=== PATIENT | female | born 1950 | race Caucasian/White ===

== ENCOUNTER → 2018-04-04 15:34 | Outpatient (CLI) | payer MEDICARE, SELFPAY ==
[2018-04-04 16:44] LABS: Add Manual Diff / Slide Review NO; Basophils Percent Auto 1.7 % (0-2); Eosinophils Percent Auto 5.8 % (2-4); Hematocrit 44.3 % (36-46); Hemoglobin 14.4 g/dL (12.0-16.0); Lymphocytes Percent Auto 26.3 % (25-40); Mean Corpuscular HGB Conc 32.5 % (30-36); Mean Corpuscular Hemoglobin 29.2 PG (26-34); Mean Corpuscular Volume 89.8 fL (80-100); Monocytes Percent Auto 8.1 % (3-14); Neutrophils Absolute Auto 3000 /uL (3000-5900); Neutrophils Percent Auto 58.1 % (50-75); Platelet Count 259 X10^3/uL (150-400); Red Blood Cell Count 4.93 X10^6/uL (4.0-5.2); Red Cell Distribution Width 14.3 % (11.6-14.8); White Blood Cell Count 5.2 X10^3/uL (4.5-11.0)
[2018-04-04 17:41] LABS: BUN Creatinine Ratio 13.8 (6-22); Blood Urea Nitrogen 11 mg/dL (7-17); Calcium 9.2 mg/dL (8.4-10.2); Carbon Dioxide 28 mmol/L (22-32); Chloride 102 mmol/L (98-107); Estimated Glomerular Filt Rate > 60.0 mL/min (>60); Glucose 88 mg/dL (80-110); HEMOLYSIS < 15 (0-50); Sodium 140 mmol/L (137-145)
== END ==
PROVIDERS: Family Provider Internal Medicine; PCP Internal Medicine; Visit Provider Orthopaedic Surgery Orthopaedic Surgery of the Spine
DX: Z01.818 Encounter for other preprocedural examination (principal)
CPT/HCPCS: 36415; 80048; 85025; 93005

== ENCOUNTER 2018-04-20 06:08 | Day surgery (SDC) | payer MEDICARE, SELFPAY ==
[2018-04-13 08:21] VITALS: BMI 32.2
[2018-04-20] VITALS (20 sets, daily range): BP systolic 97–142; BP diastolic 58–86; PULSE 71–100; RESP 8–20; TEMP 36.2–36.9; O2SAT 92–99; BMI 32.1
--- NOTE | 2018-04-20 | DI.RAD.S_ITS ---
PROCEDURE: XR CERVICAL SPINE 2V OR 3V INDICATIONS: C4-5, C5-6 ACDF TECHNIQUE: 2 view(s) of the cervical spine were acquired. COMPARISON: [facility], , MR CERVICAL SPINE WITHOUT CONTRAST, 02/08/2018, 17:55. [facility], CR, XR CERVICAL SPINE 2 OR 3 VIEWS, 02/03/2018, 10:54. FINDINGS: Limited intraoperative images demonstrating anterior fusion at C4-5, C5-6. There is good anatomic alignment. IMPRESSION: Anterior fusion as above. Dictated by: Lynn David M.D. on 04/20/2018 at 10:21 Approved by: Lynn David M.D. on 04/20/2018 at 10:34
[2018-04-20] MEDS: LACTATED RINGERS 1,000 ML 42 ML IV ×2 (07:00→09:46)
[2018-04-20] MEDS: CEFAZOLIN 2 GM/100 ML FROZ.PIGGY IV ×2 (08:10→16:55)
--- NOTE | 2018-04-20 08:26 | PM.PREOP ---
Pre-operative Note Interval Note Pre-op Check: Yes History & Physical Reviewed by Physician, Yes Exam Performed and Yes History & Physical exam performed today by Physician Changes: No
--- NOTE | 2018-04-20 08:46 | SUR.OPER ---
Supine, head on gel donut. Arms padded with gel pads, tucked at sides, towel roll under shoulders. Safety belt at thigh. Legs uncrossed.
--- NOTE | 2018-04-20 10:10 | PM.OP.1 ---
Operative Date/Time/Diagnoses Date of procedure: 04/20/18 Time of procedure: 08:14 Pre-op diagnosis: 1. C4-5, C5-6 spinal stenosis. 2. C4-5, C5-6 spondylosis with radiculopathy Post-op diagnosis: same Procedure & Clinicians Procedure: 1. C4-5, C5-6 anterior cervical diskectomy and fusion 2. C4-5, C5-6 anterior interbody cage placement 3. C4-5, C5-6 anterior instrumentation with plate and screw placement in C4-5 and C5-6 vertebrae 4. Utilization of microsurgical technique and operating microscope Same procedure as scheduled: No Indications: Patient has been having chronic neck pain and worsening cervical radiculopathy. Patient failed multiple conservative management with worsening pain weakness and numbness in her upper extremity. Patient has been having difficulty performing activity of daily living. After discussing risks benefits of treatment options, patient elected proceed with surgery. Surgeon: Charles Tapia Benefits Sales Consultant: Juhi Grande Click Yes if Unassisted: No Anesthesia Type: General Operative Notes Closure Type: primary Specimen(s): none sent Estimated Blood Loss (mL): 50 Blood products transfused: none Procedure in detail: Patient was seen in the preoperative area. Risks and benefits of the surgery was discussed with the patient. Operative consent was obtained and placed in the chart. Patient was then taken to the operative room. Prophylactic antibiotic was given less than 0.5 hr prior to skin incision. General anesthesia was administered. Patient was placed into a supine position on her radiolucent table. Bilateral shoulders were taped down to allow proper C-arm imaging. Anterior cervical area was prepped and draped in a sterile fashion. Time-out was performed at this time. Using lateral C-arm imaging, the level between C4 and C6 was identified and marked on patient's neck. A oblique incision from midline towards medial border of sternocleidomastoid muscle was made. The platysma muscle was incised in line with skin incision. Metzenbaum scissor was used to develop the plane between the medial border of sternocleidomastoid d and the strap muscles medially. The carotid sheath and its contents were identified and protected behind the hand-held retractor during the entire case. The plane between the carotid sheath and strap muscles was developed with Metzenbaum scissors. Dissection was made down to the level of the anterior cervical fascia. Longus colli muscle was incised on the anterior aspect of vertebral bodies bilaterally from C4-5, C5-6. Spinal needle was placed into the C5-6 disc space and confirmed with lateral C-arm imaging. Using microsurgical technique and operative microscope, anterior cervical diskectomy was performed at C4-5, C5-6 level. This was done by removing the disc material, removing the anterior and posterior osteophytes posterior longitudinal ligaments along with performing bilateral foraminotomies at both levels. Patient was found to have severe central and foraminal stenosis at both levels. Patient's stenosis was fully decompressed after decompression was completed. After the diskectomy was completed, 2 anterior interbody cages were obtained. The cages were packed with globus Kinects bone grafting material along with epidural blood. One cage each along with the bone grafting material was then packed into the interbody spaces from C4-5, C5-6 with one cage into each interbody level. After the cages were placed, the anterior cervical plate was stabilized to the C4-5, C5-6 vertebrae using 2 screws at each each level. Total 6 screws were placed. After confirming placement of the hardware with AP and lateral C-arm imaging, the screws were locked into the plate using the locking mechanism and torque limiting screwdriver. After the hardware was placed and confirmed with AP and lateral C-arm imaging, the wound was irrigated with sterile normal saline. The platysma muscle and the subcutaneous tissue was closed with 2-0 Vicryl. The skin was closed with 4-0Monocryl and Steri-Strips. Patient tolerated the procedure well. Patient was transferred recovery room in stable condition. There were no complications. Complications: none Condition: stable Disposition: Acute Care Plan for aftercare: Admit to inpatient hospital
[2018-04-20] MEDS: fentaNYL 100 MCG/2 ML INJ 50 MCG IV ×4 (10:24→10:50)
[2018-04-20] MEDS: HYDROMORPHONE 2 MG INJ 0.5 MG IV ×4 (10:27→10:47)
[2018-04-20] MEDS: hydrOXYzine pamoate 25 MG CAPSULE PO (10:38)
--- NOTE | 2018-04-20 10:56 | SUR.PHASEI ---
report given to Richie Hanson. Transferred care of pt to Richie Hanson at this time.
--- NOTE | 2018-04-20 10:59 | SUR.PHASEI ---
assumed care of pt, report taken from Kirstin Guillen RN.
[2018-04-20] MEDS: LORazepam 2 MG/ML SYRINGE 0.5 MG IV (11:02)
[2018-04-20] MEDS: SODIUM CHLORIDE 0.9% 1,000 ML 100 ML IV ×2 (11:48→22:26)
[2018-04-20] MEDS: OXYCODONE IR 5 MG TABLET 10 MG PO ×2 (12:33→18:02)
--- NOTE | 2018-04-20 14:12 | PC.NURSE ---
Pt returned from surgery at 1130 hours. Drowsy but oriented. Given percolone for pain control PO which seems to be effective. Plan to continue q4H. O2 sats = 96% on 2L. Dressing to ant neck CDI. Reports she has problems with stress and urgency incontinence. Offered bedpan at 1400 but declined at this time .
--- NOTE | 2018-04-20 15:04 | PT.IIE ---
Current Diagnoses Spondylolisthesis, cervical region (04/20/18) Other spondylosis with radiculopathy, cervical region (04/20/18) Spinal stenosis, cervical region (04/20/18) Surgery Performed Operation Date: 04/20/18 07:45 Actual Procedures p C4-5, C5-6 ACDF w/Anterior Instru. - Charles Tapia MD Surgical History (Last Updated 04/13/18 @ 09:25 by Mare Dietz, RN) Hx of sinus surgery (Acute) Status post trigger finger release (Acute) Status post colonoscopy Status post colonoscopy Status post hysterectomy Medical History (Last Updated 04/13/18 @ 09:25 by Mare Dietz RN) Chronic constipation (Acute) Chronic cough (Acute) Chronic low back pain (Acute) History of rectocele (Acute 03/01/16) Recurrent sinusitis (Acute) DENNIS (stress urinary incontinence, female) (Acute) Physical Therapy Inpatient Evaluation/Re-Eval M1 PT/OT-IP Prior Functional Status Start: 04/20/18 16:57 Freq: NEEDED Status: Active Protocol: Document 04/20/18 15:04 (Rec: 04/20/18 17:18 [email or web address]) Medical Review Prior Functional Status Communication No deficits noted. Mobility and Gait Pt states previous ambulation tolerance is ~20ft with quad cane. She can do the 10 stairs to her basement using the rails and going very slow then taking a break at the bottom. Prior Functional Level (Other details) Pt states no falls, but several close calls losing her balance, including 2 close calls in the last month. Social History Household Members spouse Living Arrangements House Number of Floors (Floors) Two Floors Number of Stairs To Enter/Railing? 2 steps to enter, posts on B sides. 10 steps R rail to her daylight basement. Rarely used. Pt set up to live on main floor. Home Environment Standard Height Toilet Walk in Shower Home Equipment Four Wheel Walker Quad Cane Shower Seat with Backrest Hand Held Shower Grab Bars In Shower Employment Status Retired Additional Social History Comment Pt has Tempurpedic bed with mechanical HOB/feet that go up /down M1 PT/OT-IP Prior Functional Status Start: 04/21/18 08:52 Freq: NEEDED Status: Active Protocol: Document 04/21/18 08:52 CCC (Rec: 04/21/18 09:05 [id number]) Medical Review Prior Functional Status Medical History Reviewed Yes Communication No deficits noted. Mobility and Gait Pt states previous ambulation tolerance is ~20ft with quad cane. She can do the 10 stairs to her basement using the rails and going very slow then taking a break at the bottom. Activities of Daily Living and IADL's Pt states able to to all ADl's and IADl's. Prior Functional Level (Other details) Pt states no falls, but several close calls losing her balance, including 2 close calls in the last month. Social History Household Members spouse Living Arrangements House Number of Floors (Floors) Two Floors Number of Stairs To Enter/Railing? 2 steps to enter, posts on B sides. 10 steps R rail to her daylight basement. Rarely used. Pt set up to live on main floor. Home Environment Standard Height Toilet Walk in Shower Home Equipment Four Wheel Walker Quad Cane Shower Seat with Backrest Hand Held Shower Grab Bars In Shower Employment Status Retired Additional Social History Comment Pt has Tempurpedic bed with mechanical HOB/feet that go up /down M2 PT-IP Current Condition Start: 04/20/18 16:57 Freq: NEEDED Status: Active Protocol: Document 04/20/18 15:04 (Rec: 04/20/18 17:18 [email or web address]) Physical Therapy Current Condition Current Condition Evaluation Date 04/20/18 Treatment Diagnosis C-spine discectomy/fusion; difficulty walking Onset Date 04/20/18 Precautions Cervical Spine Precautions Soft Collar for Comfort No Heavy Lifting Log Roll Brace soft collar M3 PT-IP Subjective Start: 04/20/18 16:57 Freq: NEEDED Status: Active Protocol: Document 04/20/18 15:04 (Rec: 04/20/18 17:18 [email or web address]) Subjective Physical Therapy Visit Type Type Initial Evaluation Visit Start Time 15:04 Visit Stop Time 15:31 Total Visit Minutes 27 Number of CHEMICAL PLANT TECHNICAL DIRECTOR Visits 0 Physical Therapy Visit Comments Patient Comments Pt hesitant to work with PT, but agrees to try. Patient Goals Pt plans to d/c home with who is avaliable for 24/ assist. Therapy Pain Assessment Pain When Pain Assessed During Mobility Pain Present Pain Present Pain Reported Location neck Intensity 7 Scale Used Numeric (1 - 10) Pain Behaviors Guarding Pain Management Techniques Modification of Treatment Re-positioning Timing of Activity with Medications M4 PT-IP Mobility and Gait Start: 04/20/18 16:57 Freq: NEEDED Status: Active Protocol: Document 04/20/18 15:04 (Rec: 04/20/18 17:18 [email or web address]) PT-Bed Mobility Assessment Rolling Type of Rolling Log Rolling Bilateral Level of Assist Standby Assistance Supine to Sit Supine to Sit Minimal Assistance 1 Person Assistance Sit to Supine Sit to Supine Minimal Assistance 1 Person Assistance Scooting Scooting to Edge of Bed Standby Assistance PT-Transfer Assessment Sit to and From Stand Sit to and from Stand Contact Guard Assistance Equipment Transfer Assistive Device Gait Belt Front Wheeled Walker Orthotic/Prosthetic Devices or Brace: Yes Transfers Transfer Destination Bed Transfer Technique Ambulates to/from bed Comments Mobility Comments Supine BP 111/82 HR 101. Pt performs log roll with [place] to lift legs getting to supine and to assist upper body to sitting and mod cues. Seated BP 120/67 HR 91. Sit <> stand is CGA with min cues. Pt c/o slight dizziness/nausea with standing. Instructed in deep breathing. BP 115/67. Pt reports symptoms of dizziness decrease and agrees to attempt some steps in room. Gait Assessment Gait Gait Assistance Required: Contact Guard Assist Distance (Feet) 10 Able to Maintain Weight Bearing Status Yes During Gait Assistive Devices Assistive Device Gait Belt Front Wheeled Walker Orthotic/Prosthetic Devices or Brace: Yes Gait Deviations General Gait Pattern Decreased Stride Length Decreased Feet Clearance Factors Limiting Gait Function Factors Limiting Gait Function Decreased Activity Tolerance Decreased Strength Limited Range of Motion Pain Poor Balance Poor Safety Awareness Comments Gait Comments Pt ambulates 10 ft in room with fww CGA. She is slow and guarded with ambulation, demonstrating small, low clearance steps. No LOB noted . BP post ambulation 109/75 HR 101. PT-Balance Assessment Sitting Balance and Reactions Static Sitting Balance Ability Good Dynamic Sitting Balance Ability Good Standing Balance and Reactions Static Standing Balance Ability Fair Dynamic Standing Balance Ability Fair Device Used fww M5 PT-IP Objective Assessments Start: 04/20/18 16:57 Freq: NEEDED Status: Active Protocol: Document 04/20/18 15:04 (Rec: 04/20/18 17:18 [email or web address]) Orientation Orientation/Cognition Level of Alertness Alert Orientation Name Birthday Place Situation Language Function Ability No Deficits Noted Safety Awareness Decreased Safety Awareness Comments Pt drowsy and responds appropriately but slowly. Gross Range of Motion Lower Extremity ROM Assessment Within Functional Limits Strength Comments Strength Comments BLE 4/5 Sensation Assessment Comments Sensation Comments Denies numbness and tingling. M6 PT-IP Treatment Start: 04/20/18 16:57 Freq: NEEDED Status: Active Protocol: Document 04/20/18 15:04 (Rec: 04/20/18 17:18 [email or web address]) Physical Therapy Treatment Education Education Provided Precautions Post-Op Packet Safety M7 PT-IP Assessment and Plan Start: 04/20/18 16:57 Freq: NEEDED Status: Active Protocol: Document 04/20/18 15:04 (Rec: 04/20/18 17:18 [email or web address]) PT Summary Assessment and Plan Potential Rehabilitation Potential Good Status of Condition at Evaluation Stable Summary Impairments Pain ROM Strength Balance Bed Mobility Transfers Gait Activity Tolerance Progress Towards Goals Slow Progress due to Pain Slow Progress due to Activity Tolerance Assessment Summary Pt s/p cervical discectomy and fusion with difficulty walking. She ambulated 10 ft CGA with fww and is [place] with bed mobility. Pt needs to complete stair climbing and progress ambulation prior to d /c. Pt is also a fall risk requiring balance assessment. When pt is medically stable, recommend d/c to home with 24/ 7 assist. Goals Bed Mobility Goal Standby Assistance Transfer Goal Standby Assistance Cane Front Wheeled Walker Four Wheeled Walker Gait Goal Standby Assistance Cane Front Wheel Walker Four Wheel Walker Gait Distance 20 Other Goals Pt will ambulate 20 ft withi least restrictive device (PLOF with quad cane). Days to Meet Goals 3 Frequency of Treatment Frequency Of Treatment Twice a Day Treatment Plan Physical Therapy Treatment Plan Bed Mobility Training Transfer Training Gait Training Therapeutic Exercise Balance Retraining Post Op Education Discharge Planning Hot or Cold Pack Neuromuscular Re-ed Coordination Retraining Manual Therapy Other Recommendations and Next Treatment Progress ambulation with least Focus restrictive device. Pt usually uses quad cane and owns a 4ww. She so far has only ambulated with fww. Up/down 2 steps with B rail ( she has B posts on her steps at home) Balance/fall risk assessment Recommendations To Nursing Amount of Assist Needed 1 Person Assist Discharge Recommendations PT Discharge Recommendations Home with 24/7 Assist Equipment Needed for Home Before fww pending pt functional Discharge status at d/c
[2018-04-20] MEDS: DOCUSATE 100 MG CAPSULE PO (20:47)
[2018-04-20] MEDS: SENNOSIDES 8.6 MG TABLET 17.2 MG PO (20:47)
[2018-04-20] MEDS: ALPRAZolam 0.25 MG TABLET 0.5 MG PO (20:53)
[2018-04-21] MEDS: BENZOCAINE/MENTHOL 1 LOZ PKT 1 EACH PO (00:02)
[2018-04-21] MEDS: CEFAZOLIN 2 GM/100 ML FROZ.PIGGY IV (00:03)
[2018-04-21] MEDS: OXYCODONE IR 5 MG TABLET 10 MG PO ×4 (00:05→11:06)
[2018-04-21 04:00] VITALS: BP 129/70; PULSE 78; RESP 16; TEMP 36.8; O2SAT 97
[2018-04-21] MEDS: LEVOTHYROXINE 50 MCG TABLET PO (06:42)
[2018-04-21] MEDS: DOCUSATE 100 MG CAPSULE PO (07:52)
[2018-04-21] MEDS: DULOXETINE 30 MG CAPSULE 60 MG PO (07:52)
[2018-04-21] MEDS: ALPRAZolam 0.25 MG TABLET 0.5 MG PO (07:58)
[2018-04-21 08:00] VITALS: BP 113/67; PULSE 88; RESP 16; TEMP 36.9; O2SAT 94
--- NOTE | 2018-04-21 09:00 | PT.IPTN ---
Current Diagnoses Spondylolisthesis, cervical region (04/20/18) Other spondylosis with radiculopathy, cervical region (04/20/18) Spinal stenosis, cervical region (04/20/18) Surgery Performed Operation Date: 04/20/18 07:45 Actual Procedures p C4-5, C5-6 ACDF w/Anterior Instru. - Charles Tapia MD Physical Therapy Treatment Note M2 PT-IP Current Condition Start: 04/20/18 16:57 Freq: NEEDED Status: Active Protocol: Document 04/20/18 15:04 (Rec: 04/20/18 17:18 [email or web address]) Physical Therapy Current Condition Current Condition Evaluation Date 04/20/18 Treatment Diagnosis C-spine discectomy/fusion; difficulty walking Onset Date 04/20/18 Precautions Cervical Spine Precautions Soft Collar for Comfort No Heavy Lifting Log Roll Brace soft collar M3 PT-IP Subjective Start: 04/20/18 16:57 Freq: NEEDED Status: Active Protocol: Document 04/21/18 09:00 GGD (Rec: 04/21/18 11:49 GGD [id number]) Subjective Physical Therapy Visit Type Type Treatment Note Visit Start Time 08:35 Visit Stop Time 09:00 Total Visit Minutes 25 Number of ROTARY RIG ENGINE OPERATOR Visits 1 Physical Therapy Visit Comments Patient Comments Pt states she hopes to go home today. Therapy Pain Assessment Pain When Pain Assessed During Mobility Pain Present Pain Present Pain Reported M4 PT-IP Mobility and Gait Start: 04/20/18 16:57 Freq: NEEDED Status: Active Protocol: Document 04/21/18 09:00 GGD (Rec: 04/21/18 11:49 GGD [id number]) PT-Transfer Assessment Sit to and From Stand Sit to and from Stand Contact Guard Assistance Equipment Transfer Assistive Device Gait Belt Front Wheeled Walker Orthotic/Prosthetic Devices or Brace: Yes Transfers Transfer Destination Bed Gait Assessment Gait Gait Assistance Required: Standby Assistance Distance (Feet) 25 Able to Maintain Weight Bearing Status Yes During Gait Assistive Devices Assistive Device Gait Belt Front Wheeled Walker Orthotic/Prosthetic Devices or Brace: Yes Gait Deviations General Gait Pattern Decreased Stride Length Decreased Feet Clearance Factors Limiting Gait Function Factors Limiting Gait Function Decreased Activity Tolerance Decreased Strength Limited Range of Motion Pain Poor Balance Poor Safety Awareness Comments Gait Comments trial of gait x 5 feet with quad cane. Then gait with FWW. M5 PT-IP Objective Assessments Start: 04/20/18 16:57 Freq: NEEDED Status: Active Protocol: Document 04/20/18 15:04 (Rec: 04/20/18 17:18 [email or web address]) Orientation Orientation/Cognition Level of Alertness Alert Orientation Name Birthday Place Situation Language Function Ability No Deficits Noted Safety Awareness Decreased Safety Awareness Comments Pt drowsy and responds appropriately but slowly. Gross Range of Motion Lower Extremity ROM Assessment Within Functional Limits Strength Comments Strength Comments BLE 4/5 Sensation Assessment Comments Sensation Comments Denies numbness and tingling. M6 PT-IP Treatment Start: 04/20/18 16:57 Freq: NEEDED Status: Active Protocol: Document 04/21/18 09:00 GGD (Rec: 04/21/18 11:49 GGD [id number]) Physical Therapy Treatment Education Education Provided Precautions Safety M7 PT-IP Assessment and Plan Start: 04/20/18 16:57 Freq: NEEDED Status: Active Protocol: Document 04/21/18 09:00 GGD (Rec: 04/21/18 11:49 GGD [id number]) PT Summary Assessment and Plan Summary Assessment Summary Pt had mild unsteadiness with gait with quad cane. She improved stability with FWW and had no LOB. She plans on using walker at home. She was safe and stable with transfers . Frequency of Treatment Frequency Of Treatment Twice a Day Treatment Plan Physical Therapy Treatment Plan Bed Mobility Training Transfer Training Gait Training Therapeutic Exercise Balance Retraining Post Op Education Discharge Planning Hot or Cold Pack Neuromuscular Re-ed Coordination Retraining Manual Therapy Recommendations To Nursing Amount of Assist Needed 1 Person Assist Discharge Recommendations PT Discharge Recommendations Home with 27/12 Assist
--- NOTE | 2018-04-21 09:05 | OT.IP.EVAL ---
Current Diagnoses Spondylolisthesis, cervical region (04/20/18) Other spondylosis with radiculopathy, cervical region (04/20/18) Spinal stenosis, cervical region (04/20/18) Surgery Performed Operation Date: 04/20/18 07:45 Actual Procedures p C4-5, C5-6 ACDF w/Anterior Instru. - Charles Tapia MD Past Medical History (Last Updated 04/13/18 @ 09:25 by Mare Dietz, RN) Chronic constipation (Acute) Chronic cough (Acute) Chronic low back pain (Acute) History of rectocele (Acute 03/01/16) Recurrent sinusitis (Acute) DENNIS (stress urinary incontinence, female) (Acute) Surgical History (Last Updated 04/13/18 @ 09:25 by Mare Dietz RN) Hx of sinus surgery (Acute) Status post trigger finger release (Acute) Status post colonoscopy Status post colonoscopy Status post hysterectomy Occupational Therapy Inpatient Evaluation/Re-Eval M1 PT/OT-IP Prior Functional Status Start: 04/20/18 16:57 Freq: NEEDED Status: Active Protocol: Document 04/20/18 15:04 (Rec: 04/20/18 17:18 [id number]) Medical Review Prior Functional Status Communication No deficits noted. Mobility and Gait Pt states previous ambulation tolerance is ~20ft with quad cane. She can do the 10 stairs to her basement using the rails and going very slow then taking a break at the bottom. Prior Functional Level (Other details) Pt states no falls, but several close calls losing her balance, including 2 close calls in the last month. Social History Household Members spouse Living Arrangements House Number of Floors (Floors) Two Floors Number of Stairs To Enter/Railing? 2 steps to enter, posts on B sides. 10 steps R rail to her daylight basement. Rarely used. Pt set up to live on main floor. Home Environment Standard Height Toilet Walk in Shower Home Equipment Four Wheel Walker Quad Cane Shower Seat with Backrest Hand Held Shower Grab Bars In Shower Employment Status Retired Additional Social History Comment Pt has Tempurpedic bed with mechanical HOB/feet that go up /down M1 PT/OT-IP Prior Functional Status Start: 04/21/18 08:52 Freq: NEEDED Status: Active Protocol: Document 04/21/18 08:52 [facility] (Rec: 04/21/18 09:05 [facility] [id number]) Medical Review Prior Functional Status Medical History Reviewed Yes Communication No deficits noted. Mobility and Gait Pt states previous ambulation tolerance is ~20ft with quad cane. She can do the 10 stairs to her basement using the rails and going very slow then taking a break at the bottom. Activities of Daily Living and IADL's Pt states able to to all ADl's and IADl's. Prior Functional Level (Other details) Pt states no falls, but several close calls losing her balance, including 2 close calls in the last month. Social History Household Members spouse Living Arrangements House Number of Floors (Floors) Two Floors Number of Stairs To Enter/Railing? 2 steps to enter, posts on B sides. 10 steps R rail to her daylight basement. Rarely used. Pt set up to live on main floor. Home Environment Standard Height Toilet Walk in Shower Home Equipment Four Wheel Walker Quad Cane Shower Seat with Backrest Hand Held Shower Grab Bars In Shower Employment Status Retired Additional Social History Comment Pt has Tempurpedic bed with mechanical HOB/feet that go up /down M2 OT-IP Current Condition Start: 04/21/18 08:52 Freq: Status: Active Protocol: Document 04/21/18 08:52 [facility] (Rec: 04/21/18 09:05 [facility] [id number]) Occupational Therapy Current Condition Current Condition Evaluation Date 04/21/18 Treatment Diagnosis C-spine discectomy/fusion Diagnosis Onset Date 04/21/18 Post Operative Precautions Cervical Spine Precautions Soft Collar for Comfort No Heavy Lifting Log Roll M3 OT- IP Subjective and Pain Start: 04/21/18 08:52 Freq: Status: Active Protocol: Document 04/21/18 08:52 [facility] (Rec: 04/21/18 09:05 [facility] [id number]) OT- Subjective Occupational Therapy Visit Type Type Initial Evaluation Visit Start Time 08:15 Visit Stop Time 08:40 Total Visit Minutes 25 Occupational Therapy Visit Comments Patient Comments Pt agreeable to get up. Patient/Caregiver Goals Pt wanting to go home when stable. OT Pain Assessment Pain When Pain Assessed At Rest Pain Present Pain Present Denied Pain M4 OT- IP ADL's Start: 04/21/18 08:52 Freq: Status: Active Protocol: Document 04/21/18 08:52 [facility] (Rec: 04/21/18 09:05 [facility] [id number]) OT MNA-Hhmi-Divtaow Comments OT Self-Feeding Comments Educated pt to alternate between solid and liquids, chew food longer and softer food will make it easier to chew. OT ADL-Grooming General Evaluation Grooming Ability Standby Assistance Areas Needing Assistance Retrieving/Set-up of Grooming Items Comments OT Grooming Comments Pt vc for soft collar rommel tighter to support her neck better and then able to do all on her own. Pt tends to want to where the collar loose as feel a little claustrophobic. OT ADL-Oral Care Devices Oral Care Devices Electric Toothbrush M5 OT- IP IADL's Start: 04/21/18 08:52 Freq: Status: Active Protocol: Document 04/21/18 08:52 [facility] (Rec: 04/21/18 09:05 [facility] [id number]) OT-Instrumental Activities of Daily Living Medication Management Medication Management Comments states can provide assist as pt a bit groggy from pain medications. Meal Preparation Meal Preparation Comments to assist. Resolute Professional Resolute Professional Comments to assist. M6 OT- IP Functional Cognition Start: 04/21/18 08:52 Freq: Status: Active Protocol: Document 04/21/18 08:52 [facility] (Rec: 04/21/18 09:05 [facility] [id number]) Cognitive Factors Limiting Selfcare Function Cognitive Ability Level of Alertness Alert Patient Orientation Name Situation Attention Span Ability Capable of Focused Attention Capable of Sustained Attention Ability to Follow Commands Able to Follow One Step Commands Memory Description No Deficits Noted Safety Awareness Underestimates Need for Assistance Cognitive Comments Cognitive Assessment Comments Pt a bit groggy from medications. Pt needing vc to push up from the surface on the bed versus just grab the walker to stand. M7 OT- IP Mobility and Balance Start: 04/21/18 08:52 Freq: Status: Active Protocol: Document 04/21/18 08:52 [facility] (Rec: 04/21/18 09:05 [facility] [id number]) OT- Bed Mobility Assessment Rolling Type of Rolling Roll to Left Level of Assistance Standby Assistance Head of Bed Elevated Supine to Sit Supine to Sit Assist Standby Assistance OT-Transfer Assessment Sit to and From Stand Sit to and from Stand Standby Assistance Transfers Transfer Ability Standby Assistance Technique Transfer Destination Chair Transfer Technique Stand Step Pivot Devices Transfer Assistive Devices Gait Belt Front Wheeled Walker Comments Mobility Comments Pt's able to assist pt and needing SBA, pt will need CGA to YANIV for uneven surfaces. Pt O2 on 2L at 99- 100% and trial on RA after getting up dropped from 97% to 93% and then back up to 98% after educated to take a few deep breaths. Nurse notified and okayed to keep O2 off. OT- Balance Assessment Sitting Balance and Reactions Static Sitting Balance Ability Normal Dynamic Sitting Balance Ability Normal Standing Balance and Reactions Static Standing Balance Ability Normal Dynamic Standing Balance Ability Good M8 OT- IP Objective Assessments Start: 04/21/18 08:52 Freq: Status: Active Protocol: Document 04/21/18 08:52 [facility] (Rec: 04/21/18 09:05 [facility] [id number]) OT Gross Range of Motion Upper Extremity Range of Motion Assessment Within Functional Limits OT-Muscle Tone Assessment Muscle Tone WNL Yes M9 OT- IP Assessment and Plan Start: 04/21/18 08:52 Freq: Status: Active Protocol: Document 04/21/18 08:52 [facility] (Rec: 04/21/18 09:05 [facility] [id number]) OT Summary Assessment and Plan Potential Rehabilitation Potential Excellent Analytic Complexity at Evaluation Low Summary OT Impairments Functional Cognition Functional Mobility Dressing Bathing Progress Towards Goals Progressing Toward Goals Assessment Summary Pt low complexity and doing well, to be there to provide assist especially for ADL and IADl needs. Pt needing to use FWW at this time for functional mobility. Pt to go home with when medically stable. Goals Dressing Goal Independent Toileting Goal Independent Bathing Goal Standby Assistance Toilet Transfer Goal Independent Shower Transfer Goal Standby Assistance Patient/Caregiver Education Goal Demonstrate Post-Op Precautions Caregiver Independent Assisting Patient Days to Meet Goals 1 Frequency of Treatment Frequency Of Treatment Once a Day Treatment Plan OT Treatment Plan ADL Training Functional Cognition Training Functional Mobility Patient/Family Education Discharge Planning Other Treatment Recommendations and Next Shower Treatment Focus Discharge Recommendations OT Discharge Recommendations Home with 27/12 Assist
--- NOTE | 2018-04-21 10:33 | PM.DS.1 ---
History of Present Illness Date Patient Seen: 04/21/18 Time Patient Seen: 10:33 Chief complaint: [id number] Narrative: Hospital day 2, postop day 1 following C5-6, C6-7 ACDF with cage and anterior plate and screws by Dr. Tapia. Pain controlled with oxycodone 10 mg. she is able to swallow with slight difficulty. States that her preoperative arm symptoms have resolved. She does feel that she is ready to be discharged home today. Discharge Providers Date of admission: 04/20/18 06:08 Primary care physician: EDMUND King Consults: 04/20/18 11:34 Consult to Occupational Therapy Evaluate & Treat Comment: Physician Instructions: Evaluate and treat Consult to Physical Therapy Evaluate & Treat Comment: Physician Instructions: Evaluate and Treat Discharge provider: Ru Diaz PA-C Discharge Date: 04/21/18 Summary Discharge Diagnosis: Status post C5-6, C6-7 ACDF, cage, anterior plate. Hospital Course: Patient brought to hospital on 04/20/2018 for above-noted surgery. She remained stable postoperatively. Ambulating with physical therapy. She felt that she was able to be discharged home on postop day 1. Status at Discharge Cognitive/behavioral status at discharge: alert, oriented in no acute distress sitting in chair. Overall status at discharge: patient is progressing back to baseline Time Spent with Patient Less than 30 minutes Exam Vital Signs (past 8 hours): - 04/21/18 04:00 Temperature 98.3 F Pulse Rate 78 Respiratory Rate 16 Blood Pressure 129/70 Pulse Oximetry 97 Oxygen Delivery Method Room Air Oxygen Flow Rate 2 Discharge Plan Discharge Plan Patient Disposition: Home Discharge comment: Discharged home after clearance by PT. Continue with soft cervical collar for the next week. Discharge Med Rec/Prescriptions Prescriptions: New acetaminophen 325 mg Tablet 650 mg PO Q6HR PRN (Reason: Pain, Mild (1-3)) Qty: 30 RF: 0 oxycodone 5 mg Tablet 10 mg PO Q3HR PRN (Reason: Pain, Severe (7-10)) Qty: 30 RF: 0 benzocaine-menthol [Cepacol Sore Throat (shaji-men)] 15-3.6 mg Lozenge 1 ea PO Q1HR PRN (Reason: Sore Throat) Qty: 30 RF: 0 Continue loratadine [Claritin] 10 MG tablet 10 mg PO DAILY PRN (Reason: bronchial allergy) Qty: 0 RF: 0 estradiol [Climara] 0.1 MG/24 HR patch weekly 0.1 mg Topical Q7D@0900 Qty: 12 RF: 3 alprazolam [Xanax] 0.5 mg tablet See Label Instructions PO TIDP PRN (Reason: anxiety) Qty: 30 RF: 0 levothyroxine 50 mcg tablet 50 mcg PO QAM RF: 0 duloxetine 60 mg capsule,delayed release(DR/EC) 60 mg PO DAILY Qty: 90 RF: 3 acetaminophen [Tylenol Extra Strength] 500 mg Tablet 1,000 mg PO BID PRN (Reason: pain) RF: 0 gemrip-obo-T-Mn-herb#21 [Glucosamine-MSM Complex] Tablet 1 tab PO BID RF: 0 Follow up/Referrals: Emperatriz Peters ARNP [Primary Care Provider] - As previously scheduled Discharge Orders: Discharge (Order); Ordered 04/21/18 Ordered By: Ru Diaz Provider Discharge Instructions Diet: Diet as Tolerated Diet comment: use liquid and soft diet for the next 1-2 weeks as needed. Activity: Avoid excessive bending or twisting of head and neck. He has soft collar as needed. No lifting or carrying more than 5-10 lb. Skin/Wound/Dressing Care Dressing: Keep dressing to left neck dry and clean. Visit Report/Discharge Packet Instructions: DI for Anterior Cervical Discectomy and Fusion, Oxycodone Visit Report Forms: Stroke Signs & Symptoms Discharge Data Primary Care Provider: Emperatriz Peters Attending Provider: Charles Tapia Discharges patient from system. Discharge Date/Time: 04/21/18 12:07 Quality VTE Deep Vein Thrombosis/Pulmonary Embolism Present on Admission: No
--- NOTE | 2018-04-21 10:36 | PM.DS.1 ---
History of Present Illness Chief complaint: [id number] Narrative: Hospital day 2, postop day 1 following C5-6, C6-7 ACDF with cage and anterior plate and screws by Dr. Tapia. Pain controlled with oxycodone 10 mg. she is able to swallow with slight difficulty. States that her preoperative arm symptoms have resolved. She does feel that she is ready to be discharged home today. Discharge Providers Date of admission: 04/20/18 06:08 Primary care physician: EDMUND King Consults: 04/20/18 11:34 Consult to Occupational Therapy Evaluate & Treat Comment: Physician Instructions: Evaluate and treat Consult to Physical Therapy Evaluate & Treat Comment: Physician Instructions: Evaluate and Treat Discharge provider: Ru Diaz PA-C Discharge Date: 04/21/18 Summary Discharge Diagnosis: Status post C5-6, C6-7 ACDF with cage and anterior plate. Hospital Course: Patient brought to hospital on 04/20/2018 for above noted surgery. She remained stable overnight. Pain was controlled with oxycodone. Her preoperative arm symptoms had resolved. Patient felt she was ready to be discharged home on postop day 1. Status at Discharge Cognitive/behavioral status at discharge: alert, oriented no acute distress sitting in chair. Overall status at discharge: patient is progressing back to baseline Time Spent with Patient Less than 30 minutes Exam Vital Signs (past 8 hours): - 04/21/18 04:00 Temperature 98.3 F Pulse Rate 78 Respiratory Rate 16 Blood Pressure 129/70 Pulse Oximetry 97 Oxygen Delivery Method Room Air Oxygen Flow Rate 2 Narrative Exam Narrative: Neck. Dressing to left anterior neck is dry without drainage or inflammation. Soft cervical collar in place. Arms. 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 Pulses and sensation and symmetrical. Good strength on elbow flexion and extension and shoulder AB duction against resistance is symmetrical. Discharge Plan Discharge Plan Patient Disposition: Home Discharge comment: Discharged home after clearance by PT. Continue with soft cervical collar for the next week. Discharge Med Rec/Prescriptions Prescriptions: New acetaminophen 325 mg Tablet 650 mg PO Q6HR PRN (Reason: Pain, Mild (1-3)) Qty: 30 RF: 0 oxycodone 5 mg Tablet 10 mg PO Q3HR PRN (Reason: Pain, Severe (7-10)) Qty: 30 RF: 0 benzocaine-menthol [Cepacol Sore Throat (shaji-men)] 15-3.6 mg Lozenge 1 ea PO Q1HR PRN (Reason: Sore Throat) Qty: 30 RF: 0 Continue loratadine [Claritin] 10 MG tablet 10 mg PO DAILY PRN (Reason: bronchial allergy) Qty: 0 RF: 0 estradiol [Climara] 0.1 MG/24 HR patch weekly 0.1 mg Topical Q7D@0900 Qty: 12 RF: 3 alprazolam [Xanax] 0.5 mg tablet See Label Instructions PO TIDP PRN (Reason: anxiety) Qty: 30 RF: 0 levothyroxine 50 mcg tablet 50 mcg PO QAM RF: 0 duloxetine 60 mg capsule,delayed release(DR/EC) 60 mg PO DAILY Qty: 90 RF: 3 acetaminophen [Tylenol Extra Strength] 500 mg Tablet 1,000 mg PO BID PRN (Reason: pain) RF: 0 [id number]-aow-Q-Mn-herb#21 [Glucosamine-MSM Complex] Tablet 1 tab PO BID RF: 0 Follow up/Referrals: Emperatriz Peters ARNP [Primary Care Provider] - As previously scheduled Provider Discharge Instructions Diet: Diet as Tolerated Diet comment: use liquid and soft diet for the next 1-2 weeks as needed. Activity: Avoid excessive bending or twisting of head and neck. He has soft collar as needed. No lifting or carrying more than 5-10 lb. Skin/Wound/Dressing Care Report to your healthcare provider any signs of infection, such as:: chills, fever, night sweats, increased pain and unusual drainage Dressing: Keep dressing to left neck dry and clean. Discharge Data Primary Care Provider: Emperatriz Peters Attending Provider: Charles Tapia Admit Date/Time: 04/20/18 06:08 Quality VTE Deep Vein Thrombosis/Pulmonary Embolism Present on Admission: No
--- NOTE | 2018-04-21 10:57 | CM.DANOTE ---
Patient is a 68 year old female who was admitted on 04/20/18 for C4-C6 surgery. Pt has [facility] and [employer] for insurance and her PCP is Dr. Emperatriz Peters. EMR was reviewed. Per Ortho PA, pt medically stable to d/c home with spouse today after PT. Per PT, completed CG training with pt and spouse and recommending safe d/c home with 24/7 assist. SW met bedside with pt and spouse and explained role and they confirmed that they live at home in [place] and are able to keep the pt on the main floor at d/c without the need for doing stairs at home. Pt and spouse do not have concerns about d/c home today and are hopeful to leave around 1100 after pain medication and meds get faxed into [facility] to be filled and RN aware. Pt's DPOA is her spouse and she denies any hx of HH or SNF and they do not anticipate any SW needs Plan: Patient to d/c home via spouse POV today after medication and no SW needs at this time. MARY KAY Wallace Discharge Planning/Care Management CM Discharge Assessment Start: 04/21/18 10:54 Freq: Status: Active Protocol: Document 04/21/18 10:55 BF (Rec: 04/21/18 10:56 [id number]) Discharge Planning Assessment Assigned Train Gateman MARY KAY Warren DPLORENA/Assigned Designee Name spouse Sammy Carrillo Contact Information [phone] Advance Directives? Yes Advance Directives on File No History Provided By Patient Significant Other Medical Record Has Patient been admitted in last 30 No days? Prior Living Arrangements House Household Members spouse Type of transporation used prior to Drives own vehicle admit Independent with ADL's Yes Is patient alert and oriented? Yes Caregiver for Another No Comment Home with spouse to provide 24 /7 assist Barriers to Discharge No Discharge Plan Home Transportation Arrangement Spouse bedside and can provide transport today Referrals Initiated None needed Whiteboard Updated in Patient Room with Yes name and ext. # of Train Gateman Review Status In Process Please Provide Date Initial DC 04/21/18 Assessment Was Performed Next Review Type Continued Stay Review Pre-Anesthesia Assessment Start: 04/13/18 08:21 Freq: Status: Complete Protocol: Document 04/13/18 08:21 CAB (Rec: 04/13/18 09:23 CAB [id number]) Pre-Anesthesia Assessment Patient Also Known As Rashid (AKA) Patient Information Reviewed Via Phone Assessment Assessment Completed With Patient Lab Results BMP/CMP CBC EKG Primary Care Provider Emperatriz Peters Seen Specialist in Last 12 Months Yes Specialist Seen Orthopedist Primary Language [place] Prop Cutter Required No Height 160.02 cm Weight 82.554 kg Body Mass Index (BMI) 32.2 Hearing Ability Normal Visual Assist Glasses Dentition Type Teeth, Natural Present Barriers to Learning None Other Aids No Hx Anesthesia Reactions No Hx Family Anesthesia Reaction No Hx Malignant Hyperthermia No Hx Blood Transfusions No Anesthesia Review Requested No Jacquard Loom Card Changer No alcohol intake current alcohol intake frequency holidays/special occasions only Alcohol Intake Frequency Other: Very rare Smoking Status Current every day smoker Tobacco type cigarettes Smoking packs per day 0.5 Substance Use Type does not use Pain Present Pain Reported Musculoskeletal Symptoms Abnormal Gait Back Pain Difficulty Walking Joint Pain Limited Range of Motion Neck Pain Radiating Pain into Limb Tingling History of Falling (Recent or History of No ) Patient is completely paralyzed or No completely immobile Prosthesis or Orthotic Device Cane Front Wheel Walker Mental Status Oriented to own ability Comment My balance is really off Is patient on oxygen? No Does patient have MONTEZ/SOB No Currently Taking a Beta Mikayla No Can You Climb a Flight of Stairs Without Yes SOB Hx Chest Pain No Hx SOB No Hx Syncope or Dizziness No Anti-Coagulant Therapy No Has a Clearing Tub Worker No Cardiac Testing No Hx Pacemaker/ICD No Pacemaker Rep Required? No Cardiac Clearance Received Not Applicable Diet Type At Home Regular dysphagia Yes: Recent r/t solids pressure on my esophagus Bladder Pattern Incontinent, Stress Urinary Catheter Present No Hx Urinary Self Catheterization No Diabetes No Patient No Lactating No Hx Drug Resistant Organism No Presence of External or Internal Medical No Devices Have you traveled outside the [facility] in the last 30 days? Marital Status Lives With spouse Prior Living Arrangements House Number of Floors (Floors) Two Floors Number of Stairs To Enter/Railing? 2 steps, no railing Support System Child/Children Spouse Does the Patient Have Assistance After Yes Surgery Patient Discharge Plan Description Return Home Comment Pt advised 1 night length of stay per surgeon's office Feels Safe in Current Environment Yes Been Physically Hurt or Threatened By a No Person in Current Environment Do you have thoughts of harming yourself None or others? Are you currently considering suicide? No Do you have a plan to hurt yourself or No Plan others? Comment Hx of Agoraphobia w/panic disorder Do You Have Any Spiritual Beliefs That No May Affect Your HC Choices? Do You Have Any Cultural Practices That No May Affect Your HC Choices? Spiritual Referral None Who Can We Speak to About Patient's Care Family, friends Identifying Code for Release of Patient Declines to issue Information Health Care Proxy/Next of Kin Sammy Nguyen () Health Care Proxy Emergency Contact Name Sammy Nguyen () Emergency Contact Advance Directives? Yes Advance Directives on File No Requested Patient Bring Advanced Yes Directives DOS Power of Returns Processor Yes Power of Returns Processor Name Sammy Nguyen () Power of Returns Processor PAC Instructions Durable medical equipment Medications to take/avoid Nasal antibiotic No ETOH/petroleum product on skin DOS NPO Post-op transportation Pre-surgical wash Sturdy shoes/comfortable clothes Do not bring valuables and remove jewelry
--- NOTE | 2018-04-21 11:00 | ST.IPSCREEN ---
[employer] present for screen after ACDF surgery. Patient stated that she was able to swallow without difficulty, but did not feel ready for dry, crunchy food like toast. She verbalized no pain. [employer] provided education regarding swallowing and voice rehabilitation following ACDF surgery. Recommended that if dysphagia/dysphonia symptoms arise in the upcoming days, follow up with PCP for potential speech therapy evaluation. Patient verbalized understanding and agreed. No eval.
--- NOTE | 2018-04-21 12:07 | PC.NURSE ---
@ 1150 d/c instructions, including f/u appointment, rx medications, s/sx infection given to patient and patient's spouse. Gauze drsg secured with tegaderm to anterior neck, c-collar in place; patient also instructed regarding s/sx pneumonia, and importance of using IS
== END 2018-04-21 12:07 | disposition home or self-care (01) ==
LOC: AC 04-21 10:39 → OR 04-21 13:36
PROVIDERS: Family Provider Internal Medicine; PCP Internal Medicine; Visit Provider Orthopaedic Surgery Orthopaedic Surgery of the Spine
PROC: (CPT 22551; principal; 2018-04-20 07:45)
DX: M48.02 Spinal stenosis, cervical region (principal); M47.22 Other spondylosis with radiculopathy, cervical region; M43.12 Spondylolisthesis, cervical region
CPT/HCPCS: 22551; 22552; 22853; 72040; 76001; 97116; 97162; 97165; 97530; 99406; C1776; J0330; J0690; J1100; J1170; J2060; J2250; J2405; J2704; J3010

== ENCOUNTER 2018-05-28 08:29 | Emergency (ER) | payer MEDICARE, SELFPAY ==
[2018-04-20 12:00] VITALS: BMI 32.1
[2018-05-28 08:48] VITALS: BP 155/76; PULSE 83; RESP 20; TEMP 36.7; O2SAT 96
[2018-05-28] MEDS: ONDANSETRON 4 MG ODT PO (09:23)
[2018-05-28] MEDS: LORazepam 0.5 MG TABLET PO (09:23)
--- NOTE | 2018-05-28 09:49 | PC.NURSE ---
To have MRI of LB. Asked pt to remove metal from herself. She is and giving jewelery and such to
--- NOTE | 2018-05-28 10:07 | PC.NURSE ---
Pt returns from MRI. Tech states pt could not tolerate the procedure due to an anxiety response. MD mercedes
--- NOTE | 2018-05-28 10:28 | ED_ITS ---
HPI - Anxiety General Chief Complaint: Anxiety Stated Complaint: PANIC ATTACK Time Seen by Provider: 05/28/18 08:42 Related Data Home Medications Medication Instructions Recorded Confirmed loratadine [Claritin] 10 mg PO DAILY PRN #0 04/25/12 04/20/18 acetaminophen [Tylenol Extra 1,000 mg PO BID PRN 04/13/18 04/20/18 Strength] [id number]#21 1 tab PO BID 04/20/18 04/20/18 [Glucosamine-MSM Complex] Previous Rx's Medication Instructions Recorded estradiol [Climara] 0.1 mg TOPICAL Q7D@0900 #12 patch 05/03/17 duloxetine 60 mg capsule,delayed 60 mg PO DAILY #90 cap 10/24/17 release acetaminophen 650 mg PO Q6HR PRN #30 tab 04/21/18 benzocaine-menthol [Cepacol Sore 1 ea PO Q1HR PRN #30 ea 04/21/18 Throat (shaji-men)] oxycodone 10 mg PO Q3HR PRN #30 tab 04/21/18 levothyroxine 50 mcg tablet 50 mcg PO QAM #90 tab 05/11/18 alprazolam 0.5 mg tablet See Label Instructions PO TIDP PRN 05/24/18 #30 tab Allergies Allergy/AdvReac Type Severity Reaction Status Date / Time No Known Drug Allergies Allergy Verified 04/20/18 06:42 PFSH Medical History Chronic constipation (Acute) Chronic cough (Acute) Chronic low back pain (Acute) History of rectocele (Acute 03/01/16) Recurrent sinusitis (Acute) DENNIS (stress urinary incontinence, female) (Acute) Surgical History Hx of sinus surgery (Acute) Status post trigger finger release (Acute) Status post colonoscopy Status post colonoscopy Status post hysterectomy Family History Brother Age: 70 Diabetes mellitus Father Diabetes mellitus Mother Mental health problem Grandfather Cancer Social History household members: spouse Smoking Status: Current every day smoker alcohol intake: current Exam Initial Vital Signs Initial Vital Signs: Vital Signs Temperature 98.0 F 05/28/18 08:48 Pulse Rate 83 05/28/18 08:48 Respiratory Rate 20 05/28/18 08:48 Blood Pressure 155/76 H 05/28/18 08:48 Pulse Oximetry 96 05/28/18 08:48 Course Orders Ordered: ED Orders 05/28/18 09:40 MR lumbar spine wo con Stat Discontinued Medications Lorazepam (Ativan) 0.5 mg PO NOW ONE Stop: 05/28/18 09:11 Last Admin: 05/28/18 09:23 Dose: 0.5 mg Ondansetron HCl (Zofran Odt) 4 mg PO NOW ONE Stop: 05/28/18 09:11 Last Admin: 05/28/18 09:23 Dose: 4 mg Vital Signs - 8 hr 05/28/18 08:48 Temperature 98.0 F Pulse Rate 83 Respiratory Rate 20 Blood Pressure 155/76 H Pulse Oximetry 96 Discharge Plan Departure Patient Disposition: Home Clinical Impression: Back pain, Anxiety Instructions: DI for Anxiety -- Adult Activity Restrictions/Additional Instructions: *You have been diagnosed with [ acute on chronic low back pain, anxiety reaction ] *What to do: *continue to take medications as directed *Follow up with your primary care provider in 2-3 days, call for an appointment. Let them know you were seen in the Emergency Department and that we ask that you be seen in follow up *Return to ER if you should have any new, worsening or concerning symptoms , such as [worsening pain, numbness in her leg, loss of control of bowel or bladder, or other bothersome symptoms ] Prescriptions: No Action loratadine [Claritin] 10 MG tablet 10 mg PO DAILY PRN (Reason: bronchial allergy) Qty: 0 RF: 0 estradiol [Climara] 0.1 MG/24 HR patch weekly 0.1 mg Topical Q7D@0900 Qty: 12 RF: 3 levothyroxine 50 mcg tablet 50 mcg PO QAM Qty: 90 RF: 0 alprazolam [Xanax] 0.5 mg tablet See Label Instructions PO TIDP PRN (Reason: anxiety) Qty: 30 RF: 0 duloxetine 60 mg capsule,delayed release(DR/EC) 60 mg PO DAILY Qty: 90 RF: 3 acetaminophen [Tylenol Extra Strength] 500 mg Tablet 1,000 mg PO BID PRN (Reason: pain) RF: 0 [id number]-Mn-herb#21 [Glucosamine-MSM Complex] Tablet 1 tab PO BID RF: 0 acetaminophen 325 mg Tablet 650 mg PO Q6HR PRN (Reason: Pain, Mild (1-3)) Qty: 30 RF: 0 oxycodone 5 mg Tablet 10 mg PO Q3HR PRN (Reason: Pain, Severe (7-10)) Qty: 30 RF: 0 benzocaine-menthol [Cepacol Sore Throat (shaji-men)] 15-3.6 mg Lozenge 1 ea PO Q1HR PRN (Reason: Sore Throat) Qty: 30 RF: 0 Referrals: Emperatriz Peters ARNP [Primary Care Provider] -
[2018-05-28 10:44] VITALS: BP 135/74; PULSE 82; RESP 15; O2SAT 96
== END 2018-05-28 10:45 | disposition home or self-care (01) ==
PROVIDERS: Emergency Provider Emergency Medicine; Family Provider Internal Medicine; PCP Internal Medicine
DX: M54.9 Dorsalgia, unspecified (principal); F41.9 Anxiety disorder, unspecified
CPT/HCPCS: 99283

== ENCOUNTER → 2018-06-02 12:40 | Outpatient (CLI) | payer MEDICARE, SELFPAY ==
[2018-04-20 12:00] VITALS: BMI 32.1
--- NOTE | 2018-06-02 | DI.MRI.S_ITS ---
PROCEDURE: MR LUMBAR SPINE WO CON INDICATIONS: LUMBAR SPINE RADICULOPATHY TECHNIQUE: Noncontrast sagittal T1 spin echo and T2 fast echo, sagittal STIR, axial T1 and T2 fast spin echo through the lumbar spine. In cases with scoliosis, additional coronal T2 fast spin echo may be performed. COMPARISON: [facility], L-SPINE 2-3 VIEWS, 05/03/2017, 11:17. FINDINGS: Image quality: Excellent. Alignment and Curvature: 5 lumbar type vertebral bodies are present by plain film. Mild focal kyphosis at L1-L2. Mild grade 1 retrolisthesis of L2 on L3, L3 on L4, and L4 on L5. Mild grade 1 anterolisthesis of L5 on S1. Moderate reactive signal within the endplates adjacent to the L2-L3 intervertebral disc. Mild reactive signal within the endplates adjacent to the L3-L4, L4-L5, and L5-S1 intervertebral discs. Bone Marrow: Marrow is of normal overall signal. No acute vertebral body compression fractures. Spinal Cord: Conus medullaris terminates at the mid L1 level. Visualized cord demonstrates normal signal and size. Paraspinous Soft Tissues: No paravertebral masses. L1-L2: Severe disc height loss and desiccation. Mild diffuse disc bulge. Mild bilateral facet and ligamentum flavum hypertrophy. Mild epidural lipomatosis. Mild canal stenosis. Mild bilateral foraminal stenosis. L2-L3: Moderate disc height loss and desiccation. Mild diffuse disc bulge with superimposed left paracentral disc extrusion, which extends inferiorly within the lateral recess. Mild bilateral facet and ligament flavum hypertrophy. Mild epidural lipomatosis. Moderate canal stenosis. Mild foraminal stenosis bilaterally. Left L3 nerve root impingement. L3-L4: Moderate disc height loss and desiccation. Mild diffuse disc bulge with superimposed right posterolateral protrusion. Mild bilateral facet and ligament flavum hypertrophy. Mild epidural lipomatosis. Mild canal stenosis. Mild right greater than left foraminal stenosis. Mild posterior deviation of the right L4 nerve root within the lateral recess. L4-L5: Severe disc height loss and desiccation. Mild diffuse disc bulge/osteophyte. Mild bilateral facet and ligamentum flavum hypertrophy. Mild canal stenosis. Moderate subarticular foraminal stenosis bilaterally. L5-S1: Moderate disc height loss and desiccation. Mild diffuse disc bulge. Mild bilateral facet and ligamentum flavum hypertrophy. Mild canal stenosis. Severe subarticular foraminal stenosis bilaterally with bilateral intraforaminal L5 nerve root flattening. IMPRESSION: 1.Multilevel degenerative disc and facet disease, as well as ligamentum flavum hypertrophy and epidural lipomatosis. 2. Mild multilevel canal stenoses. 3. Left L3 nerve root impingement at the L2-L3 level. 4. Right L4 nerve root impingement at the L3-L4 level. 5. Bilateral L5 nerve root flattening at the L5-S1 level. 6. Recommend correlation with clinical symptoms to ascertain relevance of these findings. Dictated by: Wesley Roberts M.D. on 06/02/2018 at 14:25 Approved by: Wesley Roberts M.D. on 06/02/2018 at 14:44
== END ==
PROVIDERS: Family Provider Internal Medicine; PCP Internal Medicine; Visit Provider Orthopaedic Surgery Orthopaedic Surgery of the Spine
DX: M51.16 Intervertebral disc disorders with radiculopathy, lumbar region (principal); M51.17 Intervertebral disc disorders with radiculopathy, lumbosacral region; M48.061 Spinal stenosis, lumbar region without neurogenic claudication; M48.07 Spinal stenosis, lumbosacral region; E88.2 Lipomatosis, not elsewhere classified
CPT/HCPCS: 72148

== ENCOUNTER → 2018-07-28 11:30 | Outpatient (CLI) | payer MEDICARE, SELFPAY ==
[2018-04-20 12:00] VITALS: BMI 32.1
[2018-07-28 11:48] LABS: Bacteria Urine None Seen; RBC Urine None Seen (0-5/HPF); WBC Urine None Seen (0-5/HPF)
[2018-07-28 12:24] LABS: Hematocrit 45.9 % (36-46); Hemoglobin 14.9 g/dL (12.0-16.0); Mean Corpuscular HGB Conc 32.4 % (30-36); Mean Corpuscular Hemoglobin 29.2 PG (26-34); Mean Corpuscular Volume 90.2 fL (80-100); Platelet Count 264 X10^3/uL (150-400); Red Blood Cell Count 5.09 X10^6/uL (4.0-5.2); Red Cell Distribution Width 13.9 % (11.6-14.8); White Blood Cell Count 5.8 X10^3/uL (4.5-11.0)
[2018-07-28 12:56] LABS: BUN Creatinine Ratio 16.3 (6-22); Blood Urea Nitrogen 13 mg/dL (7-17); Calcium 9.5 mg/dL (8.4-10.2); Carbon Dioxide 27 mmol/L (22-32); Chloride 101 mmol/L (98-107); Estimated Glomerular Filt Rate > 60.0 mL/min (>60); Glucose 100 mg/dL (80-110); HEMOLYSIS < 15 (0-50); Potassium 4.6 mmol/L (3.4-5.1); Sodium 136 mmol/L (137-145)
[2018-07-29 09:28] LABS: Appearance Urine UA CLEAR; Bilirubin Urine UA NEGATIVE (NEGATIVE); Color Urine UA YELLOW; Glucose Urine UA NEGATIVE (Negative); Ketones Urine UA NEGATIVE (NEGATIVE); Leukocyte Esterase Urine UA NEGATIVE (NEGATIVE); Nitrite Urine UA NEGATIVE (Negative); Occult Blood Urine UA NEGATIVE (Negative); Protein Urine UA NEGATIVE (Negative); Urobilinogen Urine UA 0.2 E.U./dL (0.2)
[2018-07-29 10:15] LABS: Culture Indicated Urine Cult Not Indicated; Urine Comments Microscopic Normal
== END ==
PROVIDERS: Family Provider Internal Medicine; PCP Internal Medicine; Visit Provider Orthopaedic Surgery Orthopaedic Surgery of the Spine
DX: N39.0 Urinary tract infection, site not specified (principal); Z01.818 Encounter for other preprocedural examination
CPT/HCPCS: 36415; 80048; 81001; 85027

== ENCOUNTER → 2018-07-29 | Outpatient (CLI) | payer MEDICARE, SELFPAY ==
[2018-04-20 12:00] VITALS: BMI 32.1
== END ==
PROVIDERS: PCP Internal Medicine; Visit Provider Orthopaedic Surgery Orthopaedic Surgery of the Spine
DX: N39.0 Urinary tract infection, site not specified (principal); Z01.818 Encounter for other preprocedural examination

== ENCOUNTER 2018-08-25 06:13 | Inpatient (IN) | payer MEDICARE, SELFPAY ==
[2018-04-20 12:00] VITALS: BMI 32.1
[2018-08-14 08:48] VITALS: BMI 31.5
[2018-08-25] VITALS (19 sets, daily range): BP systolic 82–123; BP diastolic 48–78; PULSE 80–108; RESP 8–20; TEMP 36.2–36.8; O2SAT 92–98; BMI 32.2
[2018-08-25] MEDS: LACTATED RINGERS 1,000 ML 42 ML IV ×3 (06:53→10:10)
[2018-08-25] MEDS: ALBUTEROL 2.5 MG/3 ML NEB (ADULT) INH (07:44)
--- NOTE | 2018-08-25 07:47 | PM.PREOP ---
Pre-operative Note Interval Note History & Physical reviewed/Exam performed by Physician: Yes Changes to H&P: No
[2018-08-25] MEDS: CEFAZOLIN 2 GM/100 ML FROZ.PIGGY IV ×2 (07:50→15:56)
--- NOTE | 2018-08-25 08:39 | SUR.OPER ---
Prone on spine table, head in foam head support, padded chest and pelvic supports, gel pad at knees, lower legs supported by pillows; nipples, genitalia and toes free of pressure, arms secured on foam padded arm boards at <90 degrees abduction. Tape over blanket at thigh secured to table.
[2018-08-25] MEDS: BUPIVACAINE LIPOSOME 266 MG/20 ML VIAL INJ (08:45)
[2018-08-25] MEDS: BUPIVACAINE 0.25% W/ EPI 50 ML VIAL 30 ML INJ (08:46)
[2018-08-25] MEDS: ACETAMINOPHEN IV 1,000 MG/100 ML VIAL 400 MG IV (09:03)
--- NOTE | 2018-08-25 11:15 | P.OP_ITS ---
Operative Date/Time/Diagnoses Date of procedure: 08/25/18 Time of procedure: 08:11 Pre-op diagnosis: 1. L4-5, L5-S1 spinal stenosis 2. L4-5, L5-S1 spondylosis with radiculopathy Post-op diagnosis: same Procedure & Clinicians Procedure: 1. L4-5, L5-S1 Postero-lateral and posterior interbody fusion 2. L4-5, L5-S1 interbody cage placement. 3. L4-5, L5-S1 decompressive laminectomy with bilateral facetecomies 4. L4-5, L5-S1 Posterior segmental instrumentation 5. Crozier of bone marrow from iliac crest 6. Utilization of microsurgical technique and operating microscope Same procedure as scheduled: Yes Indications: Patient has been having chronic back pain and worsening lumbar radiculopathy. Patient failed multiple conservative management with worsening pain weakness and numbness in her lower extremity. Patient has been having difficulty performing activity of daily living. After discussing risks benefits of treatment options, patient elected proceed with surgery. Surgeon: Charles Tapia Services Advisor: Juhi Grande Click Yes if Unassisted: No Anesthesia Type: General Operative Notes Closure Type: primary Specimen(s): none sent Prosthetic devices, grafts, tissues, transplants, or devices: Globus revolve screws, Rise cages Applied: catheter Estimated Blood Loss (mL): 100 Blood products transfused: none Procedure in detail: Patient was seen in the preoperative area. Risks and benefits of the surgery was discussed with the patient. Informed consent was obtained from the patient and placed in the chart. Surgical site was marked. Patient was taken to the operative room. General anesthesia was administered. Prophylactic antibiotic was given to the patient less than 30 min before the incision was made. Patient was placed into a prone position on the Timothy table. Patient's back was then prepped and draped in the sterile fashion. Time- out was performed at this time. Using AP and lateral C-arm imaging the interval between L4-S1 was identified and marked on patient's back. A 2 inch incision 2 in from midline was made on the left side first. The fascia was incised in line with skin incision. Globus MARS retractors was placed inside the incision and docked onto the L4 and L5 lamina. Using microsurgical technique and operating microscope, a L4 and L5 laminectomy and L4-5 L5-S1 facetectomy was performed using a Kerrison rongeur. During the process of decompression more than 75% of bilateral L4-5 L5-S1 facets were removed in order to decompress the spinal canal and the lateral recess. The L4- 5 L5-S1 level was grossly unstable after the decompression was completed and requiring the fusion procedure. The disc space at L4-5, L5-S1 was identified. And a total diskectomy was performed at L4-5, L5-S1 level. The endplates were decorticated using a rasp and shaver. The total diskectomy and decortication was performed at L4-5, L5-S1 level in order to to accomplish a L4-5, L5-S1 fusion. The local bone from the laminectomy and facetectomy was saved for local bone grafting. After the total diskectomy and decortication was completed, Globus viacell bone graft material was combined with local bone that was harvested earlier. At this time, a separate skin is incision was made over the iliac crest. A Jamshidi needle was inserted into the iliac crest through a separate skin incision. 5 cc of bone marrow aspiration was obtained through the separate skin incision using a Jamshidi needle from the iliac crest. The bone marrow aspiration was combined with local bone and the via cell bone grafting material. The bone grafting material was placed into the L4-5, L5-S1 interbody space along with two cages, one expandable cage at each level. The cages were expanded to their maximum height using the torque limiting screwdriver. At this time a mirror image incision was made on the right side. The fascia was incised in line with the skin incision. Globus MARS retractor was inserted and docked onto the L4-5, L5-S1 posterolateral gutter. Using the power drill, posterior-lateral decortication was performed at L4-5, L5-S1 level until bleeding cortical bone was identified. The remaining bone grafting material was placed into the L4-5 L5-S1 posterior lateral gutter he order to accomplish posterolateral fusion at the L4-5 L5-S1 levels. Using the double C-arm technique, pedicle screws were placed into the L4, L5, S1 pedicles bilaterally. This was done by placing the Jamshidi needle into the pedicles, then placing the guidewires over the Jamshidi needle, and finally placing the cannulated screws over the guidewires bilaterally. After the pedicle screws were placed, 2 titanium rods was locked into the heads of the pedicle screws using locking caps and torque limiting screwdriver. Total 6 pedicles screws were placed. After all the hardware was placed, and confirmed with AP and lateral C-arm imaging, the wound was then irrigated with sterile normal saline and packed with Ray-Tavia gauze for 3 min to accomplish hemostasis. After the gauze was removed the deep fascia was closed with #1 Vicryl suture. The subcutaneous layer was closed with 2-0 Vicryl. The skin was closed with skin terese. Patient tolerated the procedure well. There were no complications. Complications: none Condition: stable Disposition: PACU Plan for aftercare: Admit to inpatient hospital
--- NOTE | 2018-08-25 11:40 | DI.RAD.S_ITS ---
PROCEDURE: XR LUMBAR SPINE 2-3V INDICATIONS: L4-5, L5-S1 TLIF TECHNIQUE: 2 immediate postoperative views of the lumbar spine were acquired. COMPARISON: [facility], , L-SPINE 2-3 VIEWS, 05/03/2017, 11:17. FINDINGS: Bones: 5 [id number] vertebrae are present. There is normal bony alignment established by transverse pedicle screws and vertical fixation rods bilaterally spanning from L4-S1 with interbody disc prosthesis& at the 2 intervening disc levels. No vertebral body compression fractures. No suspicious bony lesions. Soft tissues: Overlying bowel gas pattern is normal. No suspicious soft tissue calcifications. IMPRESSION: Normal postoperative alignment. L4-S1 posterior fusion procedure. Gauge disc prosthesis positioning appears normal at L4-5 and L5-S1. Dictated by: Kory Juarez M.D. on 08/25/2018 at 10:56 Approved by: Kory Juarez M.D. on 08/25/2018 at 10:58
[2018-08-25] MEDS: HYDROMORPHONE 2 MG INJ 1 MG IV (12:07)
[2018-08-25] MEDS: HYDROMORPHONE 2 MG INJ 0.5 MG IV (12:17)
[2018-08-25] MEDS: LORazepam 2 MG/ML SYRINGE 0.25 MG IV (12:22)
--- NOTE | 2018-08-25 12:54 | CM.DANOTE ---
Discharge Planning/Care Management DCP: assessment: case received, EMR reviewed. Went to room to meet with pt for introduction of self. Pt has not yet arrived from PACU to floor but is expected sometime this afternoon. Pt is a 68 year old female who admitted early this morning for a planned spinal surgery: Dr Tapia. Payer: Brett and [employer]. PCP: Emperatriz Peters. Anticipate PT and OT will be seeing pt. P: will meet with pt likely tomorrow after Team Rounds as she will have done some initial work with therapy and will look into her d/c issues and options. It is noted that pt is a daily smoker. Per her pre-op assessment she states a history of agoraphobia and panic disorder. Will factor these issues into her d/c plan options. CM Discharge Assessment Start: 08/25/18 12:53 Freq: Status: Active Protocol: Document 08/25/18 12:53 ITV (Rec: 08/25/18 12:54 ITV [id number]) Discharge Planning Assessment Advance Directives? Yes Advance Directives on File Yes History Provided By Medical Record Prior Living Arrangements House Household Members spouse Review Status In Process Next Review Type Continued Stay Review Pre-Anesthesia Assessment Start: 08/14/18 08:48 Freq: Status: Active Protocol: Document 08/14/18 08:48 CAB (Rec: 08/14/18 09:12 CAB [id number]) Pre-Anesthesia Assessment Patient Also Known As (EM Rashid Patient Information Reviewed Via Phone Assessment Assessment Completed With Patient Diagnostic Results BMP/CMP CBC Primary Care Provider Emperatriz Peters Seen Specialist in Last 12 Months Yes Specialist Seen Orthopedist Primary Language Mongolian Cut Off Saw Set Up Operator Required No Height 160.02 cm Weight 80.739 kg Body Mass Index (BMI) 31.5 Hearing Ability Normal Visual Assist Glasses Dentition Type Teeth, Natural Present Barriers to Learning None Other Aids No Hx Anesthesia Reactions No Hx Family Anesthesia Reaction No Hx Malignant Hyperthermia No Hx Blood Transfusions No Anesthesia Review Requested No Stave Bolt Equalizer No alcohol intake current alcohol intake frequency holidays/special occasions only Smoking Status Current every day smoker Tobacco type cigarettes Smoking packs per day 0.5 Substance Use Type does not use Pain Present Pain Reported Musculoskeletal Symptoms Back Pain Difficulty Walking Joint Pain Limited Range of Motion History of Falling (Recent or History of No ) Patient is completely paralyzed or No completely immobile Prosthesis or Orthotic Device Cane Front Wheel Walker Mental Status Oriented to own ability Comment Balance issues Is patient on oxygen? No Does patient have MONTEZ/SOB No Hx Sleep Apnea No CPAP/BIPAP use not prescribed Currently Taking a Beta Mikayla No Can You Climb a Flight of Stairs Without Yes SOB Hx Chest Pain No Hx SOB No Hx Syncope or Dizziness No Anti-Coagulant Therapy No Has a In Flight Crew Member No Cardiac Testing No Hx Pacemaker/ICD No Pacemaker Rep Required? No Cardiac Clearance Received Not Applicable Diet Type At Home Regular dysphagia Yes Comment Recent r/t solids pressure on my esophagus, improving after neck surgery Bladder Pattern Incontinent, Stress Urinary Catheter Present No Hx Urinary Self Catheterization No Diabetes No Patient No Lactating No Hx Drug Resistant Organism No Presence of External or Internal Medical No Devices Have you traveled outside the [facility] in the last 30 days? Marital Status Lives With spouse Prior Living Arrangements House Number of Floors (Floors) Two Floors Number of Stairs To Enter/Railing? 2 stairs, no railing Support System Child/Children Spouse Does the Patient Have Assistance After Yes Surgery Patient Discharge Plan Description Return Home Comment Pt advised 2 night length of stay per surgeon's office Feels Safe in Current Environment Yes Been Physically Hurt or Threatened By a No Person in Current Environment Do you have thoughts of harming yourself None or others? Are you currently considering suicide? No Do you have a plan to hurt yourself or No Plan others? Comment Hx of Agoraphobia w/panic disorder Do You Have Any Spiritual Beliefs That No May Affect Your HC Choices? Do You Have Any Cultural Practices That No May Affect Your HC Choices? Spiritual Referral None Who Can We Speak to About Patient's Care Family, friends Identifying Code for Release of Patient Declines to issue Information Health Care Proxy/Next of Kin Sammy Nguyen () Health Care Proxy Emergency Contact Name Sammy Nguyen () Emergency Contact Advance Directives? Yes Advance Directives on File Yes Power of Terrazzo Worker Apprentice Yes Power of Terrazzo Worker Apprentice Name Sammy Nguyen () Power of Terrazzo Worker Apprentice PAC Instructions Durable medical equipment Medications to take/avoid Nasal antibiotic No ETOH/petroleum product on skin DOS NPO Pre-surgical wash Sturdy shoes/comfortable clothes Do not bring valuables and remove jewelry
--- NOTE | 2018-08-25 12:54 | SUR.PHASEI ---
1245 arouses intermittantly,, preparing to transfer. VSS.
--- NOTE | 2018-08-25 13:17 | SUR.PHASEI ---
1255 to room 221, bed down and locked, call light within reach, SCDs on, O2 at 2LNP; Spouse in room. Drowsy, oriented, facial grimace with pain, moaned when went over bumps in and out of elevator. Back dressing remains CDI, Tolerated PO well, patient taught about log rolling in the PACU. Resp unlabored, skin warm and dry.
[2018-08-25] MEDS: SODIUM CHLORIDE 0.9% 1,000 ML 100 ML IV (14:23)
--- NOTE | 2018-08-25 15:09 | PT.IPTN ---
Current Diagnoses Spondylolisthesis, lumbosacral region (08/25/18) Other spondylosis with radiculopathy, lumbar region (08/25/18) Spinal stenosis, lumbar region without neurogenic claudication (08/25/18) Surgery Performed Operation Date: 08/25/18 07:45 Actual Procedures p L4-5,L5-S1 TLIF w/Posterior Instrumentation - Charles Tapia MD PHYSICAL THERAPY: Spoke with her nurse who reports pt is still very drowsy this afternoon. She is not ready to participate in physical therapy. Will plan to see her for evaluation tomorrow.
[2018-08-25] MEDS: OXYCODONE IR 10 MG TABLET PO ×2 (15:56→21:09)
[2018-08-25] MEDS: ACETAMINOPHEN 325 MG TABLET 650 MG PO (16:45)
[2018-08-25] MEDS: hydrOXYzine pamoate 25 MG CAPSULE PO (16:46)
[2018-08-25] MEDS: SENNOSIDES 8.6 MG TABLET 17.2 MG PO (21:09)
[2018-08-25] MEDS: DOCUSATE 100 MG CAPSULE PO (21:09)
[2018-08-26] VITALS (9 sets, daily range): BP systolic 111–138; BP diastolic 54–74; PULSE 82–98; RESP 16–18; TEMP 36.8–37.6; O2SAT 92–97
[2018-08-26] MEDS: CEFAZOLIN 2 GM/100 ML FROZ.PIGGY IV (00:22)
[2018-08-26] MEDS: OXYCODONE IR 10 MG TABLET PO ×6 (00:29→22:42)
[2018-08-26] MEDS: SODIUM CHLORIDE 0.9% 1,000 ML 100 ML IV (00:31)
[2018-08-26 05:47] LABS: Hematocrit 37.5 % (36-46); Hemoglobin 11.9 g/dL (12.0-16.0)
[2018-08-26] MEDS: LEVOTHYROXINE 50 MCG TABLET PO (06:26)
[2018-08-26] MEDS: DULOXETINE 30 MG CAPSULE 60 MG PO (07:52)
[2018-08-26] MEDS: ACETAMINOPHEN 325 MG TABLET 650 MG PO ×2 (07:53→23:40)
[2018-08-26] MEDS: DOCUSATE 100 MG CAPSULE PO ×2 (07:53→19:48)
--- NOTE | 2018-08-26 08:03 | P.PN_ITS ---
Subjective Date Patient Seen: 08/26/18 Interval history: Patient is seen bedside status post L4-5,L5-S1 TLIF postop day 1. Patient is doing well, she does have some pain along her low back but denies any numbness tingling into the lower extremities. Denies any chest pain shortness of breath. Has not been up with therapy. Exam Vital Signs (past 8 hours): - 08/26/18 06:00 Temperature 98.6 F Pulse Rate 83 Respiratory Rate 16 Blood Pressure 117/67 Pulse Oximetry 94 Oxygen Delivery Method Room Air Oxygen Flow Rate 1 Narrative Exam Narrative: Well-developed, well-nourished, no acute distress. Alert and oriented to person, place, and time. Dressing on lumbar spine is clean, dry, and intact with no signs of drainage. Minimal erythema and generalized swelling around the surgical site. Neurovascularly intact in bilateral lower extremities with soft and compressible calves. Range of motion intact bilateral lower extr emities. Objective Labs Result Diagrams: 08/26/18 05:18 Labs: Laboratory Results - last 24 hr 08/26/18 05:18 Hgb 11.9 L Hct 37.5 Assessment & Plan Post-op Postoperative Procedures Operation Date: 08/25/18 07:45 Actual Procedures Side Surgeon p L4-5,L5-S1 TLIF w/Posterior Instrumentation Charles Tapia MD 1. POD #1 s/p above procedure-physical therapy, pain control. Dispo-possibly tomorrow depending on pain control and how well patient moves with PT. Quality VTE Deep Vein Thrombosis/Pulmonary Embolism Present on Admission: No
--- NOTE | 2018-08-26 08:09 | PC.NURSE ---
Am shift Pt is A/o x4, reports pain is subsiding after dosing of Oxycodone from offgoing RN. 11/13. RA mid 's dim to bases, Pt education for I.S. and reducing post op complications with activity as tolerated. No nausea, APAP added to AM meds. Thien patent Updated POC for mobilizing today and pain control.
--- NOTE | 2018-08-26 10:36 | PT.IIE ---
Current Diagnoses Spondylolisthesis, lumbosacral region (08/25/18) Other spondylosis with radiculopathy, lumbar region (08/25/18) Spinal stenosis, lumbar region without neurogenic claudication (08/25/18) Surgery Performed Operation Date: 08/25/18 07:45 Actual Procedures p L4-5,L5-S1 TLIF w/Posterior Instrumentation - Charles Tapia MD Surgical History (Last Updated 08/14/18 @ 08:48 by Mare Dietz RN) Hx of sinus surgery (Acute) S/P cervical spinal fusion (Acute 04/20/18) Status post trigger finger release (Acute) Status post colonoscopy Status post colonoscopy Status post hysterectomy Medical History (Last Updated 08/14/18 @ 08:58 by Mare Dietz RN) Osteoarthritis (Acute) Chronic constipation (Acute) Chronic cough (Acute) Chronic low back pain (Acute) History of rectocele (Acute 03/01/16) Recurrent sinusitis (Acute) DENNIS (stress urinary incontinence, female) (Acute) Physical Therapy Inpatient Evaluation/Re-Eval M1 PT/OT-IP Prior Functional Status Start: 08/25/18 15:09 Freq: NEEDED Status: Active Protocol: Document 08/26/18 11:32 PJM (Rec: 08/26/18 16:48 PJM [id number]) Medical Review Prior Functional Status Medical History Reviewed Yes Communication WNL Mobility and Gait pt using cane for mobility in house Activities of Daily Living and IADL's pt independent with all self care; they normally share porcelain technician and cooking; does all shopping and driving Social History Household Members spouse Living Arrangements House Number of Floors (Floors) Two Floors Number of Stairs To Enter/Railing? 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 d/ c M2 PT-IP Current Condition Start: 08/25/18 15:09 Freq: NEEDED Status: Active Protocol: Document 08/26/18 10:36 DLM (Rec: 08/26/18 17:45 DLM [email or web address]) Physical Therapy Current Condition Current Condition Evaluation Date 08/26/18 Treatment Diagnosis L4-S1 TLIF, impaired gait and mobility Onset Date 08/25/18 Precautions Lumbar Precautions Log Roll No Twisting Limit Bending Lifting Restriction of 10 lbs Gait Belt above Incisional Area Weight Bearing Status Weight Bearing Status Weight Bear as Tolerated M3 PT-IP Subjective Start: 08/25/18 15:09 Freq: NEEDED Status: Active Protocol: Document 08/26/18 10:36 DLM (Rec: 08/26/18 17:45 DLM [email or web address]) Subjective Physical Therapy Visit Type Type Initial Evaluation Visit Start Time 09:55 Visit Stop Time 10:36 Total Visit Minutes 41 Number of COMPLIANCE ENGINEER PRODUCTS Visits 0 Physical Therapy Visit Comments Patient Comments gets sharp pain in left buttock area with some movements, new since surgery Patient Goals to go home Therapy Pain Assessment Pain When Pain Assessed After Treatment Pain Present Pain Present Pain Reported Location Lower Back Intensity 5 Scale Used Numeric (1 - 10) Description Aching Sharp Pain Behaviors Wincing Pain Management Techniques Re-positioning M4 PT-IP Mobility and Gait Start: 08/25/18 15:09 Freq: NEEDED Status: Active Protocol: Document 08/26/18 10:36 DLM (Rec: 08/26/18 17:45 DLM [email or web address]) PT-Bed Mobility Assessment Rolling Type of Rolling Log Rolling Roll to Left Level of Assist Standby Assistance Supine to Sit Supine to Sit Minimal Assistance Sit to Supine Sit to Supine Minimal Assistance Scooting Scooting to Edge of Bed Standby Assistance PT-Transfer Assessment Sit to and From Stand Sit to and from Stand Contact Guard Assistance Use of Upper Extremities Equipment Transfer Assistive Device Gait Belt Front Wheeled Walker Transfers Transfer Destination Chair Transfer Technique Stand Step Pivot Transfer Ability Level of Assist Contact Guard Assistance Use of Upper Extremities Comments Mobility Comments up to recliner with Spouse visiting Gait Assessment Gait Gait Assistance Required: Contact Guard Assist Distance (Feet) 10 Assistive Devices Assistive Device Gait Belt Front Wheeled Walker Gait Deviations General Gait Pattern Decreased Stride Length Factors Limiting Gait Function Factors Limiting Gait Function Decreased Activity Tolerance Pain Comments Gait Comments she reports feeling better as she ambulated PT-Balance Assessment Sitting Balance and Reactions Static Sitting Balance Ability Good Dynamic Sitting Balance Ability Good Standing Balance and Reactions Static Standing Balance Ability Good Dynamic Standing Balance Ability Fair Device Used FWW M5 PT-IP Objective Assessments Start: 08/25/18 15:09 Freq: NEEDED Status: Active Protocol: Document 08/26/18 10:36 DLM (Rec: 08/26/18 17:45 DLM [email or web address]) Orientation Orientation/Cognition Level of Alertness Alert Orientation Name Age Birthday Month Date Year Day of Week Place Situation Language Function Ability No Deficits Noted Safety Awareness Understands Safety Issues Memory Description No Deficits Noted Gross Range of Motion Upper Extremity ROM Assessment Within Functional Limits Lower Extremity ROM Assessment Within Functional Limits Strength Upper Extremity Strength Assessment Within Functional Limits Lower Extremity Strength Assessment Within Functional Limits Comments Strength Comments LE functional strength limited by back pain Coordination Assessment Gross Coordination Gross Coordination WNL Sensation Assessment Sensation Gross Sensation WNL Muscle Tone Muscle Tone WNL Yes M6 PT-IP Treatment Start: 08/25/18 15:09 Freq: NEEDED Status: Active Protocol: Document 08/26/18 10:36 DLM (Rec: 08/26/18 17:45 DLM [email or web address]) Physical Therapy Treatment Exercises Exercises Ankle Pumps Education Education Provided Precautions Safety M7 PT-IP Assessment and Plan Start: 08/25/18 15:09 Freq: NEEDED Status: Active Protocol: Document 08/26/18 10:36 DLM (Rec: 08/26/18 17:45 DLM [email or web address]) PT Summary Assessment and Plan Potential Rehabilitation Potential Excellent Status of Condition at Evaluation Evolving Summary Impairments Pain ROM Strength Balance Bed Mobility Transfers Gait Activity Tolerance Assessment Summary Patient is alert and motivated to participate in physical therapy. She tolerated short distances of gait in her room with fWW and up to recliner. Her Spouse is present for treatment and participated in education. Will plan for discharge home with her Spouse to assist as she progresses. Goals Bed Mobility Goal Independent Transfer Goal Independent Front Wheeled Walker Gait Goal Independent Front Wheel Walker Gait Distance 150 feet Other Goals Up and down 2 steps with min assist Days to Meet Goals 3 Frequency of Treatment Frequency Of Treatment Twice a Day Treatment Plan Physical Therapy Treatment Plan Bed Mobility Training Transfer Training Gait Training Therapeutic Exercise Balance Retraining Post Op Education Discharge Planning Hot or Cold Pack Recommendations To Nursing Amount of Assist Needed 1 Person Assist Discharge Recommendations PT Discharge Recommendations Home with Assistance
--- NOTE | 2018-08-26 11:32 | OT.IP.EVAL ---
Current Diagnoses Spondylolisthesis, lumbosacral region (08/25/18) Other spondylosis with radiculopathy, lumbar region (08/25/18) Spinal stenosis, lumbar region without neurogenic claudication (08/25/18) Surgery Performed Operation Date: 08/25/18 07:45 Actual Procedures p L4-5,L5-S1 TLIF w/Posterior Instrumentation - Charles Tapia MD Past Medical History (Last Updated 08/14/18 @ 08:58 by Mare Dietz RN) Osteoarthritis (Acute) Chronic constipation (Acute) Chronic cough (Acute) Chronic low back pain (Acute) History of rectocele (Acute 03/01/16) Recurrent sinusitis (Acute) DENNIS (stress urinary incontinence, female) (Acute) Surgical History (Last Updated 08/14/18 @ 08:48 by Mare Dietz RN) Hx of sinus surgery (Acute) S/P cervical spinal fusion (Acute 04/20/18) Status post trigger finger release (Acute) Status post colonoscopy Status post colonoscopy Status post hysterectomy Occupational Therapy Inpatient Evaluation/Re-Eval M1 PT/OT-IP Prior Functional Status Start: 08/25/18 15:09 Freq: NEEDED Status: Active Protocol: Document 08/26/18 11:32 PJM (Rec: 08/26/18 16:48 PJM [email or web address]) Medical Review Prior Functional Status Medical History Reviewed Yes Communication WNL Mobility and Gait pt using cane for mobility in house Activities of Daily Living and IADL's pt independent with all self care; 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 pt stays on main level with 2 shallow steps and rail to enter Home Environment High Toilet Walk in Shower Home Equipment Four Wheel Walker Straight Cane Shower Seat with Backrest Hand Held Shower Long Handled Sponge Long Handled Shoe Horn Employment Status Retired Additional Social History Comment supportive, capable can provide 24 hr assist at d/ c M2 OT-IP Current Condition Start: 08/26/18 16:32 Freq: Status: Active Protocol: Document 08/26/18 11:32 PJM (Rec: 08/26/18 16:48 PJM [email or web address]) Occupational Therapy Current Condition Current Condition Evaluation Date 08/26/18 Treatment Diagnosis decreased self care, mobility s/p L4-S1 TLIF Diagnosis Onset Date 08/25/18 Post Operative Precautions Lumbar Precautions Log Roll No Twisting Limit Bending Lifting Restriction of 10 lbs Gait Belt above Incisional Area M3 OT- IP Subjective and Pain Start: 08/26/18 16:32 Freq: Status: Active Protocol: Document 08/26/18 11:32 PJM (Rec: 08/26/18 16:48 PJ [id number]) OT- Subjective Occupational Therapy Visit Type Type Initial Evaluation Visit Start Time 10:44 Visit Stop Time 11:32 Total Visit Minutes 48 Occupational Therapy Visit Comments Patient/Caregiver Goals to have less back pain, to go home OT Pain Assessment Pain When Pain Assessed After Treatment Pain Present Pain Present Pain Reported Location Lower Back Intensity 7 Scale Used Numeric (1 - 10) Description Aching Acute Pain Behaviors Facial Grimacing Guarding Management Techniques Distraction Timing of Activity with Medications M4 OT- IP ADL's Start: 08/26/18 16:32 Freq: Status: Active Protocol: Document 08/26/18 11:32 PJM (Rec: 08/26/18 16:48 PJ [id number]) OT LIL-Vnbl-Gxazifx General Evaluation Self-Feeding Ability Independent OT ADL-Grooming General Evaluation Grooming Ability Standby Assistance Areas Needing Assistance Combing/Brushing Hair Face Washing Comments OT Grooming Comments after set up seated in bed or chair OT ADL-Oral Care General Eval Oral Care Ability Standby Assistance Areas of Assistance Brushing Teeth Devices Oral Care Devices Toothbrush Comments Oral Care Comments after set up seated in bed or chair OT ADL-Dressing General Eval Upper Body Dressing Ability Standby Assistance Lower Body Dressing Ability Maximum Assistance Assistive Devices Dressing Assistive Devices Long Handled Shoe Horn Bottom Filler Sock Aid Comments OT Dressing Comments Began education re: lower body dressing with supervisor parachute manufacturing, sock aid, long shoe horn. Pt will order supervisor parachute manufacturing and sock aid on line. She has long shoe horn. can also assist PRN. OT ADL-Toileting Comments OT Toileting Comments pt declined this session; provided education re: toilet paper aids and resources OT ADL-Bathing Comments OT Bathing Comments to be assessed as activity level improves M5 OT- IP IADL's Start: 08/26/18 16:32 Freq: Status: Active Protocol: Document 08/26/18 11:32 PJM (Rec: 08/26/18 16:48 [facility] [email or web address]) OT-Instrumental Activities of Daily Living Deficits IADL Deficits Identified Deficits Home Safety Awareness Awareness of Need for Assistance at Home Good Awareness Ability to Problem Solve Emergency Able to Problem Solve Situations Medication Management Medication Management No Deficits Identified Money Management Money Management No Deficits Identified Meal Preparation Meal Preparation Caregiver Provides Assist Meal Preparation Comments to assist until pt able Tool Mechanic Tool Mechanic Caregiver Provides Assist Tool Mechanic Comments to assist until pt able Driving Driving Caregiver Provides Assist Driving Comments pt prefers not to drive M6 OT- IP Functional Cognition Start: 08/26/18 16:32 Freq: Status: Active Protocol: Document 08/26/18 11:32 PJM (Rec: 08/26/18 16:48 [facility] [email or web address]) Cognitive Factors Limiting Selfcare Function Cognitive Ability Level of Alertness Alert Patient Orientation Name Age Birthday Month Date Year Day of Week Place Situation Attention Span Ability Capable of Focused Attention Capable of Sustained Attention Ability to Follow Commands Able to Follow One Step Commands Memory Description No Deficits Noted Safety Awareness No Deficits Noted Problem Solving Ability No deficits Noted Cognitive Comments Cognitive Assessment Comments Pt asking appropriate questions about adapted ADL techniques and verbalizes 3/3 spine precautions. OT- Vision and Hearing OT- Hearing Assessment OT- Hearing Assessment WFL OT- Vision Assessment Visual Acuity WFL Glasses All The Time M7 OT- IP Mobility and Balance Start: 08/26/18 16:32 Freq: Status: Active Protocol: Document 08/26/18 11:32 PJM (Rec: 08/26/18 16:48 [facility] [email or web address]) OT-Transfer Assessment Comments Mobility Comments see P.T. notes, pt just back to bed and declines OOB this session OT- Gait Assessment Comments Gait Ability Comments see P.T. notes, pt just back to bed and declines OOB this session OT- Balance Assessment Comments Other Balance Tests/Deviations/Treatment see P.T. notes : M8 OT- IP Objective Assessments Start: 08/26/18 16:32 Freq: Status: Active Protocol: Document 08/26/18 11:32 PJM (Rec: 08/26/18 16:48 [facility] [email or web address]) OT Gross Range of Motion Upper Extremity Range of Motion Assessment Within Functional Limits OT Strength Upper Extremity Strength Assessment Within Functional Limits Hand Electric Engine Mechanic Strength Hand Dominance Right OT- Coordination Assessment Comments Coordination Comments BUE WFL OT-Muscle Tone Assessment Muscle Tone WNL Yes OT Sensation Assessment Comments Summary Comments Pt denies deficits Edema Edema Absent M9 OT- IP Assessment and Plan Start: 08/26/18 16:32 Freq: Status: Active Protocol: Document 08/26/18 11:32 PJM (Rec: 08/26/18 16:48 PJM [email or web address]) OT Summary Assessment and Plan Potential Rehabilitation Potential Good Analytic Complexity at Evaluation Low Summary OT Impairments Pain Functional Mobility Grooming Dressing Toileting Bathing Toilet Transfers Shower Transfers Assessment Summary Low complexity OT assessment completed with emphasis on self care skills within lumbar spine precautions after recent L4-S1 fusion. Pt currently has performance deficits in all functional mobility/transfers, standing grooming, lower body dressing, bathing and toileting due to pain level. Began education with pt/ re: adapted self care techniques, equipt options for lower body dressing, toilet paper aids, bathroom safety equipt options and car transfers. They verbalize understanding of all education, Anticipate pt will continue to progress and be able to d/c home with 24 hour assist from . Goals Grooming Goal Independent Dressing Goal Standby Assistance Long Handled Shoe Horn Bottom Filler Sock Aid Toileting Goal Standby Assistance Toilet Paper Aid Bathing Goal Standby Assistance Toilet Transfer Goal Standby Assistance Shower Transfer Goal Standby Assistance Patient/Caregiver Education Goal Demonstrate Post-Op Precautions Demonstrate Energy Conservation and Pacing Caregiver Independent Assisting Patient OT-Other Goals Grooming to be done standing at sink with good body mechanics and safety awareness . Days to Meet Goals 2 Frequency of Treatment Frequency Of Treatment Once a Day Treatment Plan OT Treatment Plan ADL Training Functional Mobility Patient/Family Education Discharge Planning Discharge Recommendations OT Discharge Recommendations Home with 27/12 Assist Home Equipment Needs pt to order supervisor parachute manufacturing, sock aid, toilet paper aid
[2018-08-26] MEDS: ESTRADIOL 0.1 MG TOP (11:50)
--- NOTE | 2018-08-26 16:13 | PT.IPTN ---
Current Diagnoses Spondylolisthesis, lumbosacral region (08/25/18) Other spondylosis with radiculopathy, lumbar region (08/25/18) Spinal stenosis, lumbar region without neurogenic claudication (08/25/18) Surgery Performed Operation Date: 08/25/18 07:45 Actual Procedures p L4-5,L5-S1 TLIF w/Posterior Instrumentation - Charles Tapia MD Physical Therapy Treatment Note M2 PT-IP Current Condition Start: 08/25/18 15:09 Freq: NEEDED Status: Active Protocol: Document 08/26/18 10:36 DLM (Rec: 08/26/18 17:45 DLM [email or web address]) Physical Therapy Current Condition Current Condition Evaluation Date 08/26/18 Treatment Diagnosis L4-S1 TLIF, impaired gait and mobility Onset Date 08/25/18 Precautions Lumbar Precautions Log Roll No Twisting Limit Bending Lifting Restriction of 10 lbs Gait Belt above Incisional Area Weight Bearing Status Weight Bearing Status Weight Bear as Tolerated M3 PT-IP Subjective Start: 08/25/18 15:09 Freq: NEEDED Status: Active Protocol: Document 08/26/18 16:13 DLM (Rec: 08/26/18 17:52 DLM [email or web address]) Subjective Physical Therapy Visit Type Type Treatment Note Visit Start Time 15:45 Visit Stop Time 16:13 Total Visit Minutes 28 Number of LONGITUDINAL FLOAT OPERATOR Visits 0 Physical Therapy Visit Comments Patient Comments still getting some sharp pain in left buttock area when up moving Patient Goals to go home Therapy Pain Assessment Pain When Pain Assessed After Treatment Pain Present Pain Present Pain Reported Location Lower Back Intensity 5 Scale Used Numeric (1 - 10) Description Aching Sharp Pain Behaviors Wincing Pain Management Techniques Re-positioning M4 PT-IP Mobility and Gait Start: 08/25/18 15:09 Freq: NEEDED Status: Active Protocol: Document 08/26/18 16:13 DLM (Rec: 08/26/18 17:52 DLM [email or web address]) PT-Bed Mobility Assessment Rolling Type of Rolling Log Rolling Roll to Left Level of Assist Standby Assistance Supine to Sit Supine to Sit Standby Assistance Sit to Supine Sit to Supine Standby Assistance Scooting Scooting to Edge of Bed Standby Assistance PT-Transfer Assessment Sit to and From Stand Sit to and from Stand Contact Guard Assistance Use of Upper Extremities Equipment Transfer Assistive Device Gait Belt Front Wheeled Walker Transfers Transfer Destination Bed Transfer Technique Stand Step Pivot Transfer Ability Level of Assist Contact Guard Assistance Use of Upper Extremities Gait Assessment Gait Gait Assistance Required: Contact Guard Assist Distance (Feet) 60 Assistive Devices Assistive Device Gait Belt Front Wheeled Walker Gait Deviations General Gait Pattern Decreased Stride Length Factors Limiting Gait Function Factors Limiting Gait Function Decreased Activity Tolerance Pain Comments Gait Comments she reports feeling better as she ambulated PT-Balance Assessment Sitting Balance and Reactions Static Sitting Balance Ability Good Dynamic Sitting Balance Ability Good Standing Balance and Reactions Static Standing Balance Ability Good Dynamic Standing Balance Ability Fair Device Used FWW M5 PT-IP Objective Assessments Start: 08/25/18 15:09 Freq: NEEDED Status: Active Protocol: Document 08/26/18 10:36 DLM (Rec: 08/26/18 17:45 DLM [email or web address]) Orientation Orientation/Cognition Level of Alertness Alert Orientation Name Age Birthday Month Date Year Day of Week Place Situation Language Function Ability No Deficits Noted Safety Awareness Understands Safety Issues Memory Description No Deficits Noted Gross Range of Motion Upper Extremity ROM Assessment Within Functional Limits Lower Extremity ROM Assessment Within Functional Limits Strength Upper Extremity Strength Assessment Within Functional Limits Lower Extremity Strength Assessment Within Functional Limits Comments Strength Comments LE functional strength limited by back pain Coordination Assessment Gross Coordination Gross Coordination WNL Sensation Assessment Sensation Gross Sensation WNL Muscle Tone Muscle Tone WNL Yes M6 PT-IP Treatment Start: 08/25/18 15:09 Freq: NEEDED Status: Active Protocol: Document 08/26/18 16:13 DLM (Rec: 08/26/18 17:52 DLM [email or web address]) Physical Therapy Treatment Exercises Exercises Ankle Pumps Education Education Provided Precautions Safety Other Treatments Other Treatment Performed Spouse not present this visit M7 PT-IP Assessment and Plan Start: 08/25/18 15:09 Freq: NEEDED Status: Active Protocol: Document 08/26/18 16:13 DLM (Rec: 08/26/18 17:52 DLM [email or web address]) PT Summary Assessment and Plan Summary Impairments Pain ROM Strength Balance Bed Mobility Transfers Gait Activity Tolerance Progress Towards Goals Progressing Toward Goals Assessment Summary Rosi tolerated increased distance of gait well this afternoon with FWW and CG assist. She was able to use the toilet to urinate afte ambulating in the [place]. She was fatigued after activity and returned to bed to rest. Continue to plan for discharge home with her Spouse to assist her. Goals Bed Mobility Goal Independent Transfer Goal Independent Front Wheeled Walker Gait Goal Independent Front Wheel Walker Gait Distance 150 feet Other Goals Up and down 2 steps with min assist Days to Meet Goals 3 Frequency of Treatment Frequency Of Treatment Twice a Day Treatment Plan Physical Therapy Treatment Plan Bed Mobility Training Transfer Training Gait Training Therapeutic Exercise Balance Retraining Post Op Education Discharge Planning Hot or Cold Pack Recommendations To Nursing Amount of Assist Needed 1 Person Assist Discharge Recommendations PT Discharge Recommendations Home with Assistance
[2018-08-26] MEDS: SENNOSIDES 8.6 MG TABLET 17.2 MG PO (19:48)
[2018-08-27 01:06] VITALS: TEMP 37.7
[2018-08-27 05:46] VITALS: BP 136/70; PULSE 101; RESP 16; TEMP 37.2; O2SAT 95
[2018-08-27] MEDS: LEVOTHYROXINE 50 MCG TABLET PO (05:56)
[2018-08-27 07:40] VITALS: BP 161/78; PULSE 95; RESP 18; TEMP 36.9; O2SAT 94
[2018-08-27] MEDS: DULOXETINE 30 MG CAPSULE 60 MG PO (08:25)
[2018-08-27] MEDS: OXYCODONE IR 10 MG TABLET PO ×2 (08:25→12:06)
[2018-08-27] MEDS: DOCUSATE 100 MG CAPSULE PO (08:26)
--- NOTE | 2018-08-27 10:00 | PT.IPTN ---
Current Diagnoses Spondylolisthesis, lumbosacral region (08/25/18) Other spondylosis with radiculopathy, lumbar region (08/25/18) Spinal stenosis, lumbar region without neurogenic claudication (08/25/18) Surgery Performed Operation Date: 08/25/18 07:45 Actual Procedures p L4-5,L5-S1 TLIF w/Posterior Instrumentation - Charles Tapia MD Physical Therapy Treatment Note M2 PT-IP Current Condition Start: 08/25/18 15:09 Freq: NEEDED Status: Active Protocol: Document 08/26/18 10:36 DLM (Rec: 08/26/18 17:45 DLM [id number]) Physical Therapy Current Condition Current Condition Evaluation Date 08/26/18 Treatment Diagnosis L4-S1 TLIF, impaired gait and mobility Onset Date 08/25/18 Precautions Lumbar Precautions Log Roll No Twisting Limit Bending Lifting Restriction of 10 lbs Gait Belt above Incisional Area Weight Bearing Status Weight Bearing Status Weight Bear as Tolerated M3 PT-IP Subjective Start: 08/25/18 15:09 Freq: NEEDED Status: Active Protocol: Document 08/27/18 10:00 DLM (Rec: 08/27/18 10:31 DLM [id number]) Subjective Physical Therapy Visit Type Type Treatment Note Visit Start Time 09:36 Visit Stop Time 10:00 Total Visit Minutes 24 Number of BUSINESS BROKER Visits 0 Physical Therapy Visit Comments Patient Comments She feels ready to go home today, more aching in her legs today after walking, describes not having much energy in general today Therapy Pain Assessment Pain When Pain Assessed During Mobility Pain Present Pain Present Pain Reported Location Lower Back Intensity 5 Scale Used Numeric (1 - 10) Description Aching Pain Behaviors Guarding Pain Management Techniques Re-positioning M4 PT-IP Mobility and Gait Start: 08/25/18 15:09 Freq: NEEDED Status: Active Protocol: Document 08/27/18 10:00 DLM (Rec: 08/27/18 10:31 DL [id number]) PT-Bed Mobility Assessment Rolling Type of Rolling Log Rolling Roll to Left Level of Assist Independent Supine to Sit Supine to Sit Standby Assistance Sit to Supine Sit to Supine Standby Assistance Scooting Scooting to Edge of Bed Standby Assistance PT-Transfer Assessment Sit to and From Stand Sit to and from Stand Standby Assistance Use of Upper Extremities Equipment Transfer Assistive Device Gait Belt Front Wheeled Walker Transfers Transfer Destination Bed Transfer Technique Stand Step Pivot Transfer Ability Level of Assist Standby Assistance Gait Assessment Gait Gait Assistance Required: Standby Assistance Distance (Feet) 160 Assistive Devices Assistive Device Gait Belt Front Wheeled Walker Factors Limiting Gait Function Factors Limiting Gait Function Decreased Activity Tolerance Decreased Strength Pain PT-Balance Assessment Sitting Balance and Reactions Static Sitting Balance Ability Good Dynamic Sitting Balance Ability Good Standing Balance and Reactions Static Standing Balance Ability Good Dynamic Standing Balance Ability Good Device Used FWW M5 PT-IP Objective Assessments Start: 08/25/18 15:09 Freq: NEEDED Status: Active Protocol: Document 08/26/18 10:36 DLM (Rec: 08/26/18 17:45 DLM [id number]) Orientation Orientation/Cognition Level of Alertness Alert Orientation Name Age Birthday Month Date Year Day of Week Place Situation Language Function Ability No Deficits Noted Safety Awareness Understands Safety Issues Memory Description No Deficits Noted Gross Range of Motion Upper Extremity ROM Assessment Within Functional Limits Lower Extremity ROM Assessment Within Functional Limits Strength Upper Extremity Strength Assessment Within Functional Limits Lower Extremity Strength Assessment Within Functional Limits Comments Strength Comments LE functional strength limited by back pain Coordination Assessment Gross Coordination Gross Coordination WNL Sensation Assessment Sensation Gross Sensation WNL Muscle Tone Muscle Tone WNL Yes M6 PT-IP Treatment Start: 08/25/18 15:09 Freq: NEEDED Status: Active Protocol: Document 08/27/18 10:00 DLM (Rec: 08/27/18 10:31 DLM [id number]) Physical Therapy Treatment Exercises Exercises Ankle Pumps Education Education Provided Precautions Safety Other Treatments Other Treatment Performed her Spouse is present this visit M7 PT-IP Assessment and Plan Start: 08/25/18 15:09 Freq: NEEDED Status: Active Protocol: Document 08/27/18 10:00 DLM (Rec: 08/27/18 10:31 DL [id number]) PT Summary Assessment and Plan Summary Impairments Pain ROM Strength Balance Bed Mobility Transfers Gait Activity Tolerance Progress Towards Goals Progressing Toward Goals Safe For Discharge Assessment Summary She is progressing well this visit with increased distance of gait. She is better able to manage her pain during bed mobility when she goes slower and one step at a time. Her Spouse is present and supportive. Pt has mild tingling in left thigh area today when up moving. Pt appears to be safe to discharge home with her Spouse to assist her. Goals Bed Mobility Goal Independent Transfer Goal Independent Front Wheeled Walker Gait Goal Independent Front Wheel Walker Gait Distance 150 feet Other Goals Up and down 2 steps with min assist Days to Meet Goals 3 Frequency of Treatment Frequency Of Treatment Twice a Day Treatment Plan Physical Therapy Treatment Plan Bed Mobility Training Transfer Training Gait Training Therapeutic Exercise Discharge Planning Hot or Cold Pack Recommendations To Nursing Amount of Assist Needed 1 Person Assist Discharge Recommendations PT Discharge Recommendations Home with Assistance
--- NOTE | 2018-08-27 11:30 | PM.PNPO.1 ---
Subjective Date Patient Seen: 08/27/18 Time Patient Seen: 11:30 Interval history: patient is status post surgery to the lumbar spine. Patient is doing very well and is ready to go home. Exam Vital Signs (past 8 hours): - 08/27/18 05:46 08/27/18 07:40 Temperature 98.9 F 98.5 F Pulse Rate 101 H 95 H Respiratory Rate 16 18 Blood Pressure 136/70 161/78 H Pulse Oximetry 95 94 Fraction of Inspired Oxygen 21 Oxygen Delivery Method Room Air Oxygen Flow Rate 0 Narrative Exam Narrative: On physical exam, patient is alert and ordered x3. No apparent distress. Positive dorsiflexion and plantar flexion of the toes and ankle. 5/5 strength in dorsiflexion and plantar flexion. Palpable pedal pulses. Brisk cap refill. Nontender to palpation over the posterior calves bilaterally. Dressings intact, clean and dry. Objective Labs Result Diagrams: 08/26/18 05:18 Assessment & Plan Post-op Postoperative Procedures Operation Date: 08/25/18 07:45 Actual Procedures Side Surgeon p L4-5,L5-S1 TLIF w/Posterior Instrumentation Charles Tapia MD Postoperative day: 2 Postoperative status: doing well Postoperative plan: see orders and discharge Postoperative plan narrative: patient doing well status post lumbar surgery. Patient is cleared by Physical therapy and will be discharged home today. Time Spent With Patient less than 15 minutes Quality VTE Deep Vein Thrombosis/Pulmonary Embolism Present on Admission: No
--- NOTE | 2018-08-27 12:14 | CM.DPC ---
DCP: Dr. Anaya was here and has ok'd pt for d/c today. EMR reviewed including today's PT notes and then checked in with pt and her . Pt is up in room, preparing to go home. Admits to some pain but says she feels comfortable with the d/c today. GOKUL#2 presented and re-signed by pt. Home today: ortho followup
--- NOTE | 2018-08-27 12:33 | PC.NURSE ---
Day shift: Pt left unit in WC with JASWANT Fernandes at approx 1230 tp private car that spouse will drive them home in. Paperwork signed and all questions answered. Pt has all personal belongings as well as MD scrips. Medicated for pain just prior to d/c.
== END 2018-08-27 12:35 | disposition home or self-care (01) | DRG 455 ==
PROVIDERS: Admitting Provider Orthopaedic Surgery Orthopaedic Surgery of the Spine; PCP Internal Medicine; Visit Provider Orthopaedic Surgery Orthopaedic Surgery of the Spine
PROC: 0SG00AJ Fusion of Lumbar Vertebral Joint with Interbody Fusion Device, Posterior Approach, Anterior Column, Open Approach (ICD-10-PCS; principal; 2018-08-25 07:45)
DX: M48.061 Spinal stenosis, lumbar region without neurogenic claudication (principal); M48.07 Spinal stenosis, lumbosacral region; M47.26 Other spondylosis with radiculopathy, lumbar region; M47.27 Other spondylosis with radiculopathy, lumbosacral region
CPT/HCPCS: 36415; 72100; 76000; 85014; 85018; 94760; 97116; 97162; 97165; 97530; 97535; 99406; C1776; C9290; J0131; J0330; J0690; J1100; J1170; J2060; J2250; J2405; J2704; J3010; J7613

== ENCOUNTER 2018-11-18 05:43 | Emergency (ER) | payer MEDICARE, SELFPAY ==
[2018-08-25 14:05] VITALS: BMI 32.2
[2018-11-18 05:50] VITALS: BP 171/90; PULSE 86; RESP 14; O2SAT 97; BMI 30.1
[2018-11-18] MEDS: KETOROLAC 60 MG/2 ML VIAL IM (06:14)
[2018-11-18] MEDS: diazePAM 5 MG TABLET PO (06:15)
--- NOTE | 2018-11-18 06:20 | ED_ITS ---
HPI - Neck Pain/Injury General Chief Complaint: Neck Pain/Injury Stated Complaint: Pain in neck Time Seen by Provider: 11/18/18 05:52 Source: patient Mode of arrival: ambulatory Limitations: no limitations History of Present Illness HPI Narrative: Patient is a 68-year-old female who presents with neck pain. She has chronic neck pain she actually had surgery in April 2018. She went to physical therapy twice this week. She is having worsening pain on the left side. She has more pain and decreased range of motion with turning her head to the left. She occasionally has some numbness and tingling in that left hand none right now. No weakness. She took gabapentin last night without any relief she also took some Tylenol she said that also has not helped her. MD complaint: neck pain Severity: moderate Duration: constant Related Data Home Medications Medication Instructions Recorded Confirmed loratadine [Claritin] 10 mg PO DAILY PRN #0 04/25/12 08/25/18 acetaminophen [Tylenol Extra 1,000 mg PO BID PRN 04/13/18 08/25/18 Strength] Glucosamine-MSM Complex 1 tab PO BID 04/20/18 08/25/18 Previous Rx's Medication Instructions Recorded duloxetine 60 mg capsule,delayed 60 mg PO DAILY #90 cap 10/24/17 release levothyroxine 50 mcg tablet 50 mcg PO QAM #90 tab 05/11/18 alprazolam 0.5 mg tablet See Rx Instructions PO TIDP PRN 05/24/18 #30 tab estradiol [Climara] 0.1 mg TOPICAL Q7D@0900 #12 patch 06/01/18 docusate sodium 100 mg PO BID #0 cap 08/26/18 hydroxyzine pamoate 25 mg PO Q4HR PRN #50 cap 08/26/18 oxycodone 5 mg PO Q4-6H PRN #40 tab 08/26/18 diazepam [Valium] 5 mg PO BID PRN #10 tab 11/18/18 Allergies Allergy/AdvReac Type Severity Reaction Status Date / Time No Known Drug Allergies Allergy Verified 08/25/18 07:12 Review of Systems Review of Systems GENERAL: Denies chills, fatigue, malaise, fever, sweats, travel HEENT: Denies sinus pain, ear pain, sore throat, difficulty swallowing, neck pain RESPIRATORY: Denies dyspnea, cough, wheezing, hemoptysis, sputum. CARDIOVASCULAR: Denies chest pain, palpitations, orthopnea, edema GASTROINTESTINAL: Denies nausea, vomiting, abdominal pain, diarrhea, constipation, melena. : Denies dysuria, frequency, incontinence, hematuria, urinary retention, flank pain. MUSCULOSKELETAL: Left-sided neck pain SKIN: No rash, no erythema, no pruritus NEUROLOGIC: Denies weakness, dizziness, headache, numbness, change in speech, confusion PSYCHIATRIC: No concerning psychosocial issues. 12 point review of systems is negative except for those stated above and HPI [facility] Medical History Chronic constipation (Acute) Chronic cough (Acute) Chronic low back pain (Acute) History of rectocele (Acute 03/01/16) Osteoarthritis (Acute) Recurrent sinusitis (Acute) DENNIS (stress urinary incontinence, female) (Acute) Surgical History Hx of sinus surgery (Acute) S/P cervical spinal fusion (Acute 04/20/18) Status post trigger finger release (Acute) Status post colonoscopy Status post colonoscopy Status post hysterectomy Family History (Updated 09/23/14 @ 00:00 by Conversion Provider) Brother Age: 71 Diabetes mellitus Father Diabetes mellitus Mother Mental health problem Grandfather Cancer Social History household members: spouse Smoking Status: Current every day smoker alcohol intake: current Family History Brother Age: 71 Diabetes mellitus Father Diabetes mellitus Mother Mental health problem Grandfather Cancer Social History household members: spouse Smoking Status: Current every day smoker alcohol intake: current Exam Initial Vital Signs Initial Vital Signs: Vital Signs Pulse Rate 86 11/18/18 05:50 Respiratory Rate 14 11/18/18 05:50 Blood Pressure 171/90 H 11/18/18 05:50 Pulse Oximetry 97 11/18/18 05:50 GENERAL: Patient appears in pain NECK: No vertebral tenderness decreased range of rotation to the left ankle a muscle spasm is felt on the left sternocleidomastoid. Pain reproducible palpation. CARDIOVASCULAR: peripheral pulses in tact, cap refill <2 sec RESPIRATORY: No respiratory distress, speaks in full sentences without difficulty EXTREMITIES: Normal range of motion, no clubbing or edema. Neurovascularly intact NEUROLOGICAL: Cranial nerves II through XII grossly intact. Normal gait and speech. SKIN: Warm, dry, no petechiae, no rashes or lesions. Course Orders Ordered: Discontinued Medications Diazepam (Valium) 5 mg PO NOW ONE Stop: 11/18/18 06:05 Last Admin: 11/18/18 06:15 Dose: 5 mg Ketorolac Tromethamine (Toradol) 60 mg IM NOW ONE Stop: 11/18/18 06:05 Last Admin: 11/18/18 06:14 Dose: 60 mg Vital Signs - 8 hr 11/18/18 05:50 Pulse Rate 86 Respiratory Rate 14 Blood Pressure 171/90 H Pulse Oximetry 97 MDM - Neck Pain/Injury MDM Narrative Medical decision making narrative: The patient overall feeling much better. Still having some pain but improved. Discharge Plan Departure Patient Disposition: Home Clinical Impression: Cervical paraspinal muscle spasm Instructions: Chronic Neck Pain Activity Restrictions/Additional Instructions: *You have been diagnosed with neck muscle spasm *What to do: Recommend heating pad, increase movement, light stretching. *Continue to take medications as directed -ibuprofen 600 mg every 6 hours if needed for pain with food -a Valium 5 mg at every 12 hours if needed for muscle spasm-do not drive while taking this medication *Follow up with your primary care provider in 2-3 days *Return to ER if you should have increased weakness in extremities worsening pain or any new, worsening or concerning symptoms Prescriptions: New diazepam [Valium] 5 mg tablet 5 mg PO BID PRN (Reason: muscle spasm) Qty: 10 RF: 0 No Action loratadine [Claritin] 10 MG tablet 10 mg PO DAILY PRN (Reason: bronchial allergy) Qty: 0 RF: 0 levothyroxine 50 mcg tablet 50 mcg PO QAM Qty: 90 RF: 0 alprazolam [Xanax] 0.5 mg tablet See Rx Instructions PO TIDP PRN (Reason: anxiety) Qty: 30 RF: 0 estradiol [Climara] 0.1 mg/24 hr patch weekly 0.1 mg Topical Q7D@0900 Qty: 12 RF: 3 duloxetine 60 mg capsule,delayed release(DR/EC) 60 mg PO DAILY Qty: 90 RF: 3 acetaminophen [Tylenol Extra Strength] 500 mg Tablet 1,000 mg PO BID PRN (Reason: pain) RF: 0 Glucosamine-MSM Complex Tablet 1 tab PO BID RF: 0 docusate sodium 100 mg Capsule 100 mg PO BID Qty: 0 RF: 0 hydroxyzine pamoate 25 mg Capsule 25 mg PO Q4HR PRN (Reason: muscle spasm) Qty: 50 RF: 0 oxycodone 5 mg tablet 5 mg PO Q4-6H PRN (Reason: pain) Qty: 40 RF: 0 Referrals: Emperatriz Peters ARNP [Primary Care Provider] -
[2018-11-18 07:06] VITALS: BP 168/88; PULSE 82; RESP 14; O2SAT 99
== END 2018-11-18 07:09 | disposition home or self-care (01) ==
PROVIDERS: Emergency Provider Emergency Medicine; PCP Internal Medicine
DX: M62.838 Other muscle spasm (principal)
CPT/HCPCS: 96372; 99282; 99283; J1885

== ENCOUNTER 2019-04-23 11:53 | Day surgery (SDC) | payer MEDICARE, SELFPAY ==
[2018-08-25 14:05] VITALS: BMI 32.2
--- NOTE | 2019-04-23 | PATH_ITS ---
[facility] Accession Number: [id number] . 01 Material submitted: . sigmoid colon - SIGMOID POLYP X2; 4 MM, 2 MM . 02 Diagnosis: Sigmoid Colon Polyps, 4 mm, 2 mm, Biopsies: Tubular adenoma x1. Hyperplastic polyp x1. MRV 04/24/2019 0956 Local . 02 Electronically signed: . Thomas Colin MD, PhD, Pathologist NPI- [id number] . 01 Gross description: . SIGMOID POLYP X2; 4 MM, 2 MM: Received in formalin are 2 fragment(s) of jimenez, soft tissue measuring 0.2 x 0.2 x 0.2 cm to 0.3 x 0.3 x 0.2 cm submitted entirely in 1 cassette(s) /[facility] 04/23/20192024 Local . 02 Pathologist provided ICD-10: D12.5, K63.5 . 02 CPT . 398711 Performed at: 01 [facility] [address], [place], [place] [id number] MD John Norris MD Phone: [phone] Performed at: 02 [facility] [address] [place], [place] [id number] MD Helena Gomez MD Phone: [phone]
[2019-04-23 12:15] VITALS: BP 121/79; PULSE 102; RESP 17; TEMP 36.2; O2SAT 94; BMI 30.7
[2019-04-23] MEDS: SODIUM CHLORIDE 0.9% 1,000 ML 200 ML IV (12:43)
--- NOTE | 2019-04-23 13:03 | PM.PREOP ---
Pre-operative Note Interval Note History & Physical reviewed/Exam performed by Physician: Yes Changes to H&P: No ASA Class (for procedural sedation): II
--- NOTE | 2019-04-23 13:03 | PM.OP.ENDO ---
Operative Date/Time/Diagnoses Date of procedure: 04/23/19 Time of procedure: 13:03 Pre-op diagnosis: 1. History of colon polyps 2. Hematochezia 3. Constipation 4. Screening for colon cancer Post-op diagnosis: other (Sigmoid polyp x2, 2-6 mm, removed with cold biopsy forceps, left-sided diverticulosis, external hemorrhoids) Procedure & Clinicians Study performed: Colonoscopy Same procedure as scheduled: Yes Indications: 1. History of colon polyps 2. Hematochezia 3. Constipation 4. Screening for colon cancer Surgeon: Helen Martin Procedure Notes SCOAP/Timeout: 13:08 Procedure in detail: ENDOSCOPIST: Helen Martin MD PROCEDURE: Colonoscopy INDICATIONS: 1. History of colon polyps 2. Hematochezia 3. Constipation 4. Screening for colon cancer MEDICATION: Levsin 0.125 mg sublingual, incremental doses of Versed and fentanyl until appropriate level sedation achieved. ASA CLASS: 2 CECAL WITHDRAWAL TIME: 9 minutes COMPLICATIONS: None. EXTENT OF PROCEDURE: Cecum. QUALITY OF PREP: Good with portions of liquid stool. PROCEDURE: Prior to insertion of the colonoscope, a digital rectal examination was accomplished with circumferential palpation of the distal rectal mucosa without significant findings being noted. The high-definition pediatric colonoscope was passed into the rectum in the usual fashion and advanced over to the cecum without difficulty. The ileocecal valve, appendiceal stoma, and medial wall all could be inspected and no abnormalities were seen. ASCENDING COLON: As the colonoscope was withdrawn, care was taken to expose and inspect the haustral folds and no abnormalities were seen. HEPATIC FLEXURE: Normal no polyps, diverticula or other abnormalities. TRANSVERSE COLON: Normal no polyps, diverticula or other abnormalities. DESCENDING COLON: Moderate diverticulosis, otherwise, no polyps or other abnormalities. SIGMOID COLON: 2 polyps, 2 mm and 6 mm, removed with cold biopsy forceps. Otherwise, moderate diverticulosis. RECTUM: Normal. J maneuver was produced. There was no significant perianal disease. The J maneuver was broken. The remainder of the rectum was inspected and there was minor external hemorrhoid disease. The scope was withdrawn. IMPRESSION: 1. Sigmoid polyp x2, 2 mm and 6 mm, removed with cold biopsy forceps 2. Left-sided diverticulosis, moderate 3. External hemorrhoids PLAN: 1. Follow up in clinic status post pathology results. The possibility of a missed lesion including a malignancy has been discussed with the patient previously. Potential alarm symptoms have been discussed and should be reported immediately. Scope withdrawal time: 9 Sedation minutes: 29 Findings: diverticulosis, polyp and other findings (External hemorrhoid) Specimen(s): other (Sigmoid x2) Complications: none Impression: As above Post-procedure Recommendations: Will call with biopsy results Follow up: weeks (2) Disposition: PACU
[2019-04-23] MEDS: MIDAZOLAM 5 MG/5 ML VIAL IV ×2 (13:12→13:23)
[2019-04-23] MEDS: fentaNYL 250 MCG/5 ML INJ IV (13:23)
[2019-04-23 13:43] VITALS: BP 110/63; PULSE 95; RESP 11; TEMP 37.2; O2SAT 93
--- NOTE | 2019-04-23 13:45 | SUR.PHASEI ---
To pacu from endo, very drowsy, arouses easily, answers appropriate. returned to sleep as soon as conversation paused. skin warm and dry, resp unlabored
[2019-04-23 13:47] VITALS: BP 111/64; PULSE 93; RESP 10; O2SAT 94
[2019-04-23 13:52] VITALS: BP 118/83; PULSE 92; RESP 12; O2SAT 96
--- NOTE | 2019-04-23 13:57 | SUR.PHASEI ---
HOB elevated, juice given, coughing - states that it is from sinus drainage. VSS. Very Drowsy.
[2019-04-23 13:58] VITALS: BP 114/88; PULSE 99; RESP 18; TEMP 36.6; O2SAT 94
[2019-04-23 14:05] VITALS: BP 119/75; PULSE 94; RESP 16; TEMP 35.7; O2SAT 96
== END 2019-04-23 14:17 | disposition home or self-care (01) ==
PROVIDERS: PCP Internal Medicine; Visit Provider Student in an Organized Health Care Education/Training Program
PROC: 0DJD8ZZ Inspection of Lower Intestinal Tract, Via Natural or Artificial Opening Endoscopic (ICD-10-PCS; CPT 45378; principal; 2019-04-23 13:00)
DX: K92.1 Melena (principal); K59.00 Constipation, unspecified; K64.8 Other hemorrhoids; K57.30 Diverticulosis of large intestine without perforation or abscess without bleeding; D12.5 Benign neoplasm of sigmoid colon; K63.5 Polyp of colon
CPT/HCPCS: 45380; J2250; J3010

== ENCOUNTER → 2019-07-27 11:20 | Outpatient (CLI) | payer MEDICARE, SELFPAY ==
[2018-08-25 14:05] VITALS: BMI 32.2
--- NOTE | 2019-07-27 | DI.CT.S_ITS ---
PROCEDURE: CT LUMBAR SPINE WO CON INDICATIONS: Spondylolisthesis, lumbosacral region TECHNIQUE: Noncontrast 3 mm thick sections acquired from the T12 level to the sacrum. Sagittal and coronal reformats were constructed. For radiation dose reduction, the following was used: automated exposure control. COMPARISON: None. FINDINGS: Image quality: Excellent. Bones: No acute vertebral body compression fractures. No suspicious lytic or blastic bony lesions. Central spinal caliber is of normal overall caliber. No pars defects. Postoperative changes are seen, with bilateral pedicle screws at the L4-S1 levels. The screws appear well placed. Vertical fixation rods are seen. Disc spacers are seen at the L4-L5 and the L5-S1 levels. No findings of hardware failure or hardware loosening are seen. There has been removal of portions of the posterior elements. There is minimal retrolisthesis seen at the L1-L2, L2-L3, and L4-L5 levels. T12-L1: No significant abnormality is seen. L1-L2: Severe loss of disc height is seen anteriorly. Endplate irregularity and sclerosis can be seen. Moderate disc bulge is seen, with a left foraminal disc osteophyte protrusion. There is moderate to severe left-sided and mild to moderate right-sided neural foraminal narrowing seen. Moderate central canal narrowing is seen. These degenerative changes are progressed compared to 2018. L2-L3: At least moderate loss of disc height is seen. Vacuum disc phenomenon is seen at this level. Endplate irregularity and sclerosis can be seen. At least moderate disc bulge is seen, which is eccentric to the left. Moderate bilateral neural foraminal narrowing is seen. Mild to moderate central canal narrowing is seen. The previously seen left-sided disc extrusion is not well seen on these CT images. L3-L4: The disc height is well-preserved. Mild disc bulge is seen, with a right lateral recess disc osteophyte protrusion, as on series 2 image 45 and on series 6 image 22. There is at least moderate right-sided and mild left-sided neural foraminal narrowing seen. Moderate central canal narrowing is seen. These imaging findings have progressed compared to the prior study. L4-L5: Postoperative changes are seen at this level. Posteriorly projected endplate osteophytes are seen. At least moderate disc bulge is seen, which is eccentric to the right. No significant central canal narrowing is seen. When comparison is made with the prior examination, the degrees of narrowing are similar. L5-S1: Postoperative changes are seen at this level. No significant neural foraminal or central canal narrowing can be seen. This level is improved compared to 2018. Soft tissues: No retroperitoneal masses or hematomas. Visualized aorta is normal in caliber. Diverticulosis is seen, without findings of active diverticulitis. IMPRESSION: Postoperative change with bilateral pedicle screws L4-S1, with improvement in the degrees of narrowing at the L5-S1 level. Progression of degenerative change at L1-L2 and at L3-L4. The previously seen left-sided disc extrusion at the L2-L3 level is not well-seen on this CT study. Incidental note is made of: Diverticulosis is seen, without findings of active diverticulitis. Dictated by: Wood Mccauley M.D. on 07/27/2019 at 12:12 Approved by: Wood Mccauley M.D. on 07/27/2019 at 12:19
== END ==
PROVIDERS: PCP Internal Medicine; Referring Provider Orthopaedic Surgery Orthopaedic Surgery of the Spine; Visit Provider Orthopaedic Surgery Orthopaedic Surgery of the Spine
DX: M43.17 Spondylolisthesis, lumbosacral region (principal); M47.816 Spondylosis without myelopathy or radiculopathy, lumbar region; K57.90 Diverticulosis of intestine, part unspecified, without perforation or abscess without bleeding
CPT/HCPCS: 72131

== ENCOUNTER → 2019-12-18 09:00 | Outpatient (CLI) | payer MEDICARE, SELFPAY ==
[2018-08-25 14:05] VITALS: BMI 32.2
[2019-12-18 09:51] LABS: Add Manual Diff / Slide Review NO; Basophils Absolute Auto 100 /uL (0-100); Basophils Percent Auto 1.8 % (0-2); Eosinophils Absolute Auto 100 /uL (0-450); Eosinophils Percent Auto 2.9 % (2-4); Hematocrit 43.2 % (36-46); Hemoglobin 14.2 g/dL (12.0-16.0); Lymphocytes Absolute Auto 1300 /uL (1100-4500); Lymphocytes Percent Auto 27.8 % (25-40); Mean Corpuscular HGB Conc 32.9 % (30-36); Mean Corpuscular Hemoglobin 29.2 PG (26-34); Mean Corpuscular Volume 88.6 fL (80-100); Monocytes Absolute Auto 400 /uL (0-900); Monocytes Percent Auto 9.3 % (3-14); Neutrophils Absolute Auto 2700 /uL (1500-7000); Neutrophils Percent Auto 58.2 % (50-75); Platelet Count 243 X10^3/uL (150-400); Red Blood Cell Count 4.88 X10^6/uL (4.0-5.2); Red Cell Distribution Width 13.9 % (11.6-14.8); White Blood Cell Count 4.7 X10^3/uL (4.5-11.0)
[2019-12-18 09:53] LABS: BUN Creatinine Ratio 18.1 (6-22); Blood Urea Nitrogen 15 mg/dL (7-17); Calcium 9.6 mg/dL (8.4-10.2); Carbon Dioxide 29 mmol/L (22-32); Chloride 103 mmol/L (98-107); Estimated Glomerular Filt Rate > 60.0 mL/min (>60); Glucose 105 mg/dL (80-110); HEMOLYSIS < 15 (0-50); Potassium 4.4 mmol/L (3.4-5.1); Sodium 137 mmol/L (137-145)
== END ==
PROVIDERS: PCP Internal Medicine; Referring Provider Orthopaedic Surgery Orthopaedic Surgery of the Spine; Visit Provider Orthopaedic Surgery Orthopaedic Surgery of the Spine
DX: Z01.818 Encounter for other preprocedural examination (principal); Z01.812 Encounter for preprocedural laboratory examination
CPT/HCPCS: 36415; 80048; 85025; 93005; 93010

== ENCOUNTER → 2020-01-06 08:33 | Outpatient (CLI) | payer MEDICARE, SELFPAY ==
[2018-08-25 14:05] VITALS: BMI 32.2
[2020-01-07 20:32] LABS: COVID19 Sendout Not Detected (Not Detect)
== END ==
PROVIDERS: PCP Internal Medicine; Visit Provider Nurse Practitioner
DX: Z11.59 Encounter for screening for other viral diseases (principal)
CPT/HCPCS: 87635

== ENCOUNTER 2020-01-09 07:40 | Inpatient (IN) | payer MEDICARE, SELFPAY ==
[2018-08-25 14:05] VITALS: BMI 32.2
[2019-12-24 08:56] VITALS: BMI 31.8
[2020-01-09] VITALS (26 sets, daily range): BP systolic 82–129; BP diastolic 46–73; PULSE 81–112; RESP 0–16; TEMP 36.1–36.8; O2SAT 94–99; BMI 31.8
--- NOTE | 2020-01-09 | DI.RAD.S_ITS ---
PROCEDURE: XR LUMBAR SPINE 2-3V INDICATIONS: POST OP TECHNIQUE: 3 views of the lumbar spine were acquired. COMPARISON: [facility], SHAK[place], XR LUMBAR SPINE 2-3V, 08/25/2018, 8:22. [facility], CR, L-SPINE 2-3 VIEWS, 05/03/2017, 11:17. FINDINGS: Bones: Postoperative evaluation in this patient who has undergone extension of spine fusion which previously covered from L4 through S1 and now covers from L1 through S1. Centrally positioned interbody disc cage prosthesis devices are seen at L2-L3, L3-L4, L4-L5, and L5-S1. Soft tissues: Overlying bowel gas pattern is normal. No suspicious soft tissue calcifications. IMPRESSION: Normal alignment is stab wished after posterior fusion procedure as discussed, with transverse pedicle screws and vertical fixation rods stabilizing from L1 through S1. Dictated by: Kory Juarez M.D. on 01/09/2020 at 15:06 Approved by: Kory Juarez M.D. on 01/09/2020 at 15:11
[2020-01-09] MEDS: LACTATED RINGERS 1,000 ML 42 ML IV ×4 (08:22→14:26)
--- NOTE | 2020-01-09 08:31 | PM.PREOP ---
Pre-operative Note COVID-19 COVID-19 status: Negative Result date/Date tested (Pos, Neg/Pending): 01/07/20 Interval Note History & Physical reviewed/Exam performed by Physician: Yes Changes to H&P: No
[2020-01-09] MEDS: CEFAZOLIN 2 GM/100 ML FROZ.PIGGY IV ×2 (08:46→17:36)
[2020-01-09] MEDS: ACETAMINOPHEN IV 1,000 MG/100 ML VIAL 400 MG IV (09:00)
[2020-01-09] MEDS: BUPIVACAINE 0.25% W/ EPI 30 ML VIAL INJ (09:48)
[2020-01-09] MEDS: BUPIVACAINE LIPOSOME 266 MG/20 ML VIAL INJ (09:48)
--- NOTE | 2020-01-09 14:20 | P.OP_ITS ---
Operative Date/Time/Diagnoses Date of procedure: 01/09/20 Time of procedure: 08:44 Pre-op diagnosis: 1. L1-2, L2-3, L3-4 spinal stenosis 2. L1-S1 spondylosis with radiculopathy 3. Hx of L4-S1 fusion with instrumentation and hardware loosening 4. L4-5 pseudoarthrosis Post-op diagnosis: same Procedure & Clinicians Procedure: 1. L2-3, L3-4 posterolateral and posterior interbody fusion 2. L2-3, L3-4 posterior interbody cage placement 3. L4-5, L5-S1 posterior segmental instrumentation removal 4. L4-5, L5-S1 revision laminectomy with exploration of fusion 5. L3-4, L4-5, L5-S1 posterior segmental instrumentation with pedicle screw placement 6. L1-2, L4-5 posterolatearl fusion 7. [place] of bone marrow from iliac crest through a separate incision 8. Utilization of microsurgical technique and operating microscope Same procedure as scheduled: Yes Indications: Patient has been having chronic back pain and worsening lumbar radiculopathy. Patient had a previous lumbar fusion has been doing well until the last 6 months. Patient failed multiple conservative management with worsening pain weakness and numbness in her lower extremity. Patient has been having difficulty performing activity of daily living. After discussing risks benefits of treatment options, patient elected proceed with surgery. Surgeon: Charles Tapia Manager Reporting: Sarahy Alva Click Yes if Unassisted: No Anesthesia Type: General Operative Notes Closure Type: primary Specimen(s): none sent Prosthetic devices, grafts, tissues, transplants, or devices: Globus revolve screws, Rise cages Applied: catheter Estimated Blood Loss (mL): 250 Blood products transfused: none Procedure in detail: Patient was seen in the preoperative area. Risks and benefits of the surgery was discussed with the patient. Informed consent was obtained from the patient and placed in the chart. Surgical site was marked. Patient was taken to the operative room. General anesthesia was administered. Prophylactic antibiotic was given to the patient less than 30 min before the incision was made. Patient was placed into a prone position on the Timothy table. Patient's back was then prepped and draped in the sterile fashion. Time- out was performed at this time. Using patient's previous scar incision was made over the L1-S1 interval on the left side. Fascia was incised in line with skin incision. Patient's previously placed hardware over the L4-S1 level was identified by dissecting down to the level the hardware using a Bovie and a Blancas. The locking caps which was removed using globus screwdriver. The locking shlomo was then removed from the tulips of the pedicle screws using a Jase. The pedicle screws were then removed using the screwdriver. The screws were found to have good purchase except L4 screw, which was loose. The Globus and MARS retractors was then placed into the wound and docked onto the L2 and L3 lamina using C-arm guidance. Using microsurgical technique and operating microscope a laminectomy facetectomy was performed by removing the L2 and L3 lamina and the L2-3 L3-4 facet. The disc space at L2-3-L3-4 level was identified next. And a total diskectomy was performed at L2-3 L3-4 level. The endplates were decorticated using a rasp and shaver. The total diskectomy and decortication was performed at L2-3 L3-4 level in order to to accomplish a L2-3 L3-4 fusion. The local bone from the laminectomy and facetectomy was saved for local bone grafting. After the total diskectomy and decortication was completed, Trifecta bone graft material was combined with local bone that was harvested earlier. At this time, a separate skin is incision was made over the iliac crest. A Jamshidi needle was inserted into the iliac crest through a separate skin incision. 5 cc of bone marrow aspiration was obtained through the separate skin incision using a Jamshidi needle from the iliac crest. The bone marrow aspiration was combined with local bone and the Trifecta bone grafting material. The bone grafting material was placed into the L2-3, L3-4 interbody space along with a expandable cage. The cage was expanded to its maximum height using the torque limiting screwdriver. At this time a mirror image incision was made on the right side. The fascia was incised in line with the skin incision. Patient's previously placed hardware on the right side was then removed in the same fashion as it was on the left side. The hardware was also found to have good purchase except the L4 pedicle screw which was found to be loose. The fusion mass on the right side was exposed by performing a right-sided hemilaminectomy at L4-5 L5-S1 level. The hemilaminectomy was performed using the Kerrison rongeur to undercut the lamina as well removing additional epidural scar tissue for purpose of decompressing the epidural space. The fusion mass was explored and was found have visible motion indicating pseudoarthrosis at L4-5 level. The L5-S1 level was found to be solidly fused. Globus MARS retractor was inserted and docked onto the L1-2 L2-3 L3-4 L4-5 posterolateral gutter. Using the power drill, posterior-lateral decortication was performed at L1-2 L2-3 L3-4 L4-5 level until bleeding cortical bone was identified. The remaining bone grafting material along with DBM bone grafting material was placed into the L1-2 L2-3 L3-4 L4-5 posterior lateral gutter he order to accomplish posterolateral fusion at the L1-2 L2-3 L3-4 L4-5 level. Using the double C-arm technique, pedicle screws were placed into the L1-L2-L3-L4 L5 and S1 pedicles bilaterally. This was done by placing the Jamshidi needle into the pedicles, then placing the guidewires over the Jamshidi needle, and finally placing the cannulated screws over the guidewires bilaterally. After the pedicle screws were placed, 2 titanium rods was locked into the heads of the pedicle screws using locking caps and torque limiting screwdriver. Total 12 pedicle screws were placed. After all the hardware was placed, and confirmed with AP and lateral C-arm imaging, the wound was then irrigated with sterile normal saline and packed with Ray-Tavia gauze for 3 min to accomplish hemostasis. After the gauze was removed the deep fascia was closed with #1 Vicryl suture. The subcutaneous layer was closed with 2-0 Vicryl. The skin was closed with skin terese. Patient tolerated the procedure well. There were no complications. Complications: none Post-operative Condition: stable Disposition: PACU Plan for aftercare: Admit to inpatient hospital
[2020-01-09] MEDS: HYDROMORPHONE 2 MG INJ IV ×3 (14:44→14:58)
--- NOTE | 2020-01-09 14:53 | SUR.PHASEI ---
Pt arrived, needing chin support and oral airway for patencyof airway. Pt slowly awake, air way out, breathing on own. Medicated with dilaudid for pain.
--- NOTE | 2020-01-09 15:11 | SUR.PHASEI ---
PVC's noted, sometimes bigeminy, Dr. Burns aware.
--- NOTE | 2020-01-09 15:12 | SUR.PHASEI ---
Pt rates pain 8/10, rr below 10, relaxed between wakefulness.
--- NOTE | 2020-01-09 15:50 | SUR.PHASEI ---
Report to JASWANT Lawson
--- NOTE | 2020-01-09 16:12 | SUR.PHASEI ---
Dr Roberts brought to pt's bedside, pt has periods of apnea. Dr Tapia also at pt's bedside. requests icu bed for better monitoring of respiratory status and RT consult. Report to Avelina in ICU. Pt transported up on .
--- NOTE | 2020-01-09 16:50 | SUR.PHASEI ---
Pt left in room with JASWANT Quan bed low, locked and SCDs on. RT in room with pt, Dr. Roberts in room as well, spoke with RT as well.
[2020-01-09] MEDS: SODIUM CHLORIDE 0.9% 1,000 ML 100 ML IV (17:36)
[2020-01-09] MEDS: NALOXONE 0.4 MG/ML VIAL 0.2 MG IV ×2 (18:52→22:20)
--- NOTE | 2020-01-09 19:03 | PC.NURSE ---
Patient came up from PACU at 1640 extremely drowsy but able to be aroused to voice and alert and oriented when awake. When asleep patient becomes apneic. By 184 patient was still needing to be reminded to breathe multiple times a minute and 0.2mg of Narcan was given. Patient became more alert and awake promptly and RR became steady 12-16.
--- NOTE | 2020-01-09 20:20 | PM.HP.1 ---
History of Present Illness History of Present Illness Date Patient Seen: 01/09/20 Time Patient Seen: 19:47 Chief complaint: TLIF Narrative: The medicine service was requested to consult on the care of Ms. Rosi Napoles who is a 69-year-old female with a past medical history significant for hypertension, migraines, hypothyroidism and chronic lumbar spine pain with radiculopathy who underwent went lumbar spinal fusion of L2-3 and L3-4 with instrumentation and revision of fusion L4-5-S1 with instrumentation today by Dr. Tapia. Intraoperatively the patient received 4 mg of delighted and 250 mcg fentanyl as well as IV Tylenol 1 g approximately 8:00 a.m.. In PACU the patient received additional 1.5 mg of Dilaudid. Upon admission to the intensive care unit the patient was quite sedated and hypoventilating with apneic periods. The patient's end-tidal CO2 monitor which varies between mid 30s to upper 40s depending on wakefulness and stimulation. Patient exhibits episodes of apnea requiring continuous verbal stimulation breathing. She received 0.2 mg of Narcan with improvement and respiratory quality but magnification of pain. At the time of encounter the patient is awake alert and appropriate complaining of pain and feeling very tired. The patient arrived in ICU from PACU at approximately 4:45 p.m.. Vital signs were temperature of 96.2?, heart rate 92, blood pressure 129/61, respirations of 9, saturating 96% on 1 L nasal cannula. Patient History Medical History (Updated 01/09/20 @ 16:16 by Leland Roberts MD) Chronic constipation (Acute) Chronic cough (Acute) Chronic low back pain (Acute) History of rectocele (Acute 03/01/16) Osteoarthritis (Acute) Recurrent sinusitis (Acute) DENNIS (stress urinary incontinence, female) (Acute) Surgical History (Updated 12/24/19 @ 09:06 by Mare Dietz RN) History of lumbar spinal fusion (Acute 08/2018) Hx of sinus surgery (Acute) S/P cervical spinal fusion (Acute 04/20/18) Status post colonoscopy Status post colonoscopy Status post hysterectomy Status post trigger finger release (Acute) Family & Social History Family History Brother Age: 72 Diabetes mellitus Father Diabetes mellitus Mother Mental health problem Grandfather Cancer Social History: household members spouse Prior Living Arrangements House Safety & Behavioral: Feels Safe in Current Yes Environment Been Physically Hurt or No Threatened By a Person Suicidal Ideation Description None Suicide Plan Description No Plan Tobacco & Substance use: Tobacco type cigarettes Smoking Status Current every day smoker Smoking packs per day 0.5 alcohol intake never alcohol intake frequency holiday/special occasion Substance Use Type does not use Meds Home Medications and Allergies Home Medications Medication Instructions Recorded Confirmed Type loratadine [Claritin] 10 mg PO DAILY PRN #0 04/25/12 01/09/20 History duloxetine 60 mg capsule,delayed 60 mg PO DAILY #90 cap 10/24/17 01/09/20 Rx release acetaminophen [Tylenol Extra 1,000 mg PO BID PRN 04/13/18 01/09/20 History Strength] Glucosamine-MSM Complex 1 tab PO BID 04/20/18 01/09/20 History levothyroxine 50 mcg tablet 50 mcg PO QAM #90 tab 05/11/18 01/09/20 Rx alprazolam 0.5 mg tablet See Rx Instructions PO TIDP PRN 05/24/18 01/09/20 Rx #30 tab Allergies Allergy/AdvReac Type Severity Reaction Status Date / Time No Known Drug Allergies Allergy Verified 01/09/20 08:05 Exam Vital Signs (past 8 hours): - 01/09/20 14:22 01/09/20 14:25 01/09/20 14:27 Temperature 97.4 F L Pulse Rate 87 87 89 Respiratory Rate 12 8 L 12 Blood Pressure 89/53 L 82/47 L 88/46 L Pulse Oximetry 97 94 94 01/09/20 14:32 01/09/20 14:42 01/09/20 14:48 Temperature Pulse Rate 102 H 108 H 103 H Respiratory Rate 8 L 8 L 10 L Blood Pressure 93/59 L 104/62 103/66 Pulse Oximetry 96 96 95 01/09/20 14:57 01/09/20 15:02 01/09/20 15:08 Temperature 97.6 F Pulse Rate 112 H 100 H 102 H Respiratory Rate 10 L 10 L 7 L Blood Pressure 110/73 103/70 108/64 Pulse Oximetry 99 98 98 01/09/20 15:17 01/09/20 15:22 01/09/20 15:27 Temperature Pulse Rate 94 H 95 H 87 Respiratory Rate 11 L 10 L 8 L Blood Pressure 111/73 119/69 109/58 L Pulse Oximetry 97 98 98 01/09/20 15:40 01/09/20 15:55 01/09/20 16:07 Temperature 97.6 F Pulse Rate 91 H 92 H 102 H Respiratory Rate 10 L 10 L 14 Blood Pressure 105/61 114/56 L 112/66 Pulse Oximetry 94 98 99 01/09/20 16:17 01/09/20 16:22 01/09/20 16:30 Temperature 97.6 F Pulse Rate 95 H 88 97 H Respiratory Rate 0 L 7 L 12 Blood Pressure 102/62 103/60 Pulse Oximetry 95 99 96 01/09/20 16:40 01/09/20 17:10 01/09/20 17:40 Temperature 97.4 F L 96.9 F L Pulse Rate 99 H 92 H 95 H Respiratory Rate 11 L 9 L 9 L Blood Pressure 129/61 118/60 Pulse Oximetry 99 96 97 01/09/20 18:40 01/09/20 19:25 Temperature 97.8 F Pulse Rate 81 Respiratory Rate 9 L Blood Pressure 123/69 Pulse Oximetry 97 Oxygen Delivery Method Nasal Cannula Oxygen Flow Rate 1
[2020-01-09] MEDS: OXYCODONE IR 5 MG TABLET PO (20:25)
[2020-01-09] MEDS: SENNOSIDES 8.6 MG TABLET 17.2 MG PO (20:26)
[2020-01-09] MEDS: DOCUSATE 100 MG CAPSULE PO (20:26)
[2020-01-09] MEDS: ACETAMINOPHEN 325 MG TABLET 975 MG PO (20:26)
--- NOTE | 2020-01-09 21:07 | PM.CN ---
History of Present Illness Consult details Date Patient Seen: 01/09/20 Time Patient Seen: 19:45 Chief complaint: TLIF Reason for consult: Postoperative sedation and concern for hypoventilation. Requesting provider: Charles Tapia Narrative: The medicine service was requested to consult on the care of Ms. Rosi Napoles who is a 69-year-old female with a past medical history significant for past medical history of hypertension, migraines, hypothyroidism and chronic lumbar spine pain with radiculopathy who underwent went lumbar spinal fusion of L2-3 and L3-4 with instrumentation and revision of fusion L4-5-S1 with instrumentation today by Dr. Tapia. Intraoperatively the patient received 4 mg of delighted and 250 mcg fentanyl as well as IV Tylenol 1 g approximately 8:00 a.m.. In PACU the patient received additional 1.5 mg of Dilaudid. Upon admission to the intensive care unit the patient was quite sedated and hypoventilating with apneic periods. The patient's end-tidal CO2 monitor which varies between mid 30s to upper 40s depending on wakefulness and stimulation. Patient exhibits episodes of apnea requiring continuous verbal stimulation breathing. She received 0.2 mg of Narcan with improvement and respiratory quality but magnification of pain. At the time of encounter the patient is awake alert and appropriate complaining of pain and feeling very tired. The patient arrived in ICU from PACU at approximately 4:45 p.m.. Vital signs were temperature of 96.2?, heart rate 92, blood pressure 129/61, respirations of 9, saturating 96% on 1 L nasal cannula. She denies complaints of headaches or dizziness, visual changes, no chest pain or palpitations, back pain with deep inspiration, no abdominal pain, nausea vomiting. No complaints of peripheral numbness or tingling. Meds Home Medications and Allergies Home Medications Medication Instructions Recorded Confirmed Type loratadine [Claritin] 10 mg PO DAILY PRN #0 04/25/12 01/09/20 History duloxetine 60 mg capsule,delayed 60 mg PO DAILY #90 cap 10/24/17 01/09/20 Rx release acetaminophen [Tylenol Extra 1,000 mg PO BID PRN 04/13/18 01/09/20 History Strength] Glucosamine-MSM Complex 1 tab PO BID 04/20/18 01/09/20 History levothyroxine 50 mcg tablet 50 mcg PO QAM #90 tab 05/11/18 01/09/20 Rx alprazolam 0.5 mg tablet See Rx Instructions PO TIDP PRN 05/24/18 01/09/20 Rx #30 tab Allergies Allergy/AdvReac Type Severity Reaction Status Date / Time No Known Drug Allergies Allergy Verified 01/09/20 08:05 Review of Systems Review of Systems ROS: Yes All systems reviewed with the patient and are negative except as otherwise documented Exam Vital Signs (past 8 hours): - 01/09/20 14:22 01/09/20 14:25 01/09/20 14:27 Temperature 97.4 F L Pulse Rate 87 87 89 Respiratory Rate 12 8 L 12 Blood Pressure 89/53 L 82/47 L 88/46 L Pulse Oximetry 97 94 94 01/09/20 14:32 01/09/20 14:42 01/09/20 14:48 Temperature Pulse Rate 102 H 108 H 103 H Respiratory Rate 8 L 8 L 10 L Blood Pressure 93/59 L 104/62 103/66 Pulse Oximetry 96 96 95 01/09/20 14:57 01/09/20 15:02 01/09/20 15:08 Temperature 97.6 F Pulse Rate 112 H 100 H 102 H Respiratory Rate 10 L 10 L 7 L Blood Pressure 110/73 103/70 108/64 Pulse Oximetry 99 98 98 01/09/20 15:17 01/09/20 15:22 01/09/20 15:27 Temperature Pulse Rate 94 H 95 H 87 Respiratory Rate 11 L 10 L 8 L Blood Pressure 111/73 119/69 109/58 L Pulse Oximetry 97 98 98 01/09/20 15:40 01/09/20 15:55 01/09/20 16:07 Temperature 97.6 F Pulse Rate 91 H 92 H 102 H Respiratory Rate 10 L 10 L 14 Blood Pressure 105/61 114/56 L 112/66 Pulse Oximetry 94 98 99 01/09/20 16:17 01/09/20 16:22 01/09/20 16:30 Temperature 97.6 F Pulse Rate 95 H 88 97 H Respiratory Rate 0 L 7 L 12 Blood Pressure 102/62 103/60 Pulse Oximetry 95 99 96 01/09/20 16:40 01/09/20 17:10 01/09/20 17:40 Temperature 97.4 F L 96.9 F L Pulse Rate 99 H 92 H 95 H Respiratory Rate 11 L 9 L 9 L Blood Pressure 129/61 118/60 Pulse Oximetry 99 96 97 01/09/20 18:40 01/09/20 19:25 01/09/20 20:55 Temperature 97.8 F 97.9 F Pulse Rate 81 84 Respiratory Rate 9 L 11 L Blood Pressure 123/69 119/65 Pulse Oximetry 97 95 Oxygen Delivery Method Nasal Cannula Oxygen Flow Rate 1 Narrative Exam Narrative: GENERAL APPEARANCE: well developed, obese female with BMI of 31.8 was uncomfortable appearing, drowsy but alert. HEENT: Normocephalic, pupils constricted bilaterally, conjunctiva clear, EOMs intact without nystagmus, no rhinorrhea, mucous membranes are moist and pink. NECK/THYROID: neck supple, no JVD, no carotid bruit, no thyromegaly, trachea midline. LYMPH NODES: no cervical or supraclavicular lymphadenopathy. SKIN: [place], warm and dry. HEART: regular rate and rhythm, S1-S2, no murmur, no rubs or gallops, brisk capillary refill, no edema LUNGS: clear to auscultation bilaterally, no coarseness crackles or wheezing, no cough present CHEST: Symmetrical movement, no accessory muscle use, shallow tidal volume. ABDOMEN: Soft, no distention, no epigastric or abdominal tenderness, no guarding or peritoneal signs, no organomegaly, hypoactive bowel tones. BACK: Not examined, defer to primary team. EXTREMITIES: moves all extremities, dorsi-plantar flexion is 4-5/5 and symmetrical, no deformities or joint effusions. NEUROLOGIC: AAO to person place and time, no focal neurologic deficits, cranial nerves II-XII grossly intact, sensation intact to light touch, hearing grossly normal to speech. PSYCH: Good eye contact cooperative, appropriate with stable behavior Assessment & Plan Assessment & Plan narrative: This is an 87-year-old female patient who is status post L2-3 and L4 3-4 interbody fusion with instrumentation and revision of prior fusion at L4 through S1 with instrumentation today. The patient has received multiple doses pain medication intraoperative as well as receiving 1.5 mg of Dilaudid and recovery. Patient with hypoventilation upon return to ICU requiring close monitoring including oxygen and end-tidal CO2 with frequent cuing by nursing to breathe. Patient received 1 dose Narcan with improvement and respirations. 1. Status post lumbar interbody fusion with instrumentation and revision of prior fusion with instrumentation, active. -defer postoperative management to surgical team. -amend pain management as discussed below. 2. Postoperative respiratory depression, acute, active. -patient has respiratory rate of 9 on supplemental oxygen in end-tidal CO2 monitoring. -nursing at bedside providing frequent cuing to breathe due to apneic pauses and elevated CO2, the patient required a single dose of 0.2 mg Narcan IV with improvement of persistent hypoventilation. -the patient received 1 g of IV Tylenol at the onset of surgery administered 8:00 a.m. this morning. Ordered schedule Tylenol 975 mg every 8 hours 1st dose now. -ordered oxycodone 5-10 mg every 3 hours as needed pain. -ordered hydromorphone 0.25 mg every hour as needed for breakthrough pain to prevent over-sedation. -ice packs as needed. -discontinued the patient's as needed Xanax 0.5 mg to prevent over-sedation. The patient remains calm, discussed relaxation techniques and provided reassurance. -continue senna spirometry while awake. 3. Constipation, opiate induced, chronic, active -docusate 100 mg twice daily, senna 17.2 mg daily at bedtime and Dulcolax 10 mg suppository and fleets enema as needed ordered by primary team. -ordered MiraLax 17 g p.o. daily as needed for constipation. Code status: FULL CODE, the patient's is her surrogate decision maker. Thank you for allowing us to participate in the care of this pleasant patient. The medicine team will continue to follow. COVID-19 COVID-19 status: Negative Result date/Date tested (Pos, Neg/Pending): 01/06/20
[2020-01-09] MEDS: OXYCODONE IR 5 MG TABLET 10 MG PO (23:41)
[2020-01-10] MEDS: CEFAZOLIN 2 GM/100 ML FROZ.PIGGY IV (00:38)
[2020-01-10] MEDS: NALOXONE 0.4 MG/ML VIAL 0.2 MG IV (01:07)
[2020-01-10] MEDS: SODIUM CHLORIDE 0.9% 1,000 ML 100 ML IV (03:22)
[2020-01-10 03:44] VITALS: BP 114/54; PULSE 86; RESP 22; TEMP 36.6; O2SAT 97
[2020-01-10 04:40] LABS: pH ABG 7.34 (7.35-7.45)
[2020-01-10 04:41] LABS: Fractionated Inspired Oxygen 28; HCO3 ABG 26 mmol/L (22-26); Oxygen Saturation ABG 98 % (95-100); PCO2 ABG 49.1 mmHg (35-45); PO2 ABG 106 mmHg (80-100); TCO2 ABG 28 mmol/L (21-31)
--- NOTE | 2020-01-10 04:47 | PC.NURSE ---
02 decreased from 3L to 2L NC
[2020-01-10] MEDS: ACETAMINOPHEN 325 MG TABLET 975 MG PO ×2 (04:48→15:51)
[2020-01-10 05:18] LABS: Hematocrit 33.3 % (36-46); Hemoglobin 10.7 g/dL (12.0-16.0)
[2020-01-10 05:27] LABS: Alanine Aminotransferase 20 IU/L (<35); Albumin Globulin Ratio 1.8 (1.0-2.8); Alkaline Phosphatase 43 U/L (38-126); Aspartate Aminotransferase 44 IU/L (14-36); BUN Creatinine Ratio 16.2 (6-22); Bilirubin Total 0.4 mg/dL (0.2-1.3); Blood Urea Nitrogen 12 mg/dL (7-17); Calcium 8.8 mg/dL (8.4-10.2); Carbon Dioxide 25 mmol/L (22-32); Chloride 105 mmol/L (98-107); Estimated Glomerular Filt Rate > 60.0 mL/min (>60); Globulin 1.7 g/dL (1.7-4.1); Glucose 199 mg/dL (80-110); HEMOLYSIS 18 (0-50); Potassium 4.9 mmol/L (3.4-5.1); Sodium 135 mmol/L (137-145); Total Protein 4.7 g/dL (6.3-8.2)
[2020-01-10] MEDS: LEVOTHYROXINE 50 MCG TABLET PO (05:35)
[2020-01-10] MEDS: OXYCODONE IR 5 MG TABLET PO (05:38)
[2020-01-10 06:20] LABS: Hemoglobin A1C% w Est Avg Glu 5.3 % (4.0-6.0)
[2020-01-10 07:44] VITALS: BP 101/58; PULSE 86; RESP 15; TEMP 36.7; O2SAT 98
[2020-01-10] MEDS: OXYCODONE IR 5 MG TABLET 10 MG PO ×4 (08:09→21:10)
[2020-01-10] MEDS: LORATADINE 10 MG TABLET PO (08:10)
[2020-01-10] MEDS: DULOXETINE 30 MG CAPSULE 60 MG PO (08:10)
[2020-01-10] MEDS: DOCUSATE 100 MG CAPSULE PO ×2 (08:10→21:09)
[2020-01-10] MEDS: polyethylene glycoL 3350 17 GM POWD.PACK PO (08:12)
--- NOTE | 2020-01-10 08:27 | PM.PN.1 ---
Exam Vital Signs (past 8 hours): - 01/10/20 03:44 Temperature 97.8 F Pulse Rate 86 Respiratory Rate 22 Blood Pressure 114/54 L Pulse Oximetry 97 Oxygen Delivery Method Nasal Cannula Oxygen Flow Rate 1 Objective Labs Result Diagrams: 01/10/20 04:40 01/10/20 04:40 Labs: Laboratory Results - last 24 hr 01/10/20 01/10/20 01/10/20 04:31 04:40 04:40 Hgb 10.7 L Hct 33.3 L ABG pH 7.34 L ABG pCO2 49.1 H ABG pO2 106 H ABG HCO3 26 ABG Total CO2 28 ABG O2 Saturation 98 ABG Base Excess 0.0 FiO2 28 Sodium 135 L Potassium 4.9 Chloride 105 Carbon Dioxide 25 BUN 12 Creatinine 0.74 Estimated GFR > 60.0 BUN/Creatinine Ratio 16.2 Glucose 199 H Hemoglobin A1c Calcium 8.8 Total Bilirubin 0.4 AST 44 H ALT 20 Alkaline Phosphatase 43 Total Protein 4.7 L Albumin 3.0 L Globulin 1.7 Albumin/Globulin Ratio 1.8 01/10/20 04:40 Hgb Hct ABG pH ABG pCO2 ABG pO2 ABG HCO3 ABG Total CO2 ABG O2 Saturation ABG Base Excess FiO2 Sodium Potassium Chloride Carbon Dioxide BUN Creatinine Estimated GFR BUN/Creatinine Ratio Glucose Hemoglobin A1c 5.3 Calcium Total Bilirubin AST ALT Alkaline Phosphatase Total Protein Albumin Globulin Albumin/Globulin Ratio Assessment & Plan Assessment & Plan narrative: Pt is POD#1 s/p revision lumbar fusion. Patient is doing well. A&O x 3 Patient is neurovascularly intact on exam. Will do PT/OT. Will re-assess tomorrow. Plan for d/c home tomorrow or Tuesday. Will plan to downgrade to inpatient status instead of ICU.
--- NOTE | 2020-01-10 09:13 | PC.NURSE ---
pt doing well this am- she is alert/oriented x 3 able to report incisional back pain and her needs- d/c ivf per md order- removed telemetry ( was nsr) and medicated with oxycodone 10mg with breakfast and OT assessing pt at this time
--- NOTE | 2020-01-10 09:22 | CM.DANOTE ---
DCP: Case received, EMR reviewed and met with patient. Introduced self and role. Was able to obtain information from patient regarding her baseline activity status and history prior to her surgery. DCP assessment completed with information currently available. Patient is a 69 year old female who admitted yesterday morning to the care of the orthopedic team. PCP: Emperatriz SHAFFER. Payer: confirmed: Medicare/[employer]. Patient came to the hospital for a surgical procedure. She had L1-2, L2-3, L3-4 TLIF. According to patient, she has had prior back surgeries. She has history of osteoarthritis of her spine. Met with patient in her room. She is alert and oriented, she was sitting up in bed. She had her surgery yesterday morning. She is in ICU, she had some port-operative respiratory depression. Patient resides here in [place] with her spouse, Sammy. She uses a cane/walker at baseline, and does not currently drive. P: DCP to continue to follow. She has not yet worked with P.T. Will see how she does when she is able to work with the therapy team. At this time, patient is planning on going home with spouse support. Mary Allen RN/Net Architect
--- NOTE | 2020-01-10 10:20 | PM.PN.1 ---
Subjective Subjective Date Patient Seen: 01/10/20 Time Patient Seen: 10:22 Interval history: This is an 87-year-old female patient who is status post L2-3 and L4 3-4 interbody fusion with instrumentation and revision of prior fusion at L4 through S1 with instrumentation today. The patient has received multiple doses pain medication intraoperative as well as receiving 1.5 mg of Dilaudid and recovery. Patient with hypoventilation upon return to ICU requiring close monitoring including oxygen and end-tidal CO2 with frequent cuing by nursing to breathe. She was given 1 dose of Narcan with improvement. This morning she is more awake and alert, although has quite a bit of back pain still. End-tidal CO2 monitoring was turned off and patient is on minimal nasal cannula this morning. She denies any chest pain, shortness of breath, palpitations, nausea, vomiting. She is eager to get up and work physical therapy today. Exam Vital Signs (past 8 hours): - 01/10/20 03:44 01/10/20 07:44 Temperature 97.8 F 98.0 F Pulse Rate 86 86 Respiratory Rate 22 15 Blood Pressure 114/54 L 101/58 L Pulse Oximetry 97 98 Oxygen Delivery Method Room Air Oxygen Flow Rate 1 Narrative Exam Narrative: GENERAL APPEARANCE: well developed, obese female with BMI of 31.8. no acute distress HEENT: Normocephalic, pupils constricted bilaterally, conjunctiva clear, EOMs intact without nystagmus, no rhinorrhea, mucous membranes are moist and pink. NECK/THYROID: neck supple, no JVD, no carotid bruit, no thyromegaly, trachea midline. LYMPH NODES: no cervical or supraclavicular lymphadenopathy. SKIN: [place], warm and dry. HEART: regular rate and rhythm, S1-S2, no murmur, no rubs or gallops, brisk capillary refill, no edema LUNGS: clear to auscultation bilaterally, no coarseness crackles or wheezing, no cough present CHEST: Symmetrical movement, no accessory muscle use ABDOMEN: Soft, no distention, no epigastric or abdominal tenderness, no guarding or peritoneal signs, no organomegaly, hypoactive bowel tones. BACK: Not examined, defer to primary team. EXTREMITIES: moves all extremities, dorsi-plantar flexion is 4-5/5 and symmetrical, no deformities or joint effusions. NEUROLOGIC: AAO to person place and time, no focal neurologic deficits, cranial nerves II-XII grossly intact, sensation intact to light touch, hearing grossly normal to speech. PSYCH: Good eye contact cooperative, appropriate with stable behavior Objective Labs Result Diagrams: 01/10/20 04:40 01/10/20 04:40 Labs: Laboratory Results - last 24 hr 01/10/20 01/10/20 01/10/20 04:31 04:40 04:40 Hgb 10.7 L Hct 33.3 L ABG pH 7.34 L ABG pCO2 49.1 H ABG pO2 106 H ABG HCO3 26 ABG Total CO2 28 ABG O2 Saturation 98 ABG Base Excess 0.0 FiO2 28 Sodium 135 L Potassium 4.9 Chloride 105 Carbon Dioxide 25 BUN 12 Creatinine 0.74 Estimated GFR > 60.0 BUN/Creatinine Ratio 16.2 Glucose 199 H Hemoglobin A1c Calcium 8.8 Total Bilirubin 0.4 AST 44 H ALT 20 Alkaline Phosphatase 43 Total Protein 4.7 L Albumin 3.0 L Globulin 1.7 Albumin/Globulin Ratio 1.8 01/10/20 04:40 Hgb Hct ABG pH ABG pCO2 ABG pO2 ABG HCO3 ABG Total CO2 ABG O2 Saturation ABG Base Excess FiO2 Sodium Potassium Chloride Carbon Dioxide BUN Creatinine Estimated GFR BUN/Creatinine Ratio Glucose Hemoglobin A1c 5.3 Calcium Total Bilirubin AST ALT Alkaline Phosphatase Total Protein Albumin Globulin Albumin/Globulin Ratio Assessment & Plan Assessment & Plan narrative: This is an 87-year-old female patient who is status post L2-3 and L4 3-4 interbody fusion with instrumentation and revision of prior fusion at L4 through S1 with instrumentation today. The patient has received multiple doses pain medication intraoperative as well as receiving 1.5 mg of Dilaudid and recovery. Patient with hypoventilation upon return to ICU requiring close monitoring including oxygen and end-tidal CO2 with frequent cuing by nursing to breathe. Patient received 1 dose Narcan with improvement and respirations. 1. Status post lumbar interbody fusion with instrumentation and revision of prior fusion with instrumentation, active. -defer postoperative management to surgical team. -amend pain management as discussed below. 2. Postoperative respiratory depression and hypercarbic respiratory failure, acute, resolved. -patient had respiratory rate of 9 on supplemental oxygen in end-tidal CO2 monitoring intermittently elevated into the 50s. -nursing at bedside providing frequent cuing to breathe due to apneic pauses and elevated CO2, the patient required a single dose of 0.2 mg Narcan IV with improvement of persistent hypoventilation. -patient smokes 1/2 pack per day, and likely has a component of mild COPD, however she is not wheezing and appears fairly comfortable. She was counseled on smoking cessation, and currently does not want any help but says that she has stopped smoking in the past and thinks that she can do it again. -the patient received 1 g of IV Tylenol at the onset of surgery administered 8:00 a.m. this morning. Ordered schedule Tylenol 975 mg every 8 hours 1st dose now. -ordered oxycodone 5-10 mg every 3 hours as needed pain. -ordered hydromorphone 0.25 mg every hour as needed for breakthrough pain to prevent over-sedation. -ice packs as needed. -discontinued the patient's as needed Xanax 0.5 mg to prevent over-sedation. The patient remains calm, discussed relaxation techniques and provided reassurance. -continue incentive spirometry while awake. 3. Constipation, opiate induced, chronic, active -docusate 100 mg twice daily, senna 17.2 mg daily at bedtime and Dulcolax 10 mg suppository and fleets enema as needed ordered by primary team. -ordered MiraLax 17 g p.o. daily as needed for constipation. Code status: FULL CODE, the patient's is her surrogate decision maker. Thank you for allowing us to participate in the care of this pleasant patient. The medicine team will sign off at this time, please do not hesitate to re-consult or ask the hospitalist team any additional questions.
--- NOTE | 2020-01-10 10:45 | PT.IIE ---
Current Diagnoses Nicotine dependence, unspecified, uncomplicated (01/09/20) Other spondylosis with radiculopathy, lumbosacral region (01/09/20) Spinal stenosis, lumbar region without neurogenic claudication (01/09/20) Other specified personal risk factors, not elsewhere classified (01/09/20) Arthrodesis status (01/09/20) Surgery Performed Operation Date: 01/09/20 08:45 Actual Procedures p L1-2, L2-3, L3-4 TLIF, L4-S1 HWR, L1-S1 PSF W/ Instrumentation - Charles Tapia MD Surgical History (Last Reviewed 01/09/20 @ 21:12 by EDMUND Dumont) History of lumbar spinal fusion (Acute 08/2018) Hx of sinus surgery (Acute) S/P cervical spinal fusion (Acute 04/20/18) Status post colonoscopy Status post colonoscopy Status post hysterectomy Status post trigger finger release (Acute) Medical History (Last Reviewed 01/10/20 @ 04:06 by Martina Carter RN) Chronic constipation (Acute) Chronic cough (Acute) Chronic low back pain (Acute) Current smoker History of rectocele (Acute 03/01/16) Hypothyroidism Osteoarthritis (Acute) Recurrent sinusitis (Acute) DENNIS (stress urinary incontinence, female) (Acute) Physical Therapy Inpatient Evaluation/Re-Eval M1 PT/OT-IP Prior Functional Status Start: 01/10/20 08:54 Freq: NEEDED Status: Active Protocol: Document 01/10/20 10:30 AW (Rec: 01/10/20 13:12 AW [id number]) Medical Review Prior Functional Status Medical History Reviewed Yes Communication WNL. Pt is an effective verbal communicator. Mobility and Gait Pt uses a quad cane for most mobility and a 4WW for longer distances with a max distance of 100 feet. Pt is primarily a household ambulator. Activities of Daily Living and IADL's Pt is independent with all dressing tasks, modified IND for showers with a shower chair, and IND for toileting. Pt does not drive. Social History Household Members spouse Living Arrangements House Number of Floors (Floors) Two Floors Number of Stairs To Enter/Railing? 2 RENEE with no railing. Pt has no need to access the basement when she goes home. Home Environment Standard Height Toilet,Walk in Shower Home Equipment Four Wheel Walker,Quad Cane, Shower Seat with Backrest,Hand Held Shower,Sock Aid,Hospital Bed,Grab Bars In Shower Employment Status Retired Additional Social History Comment Pt lives with her spouse, Patrick , who is also retired and will be available/able to assist as needed at discharge. M2 PT-IP Current Condition Start: 01/10/20 08:54 Freq: NEEDED Status: Active Protocol: Document 01/10/20 10:30 AW (Rec: 01/10/20 13:12 AW [id number]) Physical Therapy Current Condition Current Condition Evaluation Date 01/10/20 Treatment Diagnosis s/p multi-level lumbar surgery ; difficulty in walking Onset Date 01/09/20 Precautions Lumbar Precautions Log Roll,No Twisting,Limit Bending,Lifting Restriction of 10 lbs,Gait Belt above Incisional Area M3 PT-IP Subjective Start: 01/10/20 08:54 Freq: NEEDED Status: Active Protocol: Document 01/10/20 10:30 AW (Rec: 01/10/20 13:12 AW [id number]) Subjective Physical Therapy Visit Type Type Initial Evaluation Visit Start Time 09:53 Visit Stop Time 10:13 Total Visit Minutes 20 Notes Pt's spouse present throughout evaluation. Number of STOPPER MAKER Visits 0 Physical Therapy Visit Comments Patient Comments Pt just finished with OT, is tired but willing to participate with PT Therapy Pain Assessment Pain When Pain Assessed At Rest Pain Present Pain Present Pain Reported Location Lower Back Intensity 8 Scale Used Numeric (0 - 10) Pain Management Techniques Apply Cold,Re-positioning, Timing of Activity with Medications M4 PT-IP Mobility and Gait Start: 01/10/20 08:54 Freq: NEEDED Status: Active Protocol: Document 01/10/20 10:30 AW (Rec: 01/10/20 13:12 AW [id number]) PT-Bed Mobility Assessment Rolling Type of Rolling Log Rolling Level of Assist Contact Guard Assistance Sit to Supine Sit to Supine Contact Guard Assistance,1 Person Assistance PT-Transfer Assessment Sit to and From Stand Sit to and from Stand Minimal Assistance,1 Person Assistance,Use of Upper Extremities Equipment Transfer Assistive Device Gait Belt,Front Wheeled Walker Orthotic/Prosthetic Devices or Brace: No Transfers Transfer Destination Bed Transfer Technique pt ambulated with FWW Transfer Ability Level of Assist Minimal Assistance,1 Person Assistance,Use of Upper Extremities Comments Mobility Comments Pt was sitting up in the chair after finishing with OT when PT arrived. She was able to stand from the chair min A x 1 and walked around the bed with FWW min A x 1 with heavy UE weightbearing noted and assist required to stabilize the walker. Pt sat on the left side of the bed and completed sit to SL CGA to guide her legs into the bed and SL to supine CGA due to increased pain. Pt was positioned on the bed with bed alarm on for safety, call light and all needs within reach, and spouse visiting in room. Gait Assessment Gait Gait Assistance Required: Minimum Assistance,1 Person Assist Distance (Feet) 20 Assistive Devices Assistive Device Gait Belt,Front Wheeled Walker Gait Deviations General Gait Pattern Antalgic,Decreased Stride Length,Decreased Feet Clearance,Flexed Trunk,Step-to Gait Factors Limiting Gait Function Factors Limiting Gait Function Decreased Activity Tolerance, Decreased Sensation,Decreased Strength,Difficulty Following Directions,Limited Range of Motion,Pain,Poor Balance Comments Gait Comments Pt ambulated in the room with FWW min A x 1 due to weak BLE and heavy UE weightbearing. Stair Climbing Assessment Comments Stair Climbing Comments Not assessed. PT-Balance Assessment Sitting Balance and Reactions Static Sitting Balance Ability Normal Dynamic Sitting Balance Ability Normal Standing Balance and Reactions Static Standing Balance Ability Good Dynamic Standing Balance Ability Fair Device Used FWW M5 PT-IP Objective Assessments Start: 01/10/20 08:54 Freq: NEEDED Status: Active Protocol: Document 01/10/20 10:30 AW (Rec: 01/10/20 13:12 AW [id number]) Orientation Orientation/Cognition Level of Alertness Alert Orientation Name,Day of Week,Place, Situation Language Function Ability No Deficits Noted Safety Awareness Understands Safety Issues Memory Description No Deficits Noted Gross Range of Motion Upper Extremity ROM Assessment Within Functional Limits Lower Extremity ROM Assessment Within Functional Limits Strength Upper Extremity Strength Assessment Within Functional Limits Lower Extremity Strength Assessment Bilaterally Impaired Comments Strength Comments BLE grossly 4/5 Coordination Assessment Gross Coordination Gross Coordination WNL Sensation Assessment Sensation Gross Sensation Right LE Impaired,Left LE Impaired Light Touch Impaired Comments Sensation Comments Pt reports dull light touch bilateral anterior thighs Muscle Tone Muscle Tone WNL Yes M6 PT-IP Treatment Start: 01/10/20 08:54 Freq: NEEDED Status: Active Protocol: Document 01/10/20 10:30 AW (Rec: 01/10/20 13:12 AW [id number]) Physical Therapy Treatment Exercises Exercises Ankle Pumps Education Education Provided Precautions,Weight Bearing Status,Post-Op Packet,Safety Other Treatments Other Treatment Performed Provided education on role of PT, plan of care, post-op spinal precautions, and safe use of FWW. M7 PT-IP Assessment and Plan Start: 01/10/20 08:54 Freq: NEEDED Status: Active Protocol: Document 01/10/20 10:30 AW (Rec: 01/10/20 13:12 AW [id number]) PT Summary Assessment and Plan Potential Rehabilitation Potential Good Status of Condition at Evaluation Evolving Summary Impairments Pain,ROM,Strength,Balance, Sensation,Bed Mobility, Transfers,Gait,Activity Tolerance Assessment Summary Gay is a 69 yo woman seen for PT evaluation on POD1 following multi-level lumbar surgery including revision of prior surgery. She is modified independent at baseline with use of quad cane or 4WW for distances up to 100 feet. On evaluation, pt presents with 8 /10 pain, BLE weakness, and dull sensation to bilateral anterior thighs. She required min assist for transfers and short bout ambulation with FWW . PT anticipates she will progress and be safe to discharge home with supportive , capable spouse providing assist once medically cleared. 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 INSTRUCTOR Days to Meet Goals 3 Frequency of Treatment Frequency Of Treatment Twice a Day Treatment Plan Physical Therapy Treatment Plan Bed Mobility Training,Transfer Training,Gait Training, Therapeutic Exercise,Balance Retraining,Post Op Education, Discharge Planning,Hot or Cold Pack Other Recommendations and Next Treatment bed mobility, transfers, gait Focus training with FWW, stairs when able Recommendations To Nursing Amount of Assist Needed 1 Person Assist Discharge Recommendations PT Discharge Recommendations Home with Assistance Equipment Needed for Home Before FWW if unsafe with 4WW Discharge Transportation Needs at Discharge Private Vehicle
[2020-01-10] MEDS: hydrOXYzine pamoate 25 MG CAPSULE PO ×3 (11:03→21:10)
--- NOTE | 2020-01-10 13:12 | PT.IIE ---
Current Diagnoses Nicotine dependence, unspecified, uncomplicated (01/09/20) Other spondylosis with radiculopathy, lumbosacral region (01/09/20) Spinal stenosis, lumbar region without neurogenic claudication (01/09/20) Other specified personal risk factors, not elsewhere classified (01/09/20) Arthrodesis status (01/09/20) Surgery Performed Operation Date: 01/09/20 08:45 Actual Procedures p L1-2, L2-3, L3-4 TLIF, L4-S1 HWR, L1-S1 PSF W/ Instrumentation - Charles Tapia MD Surgical History (Last Reviewed 01/09/20 @ 21:12 by EDMUND Dumont) History of lumbar spinal fusion (Acute 08/2018) Hx of sinus surgery (Acute) S/P cervical spinal fusion (Acute 04/20/18) Status post colonoscopy Status post colonoscopy Status post hysterectomy Status post trigger finger release (Acute) Medical History (Last Reviewed 01/10/20 @ 04:06 by Martina Carter RN) Chronic constipation (Acute) Chronic cough (Acute) Chronic low back pain (Acute) Current smoker History of rectocele (Acute 03/01/16) Hypothyroidism Osteoarthritis (Acute) Recurrent sinusitis (Acute) DENNIS (stress urinary incontinence, female) (Acute) Physical Therapy Inpatient Evaluation/Re-Eval M1 PT/OT-IP Prior Functional Status Start: 01/10/20 08:54 Freq: NEEDED Status: Active Protocol: Document 01/10/20 10:30 AW (Rec: 01/10/20 13:12 AW [id number]) Medical Review Prior Functional Status Medical History Reviewed Yes Communication WNL. Pt is an effective verbal communicator. Mobility and Gait Pt uses a quad cane for most mobility and a 4WW for longer distances with a max distance of 100 feet. Pt is primarily a household ambulator. Activities of Daily Living and IADL's Pt is independent with all dressing tasks, modified IND for showers with a shower chair, and IND for toileting. Pt does not drive. Social History Household Members spouse Living Arrangements House Number of Floors (Floors) Two Floors Number of Stairs To Enter/Railing? 2 RENEE with no railing. Pt has no need to access the basement when she goes home. Home Environment Standard Height Toilet,Walk in Shower Home Equipment Four Wheel Walker,Quad Cane, Shower Seat with Backrest,Hand Held Shower,Sock Aid,Hospital Bed,Grab Bars In Shower Employment Status Retired Additional Social History Comment Pt lives with her spouse, Patrick , who is also retired and will be available/able to assist as needed at discharge. M2 PT-IP Current Condition Start: 01/10/20 08:54 Freq: NEEDED Status: Active Protocol: Document 01/10/20 10:30 AW (Rec: 01/10/20 13:12 AW [id number]) Physical Therapy Current Condition Current Condition Evaluation Date 01/10/20 Treatment Diagnosis s/p multi-level lumbar surgery ; difficulty in walking Onset Date 01/09/20 Precautions Lumbar Precautions Log Roll,No Twisting,Limit Bending,Lifting Restriction of 10 lbs,Gait Belt above Incisional Area M3 PT-IP Subjective Start: 01/10/20 08:54 Freq: NEEDED Status: Active Protocol: Document 01/10/20 10:30 AW (Rec: 01/10/20 13:12 AW [id number]) Subjective Physical Therapy Visit Type Type Initial Evaluation Visit Start Time 09:53 Visit Stop Time 10:13 Total Visit Minutes 20 Notes Pt's spouse present throughout evaluation. Number of CELLOPHANE CASTING MACHINE REPAIRER Visits 0 Physical Therapy Visit Comments Patient Comments Pt just finished with OT, is tired but willing to participate with PT Therapy Pain Assessment Pain When Pain Assessed At Rest Pain Present Pain Present Pain Reported Location Lower Back Intensity 8 Scale Used Numeric (0 - 10) Pain Management Techniques Apply Cold,Re-positioning, Timing of Activity with Medications M4 PT-IP Mobility and Gait Start: 01/10/20 08:54 Freq: NEEDED Status: Active Protocol: Document 01/10/20 10:30 AW (Rec: 01/10/20 13:12 AW [id number]) PT-Bed Mobility Assessment Rolling Type of Rolling Log Rolling Level of Assist Contact Guard Assistance Sit to Supine Sit to Supine Contact Guard Assistance,1 Person Assistance PT-Transfer Assessment Sit to and From Stand Sit to and from Stand Minimal Assistance,1 Person Assistance,Use of Upper Extremities Equipment Transfer Assistive Device Gait Belt,Front Wheeled Walker Orthotic/Prosthetic Devices or Brace: No Transfers Transfer Destination Bed Transfer Technique pt ambulated with FWW Transfer Ability Level of Assist Minimal Assistance,1 Person Assistance,Use of Upper Extremities Comments Mobility Comments Pt was sitting up in the chair after finishing with OT when PT arrived. She was able to stand from the chair min A x 1 and walked around the bed with FWW min A x 1 with heavy UE weightbearing noted and assist required to stabilize the walker. Pt sat on the left side of the bed and completed sit to SL CGA to guide her legs into the bed and SL to supine CGA due to increased pain. Pt was positioned on the bed with bed alarm on for safety, call light and all needs within reach, and spouse visiting in room. Gait Assessment Gait Gait Assistance Required: Minimum Assistance,1 Person Assist Distance (Feet) 20 Assistive Devices Assistive Device Gait Belt,Front Wheeled Walker Gait Deviations General Gait Pattern Antalgic,Decreased Stride Length,Decreased Feet Clearance,Flexed Trunk,Step-to Gait Factors Limiting Gait Function Factors Limiting Gait Function Decreased Activity Tolerance, Decreased Sensation,Decreased Strength,Difficulty Following Directions,Limited Range of Motion,Pain,Poor Balance Comments Gait Comments Pt ambulated in the room with FWW min A x 1 due to weak BLE and heavy UE weightbearing. Stair Climbing Assessment Comments Stair Climbing Comments Not assessed. PT-Balance Assessment Sitting Balance and Reactions Static Sitting Balance Ability Normal Dynamic Sitting Balance Ability Normal Standing Balance and Reactions Static Standing Balance Ability Good Dynamic Standing Balance Ability Fair Device Used FWW M5 PT-IP Objective Assessments Start: 01/10/20 08:54 Freq: NEEDED Status: Active Protocol: Document 01/10/20 10:30 AW (Rec: 01/10/20 13:12 AW [id number]) Orientation Orientation/Cognition Level of Alertness Alert Orientation Name,Day of Week,Place, Situation Language Function Ability No Deficits Noted Safety Awareness Understands Safety Issues Memory Description No Deficits Noted Gross Range of Motion Upper Extremity ROM Assessment Within Functional Limits Lower Extremity ROM Assessment Within Functional Limits Strength Upper Extremity Strength Assessment Within Functional Limits Lower Extremity Strength Assessment Bilaterally Impaired Comments Strength Comments BLE grossly 4/5 Coordination Assessment Gross Coordination Gross Coordination WNL Sensation Assessment Sensation Gross Sensation Right LE Impaired,Left LE Impaired Light Touch Impaired Comments Sensation Comments Pt reports dull light touch bilateral anterior thighs Muscle Tone Muscle Tone WNL Yes M6 PT-IP Treatment Start: 01/10/20 08:54 Freq: NEEDED Status: Active Protocol: Document 01/10/20 10:30 AW (Rec: 01/10/20 13:12 AW [id number]) Physical Therapy Treatment Exercises Exercises Ankle Pumps Education Education Provided Precautions,Weight Bearing Status,Post-Op Packet,Safety Other Treatments Other Treatment Performed Provided education on role of PT, plan of care, post-op spinal precautions, and safe use of FWW. M7 PT-IP Assessment and Plan Start: 01/10/20 08:54 Freq: NEEDED Status: Active Protocol: Document 01/10/20 10:30 AW (Rec: 01/10/20 13:12 AW [id number]) PT Summary Assessment and Plan Potential Rehabilitation Potential Good Status of Condition at Evaluation Evolving Summary Impairments Pain,ROM,Strength,Balance, Sensation,Bed Mobility, Transfers,Gait,Activity Tolerance Assessment Summary Gay is a 69 yo woman seen for PT evaluation on POD1 following multi-level lumbar surgery including revision of prior surgery. She is modified independent at baseline with use of quad cane or 4WW for distances up to 100 feet. On evaluation, pt presents with 8 /10 pain, BLE weakness, and dull sensation to bilateral anterior thighs. She required min assist for transfers and short bout ambulation with FWW . PT anticipates she will progress and be safe to discharge home with supportive , capable spouse providing assist once medically cleared. Goals Bed Mobility Goal Standby Assistance Transfer Goal Standby Assistance,Front Wheeled Walker Gait Goal Standby Assistance,Front Wheel Walker Gait Distance 100 Other Goals - up/down two stairs with quad cane and MACHINE WELT BUTTER Days to Meet Goals 3 Frequency of Treatment Frequency Of Treatment Twice a Day Treatment Plan Physical Therapy Treatment Plan Bed Mobility Training,Transfer Training,Gait Training, Therapeutic Exercise,Balance Retraining,Post Op Education, Discharge Planning,Hot or Cold Pack Other Recommendations and Next Treatment bed mobility, transfers, gait Focus training with FWW, stairs when able Recommendations To Nursing Amount of Assist Needed 1 Person Assist Discharge Recommendations PT Discharge Recommendations Home with Assistance Equipment Needed for Home Before FWW if unsafe with 4WW Discharge Transportation Needs at Discharge Private Vehicle
--- NOTE | 2020-01-10 13:58 | OT.IP.EVAL ---
Current Diagnoses Nicotine dependence, unspecified, uncomplicated (01/09/20) Other spondylosis with radiculopathy, lumbosacral region (01/09/20) Spinal stenosis, lumbar region without neurogenic claudication (01/09/20) Other specified personal risk factors, not elsewhere classified (01/09/20) Arthrodesis status (01/09/20) Surgery Performed Operation Date: 01/09/20 08:45 Actual Procedures p L1-2, L2-3, L3-4 TLIF, L4-S1 HWR, L1-S1 PSF W/ Instrumentation - Charles Tapia MD Past Medical History (Last Reviewed 01/10/20 @ 04:06 by Martina Carter RN) Chronic constipation (Acute) Chronic cough (Acute) Chronic low back pain (Acute) Current smoker History of rectocele (Acute 03/01/16) Hypothyroidism Osteoarthritis (Acute) Recurrent sinusitis (Acute) DENNIS (stress urinary incontinence, female) (Acute) Surgical History (Last Reviewed 01/09/20 @ 21:12 by EDMUND Dumont) History of lumbar spinal fusion (Acute 08/2018) Hx of sinus surgery (Acute) S/P cervical spinal fusion (Acute 04/20/18) Status post colonoscopy Status post colonoscopy Status post hysterectomy Status post trigger finger release (Acute) Occupational Therapy Inpatient Evaluation/Re-Eval M1 PT/OT-IP Prior Functional Status Start: 01/10/20 13:34 Freq: NEEDED Status: Active Protocol: Document 01/10/20 09:04 [facility] (Rec: 01/10/20 13:58 [facility] [id number]) Medical Review Prior Functional Status Medical History Reviewed Yes Communication WNL. Pt is an effective verbal communicator. Mobility and Gait Pt uses a quad cane for most mobility and a 4WW for longer distances with a max distance of 100 feet. Pt is primarily a household ambulator. Activities of Daily Living and IADL's Pt is independent with all dressing tasks, modified IND for showers with a shower chair, and IND for toileting. Pt does not drive. Social History Household Members spouse Living Arrangements House Number of Floors (Floors) Two Floors Number of Stairs To Enter/Railing? 2 RENEE with no railing. Pt has no need to access the basement when she goes home. Home Environment Standard Height Toilet,Walk in Shower Home Equipment Four Wheel Walker,Quad Cane, Shower Seat with Backrest,Hand Held Shower,Sock Aid,Hospital Bed,Grab Bars In Shower Employment Status Retired Additional Social History Comment Pt lives with her spouse, Patrick , who is also retired and will be available/able to assist as needed at discharge. M2 OT-IP Current Condition Start: 01/10/20 13:34 Freq: Status: Active Protocol: Document 01/10/20 09:04 [facility] (Rec: 01/10/20 13:58 [facility] [id number]) Occupational Therapy Current Condition Current Condition Evaluation Date 01/10/20 Treatment Diagnosis Spinal stenosis, s/p L1-2, L2- 3, L3-4 TLIF, L1-S1 PSF Diagnosis Onset Date 01/09/20 Post Operative Precautions Lumbar Precautions Log Roll,No Twisting,Limit Bending,Lifting Restriction of 10 lbs,Gait Belt above Incisional Area M3 OT- IP Subjective and Pain Start: 01/10/20 13:34 Freq: Status: Active Protocol: Document 01/10/20 09:04 [facility] (Rec: 01/10/20 13:58 [facility] [id number]) OT- Subjective Occupational Therapy Visit Type Type Initial Evaluation Visit Start Time 09:04 Visit Stop Time 09:47 Total Visit Minutes 43 Occupational Therapy Visit Comments Patient Comments Pt's in the room for Ot eval. Patient/Caregiver Goals To go home when medically stable. OT Pain Assessment Pain When Pain Assessed During Mobility Pain Present Pain Present Pain Reported Location Lower Back Intensity 10 Scale Used Numeric (0 - 10) Description Stabbing Pain Behaviors Calling Out,Facial Grimacing, Moaning Management Techniques Re-positioning M4 OT- IP ADL's Start: 01/10/20 13:34 Freq: Status: Active Protocol: Document 01/10/20 09:04 [facility] (Rec: 01/10/20 13:58 [facility] [id number]) OT [id number] Comments OT Self-Feeding Comments NOt at meal time. OT ADL-Grooming Comments OT Grooming Comments Educated to hinge at her hips or spit into a cup in order to best follow back precautions. OT ADL-Dressing General Eval Lower Body Dressing Ability Maximum Assistance Comments OT Dressing Comments Pt has all LB dressing equipment from prior surgery and has a supportive to assist. OT ADL-Toileting Comments OT Toileting Comments Pt not having to use the bathroom at this time. Pt states did get 2 toilet paper aids last time but did not like one of them and has not tired the other but was able to manage to do her pericare need by leaning over. OT ADL-Bathing Comments OT Bathing Comments NOt at this time. Pt has a walk in shower with shower chair and HHSP. M5 OT- IP IADL's Start: 01/10/20 13:34 Freq: Status: Active Protocol: Document 01/10/20 09:04 [facility] (Rec: 01/10/20 13:58 [facility] [id number]) OT-Instrumental Activities of Daily Living Home Safety Awareness Awareness of Need for Assistance at Home Good Awareness Medication Management Medication Management Comments Pt a little groggy at this time would be best for her to assist. Money Management Money Management Comments Pt a little groggy at this time would be best for her to assist. Meal Preparation Meal Preparation Caregiver Provides Assist Film Reader Film Reader Caregiver Provides Assist M6 OT- IP Functional Cognition Start: 01/10/20 13:34 Freq: Status: Active Protocol: Document 01/10/20 09:04 [facility] (Rec: 01/10/20 13:58 [facility] [id number]) Cognitive Factors Limiting Selfcare Function Cognitive Ability Level of Alertness Alert,Drowsy Patient Orientation Name,Place,Situation Attention Span Ability Capable of Focused Attention, Capable of Sustained Attention Ability to Follow Commands Able to Follow One Step Commands with Increased Time, Able to Follow One Step Commands with Repetition Safety Awareness Decreased Recall of Precautions,Decreased Ability to Apply Precautions Cognitive Comments Cognitive Assessment Comments Pt groggy from pain medications and needing step by step commands to follow for bed mobility and transfer with FWW. OT- Vision and Hearing OT- Hearing Assessment OT- Hearing Assessment WFL OT- Vision Assessment Visual Acuity Glasses All The Time M7 OT- IP Mobility and Balance Start: 01/10/20 13:34 Freq: Status: Active Protocol: Document 01/10/20 09:04 [facility] (Rec: 01/10/20 13:58 [facility] [id number]) OT- Bed Mobility Assessment Rolling Type of Rolling Roll to Left Level of Assistance Contact Guard Assistance Supine to Sit Supine to Sit Assist Contact Guard Assistance OT-Transfer Assessment Sit to and From Stand Sit to and from Stand Moderate Assistance Transfers Transfer Ability Moderate Assistance Technique Transfer Destination Bed,Chair Transfer Technique Stand Step Pivot Devices Transfer Assistive Devices Gait Belt,Front Wheeled Walker Comments Mobility Comments BP stable in supine and sitting . Pt neeidng use of bed rail to help roll and get upright in addition to CGA. sit ot stand MODA to stand to FWW. Pt legs a bit shaky and needing cues to keep her legs straight and tightened and strong use of her arms on the FWW. MOD Ax1 to transfer assist for steadying of balance and to help ease pt down to the recliner. OT- Gait Assessment Comments Gait Ability Comments Transfer only at this time as pt too tired to attempt more. OT- Balance Assessment Sitting Balance and Reactions Static Sitting Balance Ability Good Dynamic Sitting Balance Ability Fair Standing Balance and Reactions Static Standing Balance Ability Poor M8 OT- IP Objective Assessments Start: 01/10/20 13:34 Freq: Status: Active Protocol: Document 01/10/20 09:04 [facility] (Rec: 01/10/20 13:58 [facility] [id number]) OT Gross Range of Motion Upper Extremity Range of Motion Assessment Within Functional Limits OT Strength Upper Extremity Strength Assessment Within Functional Limits OT-Muscle Tone Assessment Muscle Tone WNL Yes M9 OT- IP Assessment and Plan Start: 01/10/20 13:34 Freq: Status: Active Protocol: Document 01/10/20 09:04 [facility] (Rec: 01/10/20 13:58 [facility] [id number]) OT Summary Assessment and Plan Potential Rehabilitation Potential Good Analytic Complexity at Evaluation Low Summary OT Impairments Pain,Balance,Functional Cognition,Functional Mobility, Grooming,Dressing,Toileting, Bathing,Toilet Transfers, Shower Transfers,Activity Tolerance Progress Towards Goals Slow Progress due to Pain,Slow Progress due to Activity Tolerance,Slow Progress due to Cognition Assessment Summary Pt low complexity and s/p extensive back surgery with main barriers are steps, pain and now needing one person to assist for all ADl and mobility needs. Pt also a bit groggy and not thinking well and needing step by step commands for safety awareness and to help recall and follow back precautions. Pt to go home with when medically stable. OT to work with pt's how to best assist pt for all Adl and functional mobility needs. Goals Grooming Goal Independent Dressing Goal Independent,Long Handled Shoe Horn,Stripper [place]paquer,Sock Aid Toileting Goal Independent Bathing Goal Standby Assistance Toilet Transfer Goal Independent Shower Transfer Goal Standby Assistance Patient/Caregiver Education Goal Demonstrate Post-Op Precautions,Caregiver Independent Assisting Patient Days to Meet Goals 7 Frequency of Treatment Frequency Of Treatment Once a Day Treatment Plan OT Treatment Plan ADL Training,Functional Cognition Training,Functional Mobility,Patient/Family Education,Discharge Planning Other Treatment Recommendations and Next Standing at sink for grooming, Treatment Focus toileting , and caregiver training Discharge Recommendations OT Discharge Recommendations Home with Assistance Home Equipment Needs FWW Transportation Needs at Discharge Private Vehicle
[2020-01-10 14:17] VITALS: BP 121/57; PULSE 101; RESP 16; TEMP 36.8; O2SAT 93
[2020-01-10 15:42] VITALS: BP 115/56; PULSE 106; RESP 16; TEMP 36.4; O2SAT 93
--- NOTE | 2020-01-10 15:59 | PC.NURSE ---
Addendum entered by Monica Alvarado R.N. 01/10/20 21:21: Pt reports sensation returning to thighs BL. Turns onto left side observing log rolling technique and dressing inspected. No change in drainage to back dressing since beginning of this shift. Pt moves head of bed up and down to off load pressure. Pillow under legs. BL calf scd's in place. Call light in pt's hand. Addendum entered by Monica Alvarado R.N. 01/10/20 19:57: Eyes closed lightly snoring with even and unlabored respirations. Neumann to gravity with giovanni colored urine. Addendum entered by Monica Alvarado R.N. 01/10/20 18:44: Drowsy, but rousable. States feels sleepy and is able to rest. Addendum entered by Monica Alvarado R.N. 01/10/20 17:07: Pt reports a little sore after just completing work with P.T. Now currently in bed. Evening dinner tray set up for pt. S.O. with pt. Original Note: Pt awake, alert and appropriately conversant. Admits to full sensation to BL LE's although admits to numbness BL thighs. Is able to move all extremities upon command and independently. Pt log rolls for this senior underwriter to view dressing to back. This has been reinforced per pt and per dayshift report. Scant amount shadowy drainage visible and this was outlined. Dressing orders reviewed and order reads to reinforce as needed. Pt declines ice to back. Rates incisional pain 9/10 and was medicated as per emar. Declines position change stating prefers back-lying position. Neumann to gravity to be removed POD #2 and pt was made aware. BL calf scd's in place. Call light available and encouraged to call for needs. Bed alarm set.
--- NOTE | 2020-01-10 16:47 | PT.IPTN ---
Current Diagnoses Nicotine dependence, unspecified, uncomplicated (01/09/20) Other spondylosis with radiculopathy, lumbosacral region (01/09/20) Spinal stenosis, lumbar region without neurogenic claudication (01/09/20) Other specified personal risk factors, not elsewhere classified (01/09/20) Arthrodesis status (01/09/20) Surgery Performed Operation Date: 01/09/20 08:45 Actual Procedures p L1-2, L2-3, L3-4 TLIF, L4-S1 HWR, L1-S1 PSF W/ Instrumentation - Charles Tapia MD Physical Therapy Treatment Note M2 PT-IP Current Condition Start: 01/10/20 08:54 Freq: NEEDED Status: Active Protocol: Document 01/10/20 16:17 TP (Rec: 01/10/20 17:31 TP [id number]) Physical Therapy Current Condition Current Condition Evaluation Date 01/10/20 Treatment Diagnosis s/p multi-level lumbar surgery ; difficulty in walking Onset Date 01/09/20 Precautions Lumbar Precautions Log Roll,No Twisting,Limit Bending,Lifting Restriction of 10 lbs,Gait Belt above Incisional Area M3 PT-IP Subjective Start: 01/10/20 08:54 Freq: NEEDED Status: Active Protocol: Document 01/10/20 16:17 TP (Rec: 01/10/20 17:31 TP [id number]) Subjective Physical Therapy Visit Type Type Treatment Note Visit Start Time 16:17 Visit Stop Time 16:47 Total Visit Minutes 30 Notes Student KANU Jordan supervised by KANU Servin. Pt's spouse present throughout tx. Number of PUNCHBOARD ASSEMBLER Visits 1 Physical Therapy Visit Comments Patient Comments Pt tired but willing to participate with PT. Pt c/o pain. Therapy Pain Assessment Pain When Pain Assessed At Rest Pain Present Pain Present Pain Reported M4 PT-IP Mobility and Gait Start: 01/10/20 08:54 Freq: NEEDED Status: Active Protocol: Document 01/10/20 16:17 TP (Rec: 01/10/20 17:31 TP [id number]) PT-Bed Mobility Assessment Rolling Type of Rolling Log Rolling Level of Assist Standby Assistance Supine to Sit Supine to Sit Moderate Assistance,1 Person Assistance Sit to Supine Sit to Supine Minimal Assistance,1 Person Assistance Scooting Scooting to Edge of Bed Standby Assistance Scooting Up and Down in Bed Standby Assistance PT-Transfer Assessment Sit to and From Stand Sit to and from Stand Contact Guard Assistance,1 Person Assistance Equipment Transfer Assistive Device Gait Belt,Front Wheeled Walker Orthotic/Prosthetic Devices or Brace: No Transfers Transfer Destination Bed,Chair Transfer Technique pt ambulated with FWW Transfer Ability Level of Assist Contact Guard Assistance, Minimal Assistance,1 Person Assistance,Use of Upper Extremities Comments Mobility Comments Pt supine in bed with HOB elevated. Spouse present visiting with pt. Pt agreeable to participate with PT. Recalled precautions 08/06. Pt bed at home elevates but no rails but stated grabs mattress for self help if needed. Supine with HOB elevated approx 45 deg to sit with L log roll, ModA x1 for assist with trunk support from L sidelying to sit. Sitting balance fair-good, with significant weight through BUE . Sit<>stand FWW, CGA. Weight shifts in standing FWW, CGA. Ambulation in room L side bed round end of bed to chair using FWW, CGA with max BUE support approx 15 ft. Verbal cues for step pivot at chair. Stand to sit FWW, MinAx1 for eccentric control. Seated rest break. Pt respectfully refused offer to ascend/ descend platform step today. Pt preferred to return to bed, feeling pain seated in chair. Sit<>stand FWW, CGA verbal cues needed to push off of chair. Ambulation in room chair to L EOB FWW x15 ft, CGA . Stand to sit L EOB FWW, CGA . Sit to supine with R log roll, Min A x2 for control of trunk and assist with legs onto bed. Pt scooted down in bed SBA to reposition bandage and gown. Pt positioned supine with pillow support under the knees, SCDs turned on. Call light and all other needs within reach. Bed alarm activated for pt safety. Spouse present visiting with patient at completion of tx. Gait Assessment Gait Gait Assistance Required: Contact Guard Assist,Minimum Assistance,1 Person Assist Distance (Feet) 20 Assistive Devices Assistive Device Gait Belt,Front Wheeled Walker Gait Deviations General Gait Pattern Antalgic,Decreased Stride Length,Decreased Feet Clearance,Flexed Trunk,Step-to Gait Factors Limiting Gait Function Factors Limiting Gait Function Decreased Activity Tolerance, Decreased Sensation,Decreased Strength,Difficulty Following Directions,Limited Range of Motion,Pain,Poor Balance Comments Gait Comments See mobility comments. Pt ambulated in the room with FWW CGA-Min A x 1 due to weak BLE and heavy UE weightbearing. Need assess safety of 4WW for home use. Stair Climbing Assessment Comments Stair Climbing Comments Not assessed. Spouse will take picture of 4WW on step at home and bring it in for next tx to assess for safety. PT-Balance Assessment Sitting Balance and Reactions Static Sitting Balance Ability Fair Dynamic Sitting Balance Ability Fair Standing Balance and Reactions Static Standing Balance Ability Good Dynamic Standing Balance Ability Fair Device Used FWW M5 PT-IP Objective Assessments Start: 01/10/20 08:54 Freq: NEEDED Status: Active Protocol: Document 01/10/20 10:30 AW (Rec: 01/10/20 13:12 AW [id number]) Orientation Orientation/Cognition Level of Alertness Alert Orientation Name,Day of Week,Place, Situation Language Function Ability No Deficits Noted Safety Awareness Understands Safety Issues Memory Description No Deficits Noted Gross Range of Motion Upper Extremity ROM Assessment Within Functional Limits Lower Extremity ROM Assessment Within Functional Limits Strength Upper Extremity Strength Assessment Within Functional Limits Lower Extremity Strength Assessment Bilaterally Impaired Comments Strength Comments BLE grossly 4/5 Coordination Assessment Gross Coordination Gross Coordination WNL Sensation Assessment Sensation Gross Sensation Right LE Impaired,Left LE Impaired Light Touch Impaired Comments Sensation Comments Pt reports dull light touch bilateral anterior thighs Muscle Tone Muscle Tone WNL Yes M6 PT-IP Treatment Start: 01/10/20 08:54 Freq: NEEDED Status: Active Protocol: Document 01/10/20 16:17 TP (Rec: 01/10/20 17:31 TP [id number]) Physical Therapy Treatment Education Education Provided Precautions,Weight Bearing Status,Safety Other Treatments Other Treatment Performed Provided education on post-op spinal precautions and safe use of FWW. M7 PT-IP Assessment and Plan Start: 01/10/20 08:54 Freq: NEEDED Status: Active Protocol: Document 01/10/20 16:17 TP (Rec: 01/10/20 17:31 TP [id number]) PT Summary Assessment and Plan Potential Rehabilitation Potential Good Status of Condition at Evaluation Evolving Summary Impairments Pain,ROM,Strength,Balance, Sensation,Bed Mobility, Transfers,Gait,Activity Tolerance Assessment Summary Pt is tired this afternoon and experiencing pain in the back . Denies pain in the LE. Pt able to mobilize with assistance. Bed mobility requires Kemar-ModA for trunk and leg support, with more assist required and the end of treatment due to limited activity tolerance. Pt used 4WW and quad cane at baseline. Pt is not appropriate for use of 4WW at this time, due to max support of BUE during transfers and ambulation. Reassess approriateness of 4WW tomorrow. Pt did not have energy to attempt stairs today . 2 scarlet no rail for entry to house but used QC and LNA prior to surgery. Spouse will measure depth of stairs to determine if FWW/4WW will fit on step. Caregiver training at 10 am tomorrow with for safety gait usign 4WW and stair mgt if able. Goals Bed Mobility Goal Standby Assistance Transfer Goal Standby Assistance,Front Wheeled Walker Gait Goal Standby Assistance,Front Wheel Walker Gait Distance 100 Other Goals - up/down two stairs with quad cane and LNA Days to Meet Goals 3 Frequency of Treatment Frequency Of Treatment Twice a Day Treatment Plan Physical Therapy Treatment Plan Bed Mobility Training,Transfer Training,Gait Training, Therapeutic Exercise,Balance Retraining,Post Op Education, Discharge Planning,Hot or Cold Pack Other Recommendations and Next Treatment bed mobility, transfers, gait Focus training with FWW and 4WW if appropriate, stairs when able, caregiver training 01/10 1000. Recommendations To Nursing Amount of Assist Needed 1 Person Assist Discharge Recommendations PT Discharge Recommendations Home with Assistance Equipment Needed for Home Before FWW if unsafe with 4WW Discharge Transportation Needs at Discharge Private Vehicle
[2020-01-10 21:00] VITALS: BP 113/57; PULSE 97; RESP 18; TEMP 36.9
[2020-01-10] MEDS: SODIUM CHLORIDE 0.9% FLUSH 10 ML IV (21:09)
[2020-01-10] MEDS: SENNOSIDES 8.6 MG TABLET 17.2 MG PO (21:09)
[2020-01-11] VITALS (7 sets, daily range): BP systolic 127–147; BP diastolic 61–71; PULSE 95–105; RESP 14–20; TEMP 36.1–36.9; O2SAT 93–95
[2020-01-11] MEDS: OXYCODONE IR 5 MG TABLET 10 MG PO ×5 (00:19→22:33)
[2020-01-11] MEDS: LEVOTHYROXINE 50 MCG TABLET PO (06:39)
[2020-01-11] MEDS: HYDROMORPHONE 0.5 MG INJ 0.25 MG IV ×2 (07:50→09:17)
[2020-01-11] MEDS: hydrOXYzine pamoate 25 MG CAPSULE PO ×3 (07:53→22:33)
[2020-01-11] MEDS: DULOXETINE 30 MG CAPSULE 60 MG PO (07:53)
[2020-01-11] MEDS: SODIUM CHLORIDE 0.9% FLUSH 10 ML IV ×2 (07:58→22:22)
[2020-01-11] MEDS: DOCUSATE 100 MG CAPSULE PO ×2 (07:58→22:21)
--- NOTE | 2020-01-11 11:40 | PM.PN.1 ---
Exam Vital Signs (past 8 hours): - 01/11/20 04:28 08 07:28 Temperature 97.2 F L 98.4 F Pulse Rate 97 H 98 H Respiratory Rate 16 16 Blood Pressure 134/71 147/71 H Pulse Oximetry 93 94 Oxygen Delivery Method Room Air Oxygen Flow Rate 1 Objective Labs Result Diagrams: 01/10/20 04:40 01/10/20 04:40 Assessment & Plan Assessment & Plan narrative: POD#2 s/p revision lumbar fusion. Patient is progressing with PT. PT/OT both recommend home dischage and patient may benefit from home health. Patient will perform stairs traing and good family support. Will plan to d/c to home once cleared by PT/OT with home health. On exam, patient is neuro intact and dressing clean and dry.
--- NOTE | 2020-01-11 12:09 | CM.DPC ---
Addendum entered by Mary Anne Johnson LPN 01/11/20 12:56: [facility] accepted the referral and can open pt to service on Tuesday, if she does d/c today. If she stays, they can see her on Tuesday. Referral packet is faxed now to [facility]. Will update pt and spouse. Did check in with RN Amanda. She said she did not think pt would go home today. Updated her on the d/c plan with HH. She stated pt's hamilton catheter had not yet been removed and she would follow up on this as well as with the therapy team. P: d/c to home setting when cleared by PT/PT, as per Dr. Tapia, and with [facility]. Original Note: DCP: Continued: case received and spoke just now with Dr. Tapia. He stated that he was putting in a d/c order for home and HH PT/OT but that if pt is not cleared by therapy today he will be keeping her until tomorrow. Face/Face document was completed by Dr. Tapia and pT/OT order obtained. Met then with pt and her Patrick. Both agree that this would be helpful. Pt has not had HH before: agency list: discussed: decision: whichever agency can see pt for the earliest appt. Have a calls out now: will follow and will confirm pt's PCP.
--- NOTE | 2020-01-11 12:32 | PT.IPTN ---
Current Diagnoses Nicotine dependence, unspecified, uncomplicated (01/09/20) Other spondylosis with radiculopathy, lumbosacral region (01/09/20) Spinal stenosis, lumbar region without neurogenic claudication (01/09/20) Other specified personal risk factors, not elsewhere classified (01/09/20) Arthrodesis status (01/09/20) Surgery Performed Operation Date: 01/09/20 08:45 Actual Procedures p L1-2, L2-3, L3-4 TLIF, L4-S1 HWR, L1-S1 PSF W/ Instrumentation - Charles Tapia MD Physical Therapy Treatment Note M2 PT-IP Current Condition Start: 01/10/20 08:54 Freq: NEEDED Status: Active Protocol: Document 01/10/20 16:17 TP (Rec: 01/10/20 17:31 TP [email or web address]) Physical Therapy Current Condition Current Condition Evaluation Date 01/10/20 Treatment Diagnosis s/p multi-level lumbar surgery ; difficulty in walking Onset Date 01/09/20 Precautions Lumbar Precautions Log Roll,No Twisting,Limit Bending,Lifting Restriction of 10 lbs,Gait Belt above Incisional Area M3 PT-IP Subjective Start: 01/10/20 08:54 Freq: NEEDED Status: Active Protocol: Document 01/11/20 11:07 LJ (Rec: 01/11/20 12:32 LJ [email or web address]) Subjective Physical Therapy Visit Type Type Treatment Note Visit Start Time 11:07 Visit Stop Time 11:28 Total Visit Minutes 21 Notes Spouse in room with pt willing to participate in CG training Therapy Pain Assessment Pain When Pain Assessed At Rest Pain Present Pain Present Pain Reported M4 PT-IP Mobility and Gait Start: 01/10/20 08:54 Freq: NEEDED Status: Active Protocol: Document 01/11/20 11:07 LJ (Rec: 01/11/20 12:32 LJ [email or web address]) PT-Bed Mobility Assessment Rolling Type of Rolling Log Rolling Level of Assist Contact Guard Assistance Supine to Sit Supine to Sit Minimal Assistance,1 Person Assistance Sit to Supine Sit to Supine Minimal Assistance,1 Person Assistance Scooting Scooting to Edge of Bed Minimal Assistance Scooting Up and Down in Bed Minimal Assistance PT-Transfer Assessment Sit to and From Stand Sit to and from Stand Contact Guard Assistance,1 Person Assistance Equipment Transfer Assistive Device Gait Belt,Front Wheeled Walker Orthotic/Prosthetic Devices or Brace: No Transfers Transfer Destination Bed Transfer Technique pt ambulated with FWW Transfer Ability Level of Assist Contact Guard Assistance, Minimal Assistance,1 Person Assistance,Use of Upper Extremities Comments Mobility Comments Pt in bed upon arrival. Willing to work with spouse for CG training. Spouse assisted pt with logroll offerring pt to hold onto his UE for her to pull herself to SL position. Spouse assisted pt under armpit for SL to sitting. LIFE CYCLE ASSESSMENT ANALYST demonstrated how spouse can use bed pad to assist pt in scooting to edge of bed. Spouse put gait belt on pt and assisted her to standing by holding the belt and stabilizing the FWW for her to pull on for standing. Pt exited left side of bed. Pt ambulated around foot of bed with CGA from spouse. She demonstrated less UE reliance this session. Pt then returned to bed with assist from spouse in lifting LEs into bed . LIFE CYCLE ASSESSMENT ANALYST and spouse assisted with scooting pt up in bed. Pt able to perform a bridge to straighten bed pad. LIFE CYCLE ASSESSMENT ANALYST demonstrated how to use bed pad for logroll assistance while placing ice bags on pts back. Pt left with call light and spouse in room. Gait Assessment Gait Gait Assistance Required: Contact Guard Assist,1 Person Assist Distance (Feet) 30 Assistive Devices Assistive Device Gait Belt,Front Wheeled Walker Gait Deviations General Gait Pattern Antalgic,Decreased Stride Length,Decreased Feet Clearance Factors Limiting Gait Function Factors Limiting Gait Function Decreased Activity Tolerance, Decreased Strength,Limited Range of Motion,Pain,Poor Balance Comments Gait Comments See mobility section Stair Climbing Assessment Comments Stair Climbing Comments not assessed this session M5 PT-IP Objective Assessments Start: 01/10/20 08:54 Freq: NEEDED Status: Active Protocol: Document 01/10/20 10:30 AW (Rec: 01/10/20 13:12 AW [id number]) Orientation Orientation/Cognition Level of Alertness Alert Orientation Name,Day of Week,Place, Situation Language Function Ability No Deficits Noted Safety Awareness Understands Safety Issues Memory Description No Deficits Noted Gross Range of Motion Upper Extremity ROM Assessment Within Functional Limits Lower Extremity ROM Assessment Within Functional Limits Strength Upper Extremity Strength Assessment Within Functional Limits Lower Extremity Strength Assessment Bilaterally Impaired Comments Strength Comments BLE grossly 4/5 Coordination Assessment Gross Coordination Gross Coordination WNL Sensation Assessment Sensation Gross Sensation Right LE Impaired,Left LE Impaired Light Touch Impaired Comments Sensation Comments Pt reports dull light touch bilateral anterior thighs Muscle Tone Muscle Tone WNL Yes M6 PT-IP Treatment Start: 01/10/20 08:54 Freq: NEEDED Status: Active Protocol: Document 01/11/20 11:07 ROSALVA (Rec: 01/11/20 12:32 LJ [email or web address]) Physical Therapy Treatment Education Education Provided Precautions,Safety M7 PT-IP Assessment and Plan Start: 01/10/20 08:54 Freq: NEEDED Status: Active Protocol: Document 01/11/20 11:07 ROSALVA (Rec: 01/11/20 12:32 LJ [email or web address]) PT Summary Assessment and Plan Potential Rehabilitation Potential Good Status of Condition at Evaluation Evolving Summary Impairments Pain,ROM,Strength,Balance, Sensation,Bed Mobility, Transfers,Gait,Activity Tolerance Assessment Summary Pt able to perform bed mobility with assist of primarily with SL to sit and guiding LEs into bed with sit to SL. Pt and spouse working well together. She had less reliance on UEs with ambulation this session. Goals Bed Mobility Goal Standby Assistance Transfer Goal Standby Assistance,Front Wheeled Walker Gait Goal Standby Assistance,Front Wheel Walker Gait Distance 100 Other Goals - up/down two stairs with 4WW Days to Meet Goals 3 Frequency of Treatment Frequency Of Treatment Twice a Day Treatment Plan Physical Therapy Treatment Plan Bed Mobility Training,Transfer Training,Gait Training, Therapeutic Exercise,Balance Retraining,Post Op Education, Discharge Planning,Hot or Cold Pack Other Recommendations and Next Treatment ascending platform step with Focus 4WW Recommendations To Nursing Amount of Assist Needed 1 Person Assist Discharge Recommendations PT Discharge Recommendations Home with Assistance Equipment Needed for Home Before FWW if unsafe with 4WW Discharge Transportation Needs at Discharge Private Vehicle
--- NOTE | 2020-01-11 13:44 | PT-IP ANOTE ---
Pt reports having been up with to get dressed and is having increased pain. Repositioning and ice not effective in reducing pain. Pt refused any PT and has decided to remain in the hospital one more evening.
--- NOTE | 2020-01-11 13:51 | OT.IPNOTE ---
Pt states too tired and in too much pain and not wanting to try a shower today for caregiver training and states will try tomorrow morning after breakfast for OT session.
--- NOTE | 2020-01-11 14:10 | PC.NURSE ---
Late entry Vital Signs from [employer] Monitor 01/09/20 1645 BP 124/67, HR 95, RR 9, SpO2 100% 01/10/20 0000 BP 123/62, HR 83, RR 20, SpO2 96% 0100 BP 108/56, HR 81, RR 11, SpO2 97% 0200 BP 115/56, HR 78, RR 10, SpO2 97% 0300 BP 112/59, HR 86, RR 14, SpO2 96% 0400 BP 120/60, HR 80, RR 13, SpO2 97% 0500 BP 116/61, HR 76, RR 12, SpO2 96%
--- NOTE | 2020-01-11 14:42 | PC.NURSE ---
Am shift Pt c/o pain with bed mobility. A/o x4, hamilton patent removed after AM PT. Voiding post removal. Oxycodone for pain + vistaril. breakthrough IV dilaudid x2. Able to ambulate in room with PT. IV SL.
[2020-01-11] MEDS: SENNOSIDES 8.6 MG TABLET 17.2 MG PO (22:21)
[2020-01-12] VITALS: BP 133/74; PULSE 109; RESP 16; TEMP 36.6; O2SAT 94
[2020-01-12] MEDS: OXYCODONE IR 5 MG TABLET 10 MG PO ×3 (04:54→12:47)
[2020-01-12 04:58] VITALS: BP 142/76; PULSE 98; RESP 18; TEMP 37.3; O2SAT 95
[2020-01-12] MEDS: LEVOTHYROXINE 50 MCG TABLET PO (06:10)
[2020-01-12 07:44] VITALS: BP 138/65; PULSE 90; RESP 14; TEMP 36.1; O2SAT 93
[2020-01-12] MEDS: hydrOXYzine pamoate 25 MG CAPSULE PO ×2 (08:39→12:47)
[2020-01-12] MEDS: DULOXETINE 30 MG CAPSULE 60 MG PO (08:39)
[2020-01-12] MEDS: DOCUSATE 100 MG CAPSULE PO (08:39)
--- NOTE | 2020-01-12 09:03 | PM.DS.1 ---
History of Present Illness History of Present Illness Date Patient Seen: 01/12/20 Time Patient Seen: 09:04 Chief complaint: TLIF Narrative: The history and physical is contained in the chart previously completed note. Please refer to that note for this information. Discharge Providers Provider Date of admission: 01/09/20 07:40 Discharge Date: 01/12/20 Primary care physician: EDMUND King Consults: 01/09/20 08:14 Consult to Respiratory Therapy Evaluate & Treat Comment: Physician Instructions: Evaluate and treat 01/09/20 16:13 Consult to Respiratory Therapy Evaluate & Treat Comment: Please evaluate and treat for YAKELIN. Pt is s/p TLIF Physician Instructions: Evaluate and treat 01/09/20 16:39 Consult to Internal Medicine Routine Comment: Consulting Provider: Ru Sullivan Reason for consultation: Respiratory suppression Has provider been notified: Yes 01/09/20 16:51 Consult to Internal Medicine Routine Comment: Consulting Provider: Ru Sullivan Reason for consultation: Respiratory suppression Has provider been notified: Yes Consult to Occupational Therapy Evaluate & Treat Comment: Physician Instructions: Evaluate and treat Consult to Physical Therapy Evaluate & Treat Comment: Physician Instructions: Evaluate and Treat 01/11/20 12:17 Consult to Home Health Routine Comment: Reason For Exam: HH PT/OT at d/c Discharge provider: Vinh Cedeño MD Summary Hospital Course Discharge Diagnosis: 1. Lumbar spinal stenosis 2. 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 Status post prior lumbar fusion 4. Post hemorrhagic anemia Exam Vital Signs (past 8 hours): - 01/12/20 04:58 01/12/20 07:44 Temperature 99.2 F 97.0 F L Pulse Rate 98 H 90 Respiratory Rate 18 14 Blood Pressure 142/76 H 138/65 Pulse Oximetry 95 93 Oxygen Delivery Method Room Air Oxygen Flow Rate 0 Narrative Exam Narrative: Light touch and motion are intact in both lower extremities. Calves are soft. Objective Labs Result Diagrams: 01/10/20 04:40 01/10/20 04:40 Discharge Assessment & Plan Assessment and Plan Assessment: Stable postoperative day 3 status post revision lumbar decompression and fusion. The patient is making slow progress with physical therapy. At this point the plan is for her to discharge home with additional home therapy. Follow up will be with Dr. Tapia in approximately 2 weeks. Medications for pain have been provided. Discharge Plan Discharge Plan Patient Disposition: Home Health Service Discharge orders & Medications Prescriptions: New oxycodone 5 mg Tablet 5 - 10 mg PO Q4-5H PRN (Reason: Pain, Severe (7-10)) Qty: 90 RF: 0 hydroxyzine pamoate 25 mg Capsule 25 mg PO Q4HR PRN (Reason: Spasms) Qty: 60 RF: 0 Continued loratadine [Claritin] 10 MG tablet 10 mg PO DAILY PRN (Reason: bronchial allergy) Qty: 0 RF: 0 levothyroxine 50 mcg tablet 50 mcg PO QAM Qty: 90 RF: 0 alprazolam [Xanax] 0.5 mg tablet See Rx Instructions PO TIDP PRN (Reason: anxiety) Qty: 30 RF: 0 duloxetine 60 mg capsule,delayed release(DR/EC) 60 mg PO DAILY Qty: 90 RF: 3 acetaminophen [Tylenol Extra Strength] 500 mg Tablet 1,000 mg PO BID PRN (Reason: pain) RF: 0 Glucosamine-MSM Complex Tablet 1 tab PO BID RF: 0 Follow up/Referrals: Charles Tapia MD [Physician] - 2 Weeks Emperatriz Peters ARNP [Primary Care Provider] - Diet/Activity/Treatments Diet: Diet as Tolerated and Regular Activity: Limit bending twisting Skin/Wound/Dressing Care Report to your healthcare provider any signs of infection, such as:: chills, fever, night sweats, increased pain, unusual drainage and unusual redness Dressing: Keep dressing clean dry intact May shower with dressing covered and kept dry Visit Report/Discharge Packet Instructions: DI for Prescription Opioid Use, DI for Transforaminal Lumbar Interbody Fusion Stand Alone Forms: Surgery Discharge Visit Report Forms: Patient Portal/API, Stroke Signs & Symptoms Discharge Data Primary Care Provider: Emperatriz Peters
--- NOTE | 2020-01-12 10:37 | OT.IP.TRT ---
Current Diagnoses Nicotine dependence, unspecified, uncomplicated (01/09/20) Other spondylosis with radiculopathy, lumbosacral region (01/09/20) Spinal stenosis, lumbar region without neurogenic claudication (01/09/20) Other specified personal risk factors, not elsewhere classified (01/09/20) Arthrodesis status (01/09/20) Surgery Performed Operation Date: 01/09/20 08:45 Actual Procedures p L1-2, L2-3, L3-4 TLIF, L4-S1 HWR, L1-S1 PSF W/ Instrumentation - Charles Tapia MD Occupational Therapy Treatment Note M2 OT-IP Current Condition Start: 01/10/20 13:34 Freq: Status: Active Protocol: Document 01/10/20 09:04 CCC (Rec: 01/10/20 13:58 CCC [id number]) Occupational Therapy Current Condition Current Condition Evaluation Date 01/10/20 Treatment Diagnosis Spinal stenosis, s/p L1-2, L2- 3, L3-4 TLIF, L1-S1 PSF Diagnosis Onset Date 01/09/20 Post Operative Precautions Lumbar Precautions Log Roll,No Twisting,Limit Bending,Lifting Restriction of 10 lbs,Gait Belt above Incisional Area M3 OT- IP Subjective and Pain Start: 01/10/20 13:34 Freq: Status: Active Protocol: Document 01/12/20 11:43 CGR (Rec: 01/12/20 11:45 CGR [email or web address]) OT- Subjective Occupational Therapy Visit Type Type Administrative Note Notes Attempted to see pt for OT services with plan for shower. Pt declined shower, requesting to rest for planned d/c home today. Discussed back precautions, home set up, and caregiver training while in room from [id number]. Pt declined out of bed activities at this time.
--- NOTE | 2020-01-12 11:03 | PT.IPTN ---
Current Diagnoses Nicotine dependence, unspecified, uncomplicated (01/09/20) Other spondylosis with radiculopathy, lumbosacral region (01/09/20) Spinal stenosis, lumbar region without neurogenic claudication (01/09/20) Other specified personal risk factors, not elsewhere classified (01/09/20) Arthrodesis status (01/09/20) Surgery Performed Operation Date: 01/09/20 08:45 Actual Procedures p L1-2, L2-3, L3-4 TLIF, L4-S1 HWR, L1-S1 PSF W/ Instrumentation - Charles Tapia MD Physical Therapy Treatment Note M2 PT-IP Current Condition Start: 01/10/20 08:54 Freq: NEEDED Status: Active Protocol: Document 01/10/20 16:17 TP (Rec: 01/10/20 17:31 TP [email or web address]) Physical Therapy Current Condition Current Condition Evaluation Date 01/10/20 Treatment Diagnosis s/p multi-level lumbar surgery ; difficulty in walking Onset Date 01/09/20 Precautions Lumbar Precautions Log Roll,No Twisting,Limit Bending,Lifting Restriction of 10 lbs,Gait Belt above Incisional Area M3 PT-IP Subjective Start: 01/10/20 08:54 Freq: NEEDED Status: Active Protocol: Document 01/12/20 10:08 ROSALVA (Rec: 01/12/20 11:03 LJ [id number]) Subjective Physical Therapy Visit Type Type Treatment Note Visit Start Time 10:08 Visit Stop Time 10:22 Total Visit Minutes 14 Notes Spouse in room with pt willing to participate in CG training on stair trial Therapy Pain Assessment Pain When Pain Assessed At Rest Pain Present Pain Present Pain Reported M4 PT-IP Mobility and Gait Start: 01/10/20 08:54 Freq: NEEDED Status: Active Protocol: Document 01/12/20 10:08 LJ (Rec: 01/12/20 11:03 LJ [id number]) PT-Bed Mobility Assessment Rolling Type of Rolling Roll to Left Level of Assist Minimal Assistance Sit to Supine Sit to Supine Standby Assistance,Minimal Assistance Scooting Scooting to Edge of Bed Standby Assistance Scooting Up and Down in Bed Standby Assistance PT-Transfer Assessment Sit to and From Stand Sit to and from Stand Standby Assistance,1 Person Assistance,Use of Upper Extremities Equipment Transfer Assistive Device Gait Belt,Front Wheeled Walker Orthotic/Prosthetic Devices or Brace: No Transfers Transfer Destination Bed,Wheelchair Transfer Technique pt ambulated with FWW Transfer Ability Level of Assist Contact Guard Assistance, Minimal Assistance,1 Person Assistance,Use of Upper Extremities Comments Mobility Comments Pt dressed and seated in chair upon arrival. assisted pt to toilet and with dressing. Pt transferred from chair to WC CGA-SBA. Wheeled to stairs for trial. Upon returning to bed pt able to transfer out of chair to bedside SBA-CGA (spouse assisting) and get into bed with Kemar with LEs. assisted pt with placing pillow under knees. Gait Assessment Gait Gait Assistance Required: Contact Guard Assist,1 Person Assist Distance (Feet) 40 Assistive Devices Assistive Device Gait Belt,Front Wheeled Walker Gait Deviations General Gait Pattern Decreased Stride Length, Decreased Feet Clearance Factors Limiting Gait Function Factors Limiting Gait Function Decreased Activity Tolerance, Decreased Strength,Limited Range of Motion,Pain,Poor Balance Comments Gait Comments Pt ambulated in hallway WC following CGA with pt after stair trial ~40' then stated she felt dizzy and needed to sit in the WC. [employer]SEL[employer] wheeled pt back to bed. See bed mobility for comments Stair Climbing Assessment Comments Stair Climbing Comments Pt stood in fromt of platform step and reported it was much higher than the one at her house. She stated she was fearful she would go sliding off the edge and refused to try. showed picture of step and confirmed it to be a much smaller step. Pt will be able to place walker on step and assist just like they did after previous surgery. M5 PT-IP Objective Assessments Start: 01/10/20 08:54 Freq: NEEDED Status: Active Protocol: Document 01/10/20 10:30 AW (Rec: 01/10/20 13:12 AW [id number]) Orientation Orientation/Cognition Level of Alertness Alert Orientation Name,Day of Week,Place, Situation Language Function Ability No Deficits Noted Safety Awareness Understands Safety Issues Memory Description No Deficits Noted Gross Range of Motion Upper Extremity ROM Assessment Within Functional Limits Lower Extremity ROM Assessment Within Functional Limits Strength Upper Extremity Strength Assessment Within Functional Limits Lower Extremity Strength Assessment Bilaterally Impaired Comments Strength Comments BLE grossly 4/5 Coordination Assessment Gross Coordination Gross Coordination WNL Sensation Assessment Sensation Gross Sensation Right LE Impaired,Left LE Impaired Light Touch Impaired Comments Sensation Comments Pt reports dull light touch bilateral anterior thighs Muscle Tone Muscle Tone WNL Yes M6 PT-IP Treatment Start: 01/10/20 08:54 Freq: NEEDED Status: Active Protocol: Document 01/12/20 10:08 ROSALVA (Rec: 01/12/20 11:03 ROSALVA [id number]) Physical Therapy Treatment Exercises Exercises Gluteal Sets,Quad Sets Education Education Provided Precautions,Safety M7 PT-IP Assessment and Plan Start: 01/10/20 08:54 Freq: NEEDED Status: Active Protocol: Document 01/12/20 10:08 ROSALVA (Rec: 01/12/20 11:03 [id number]) PT Summary Assessment and Plan Potential Rehabilitation Potential Good Status of Condition at Evaluation Evolving Summary Impairments Pain,ROM,Strength,Balance, Sensation,Bed Mobility, Transfers,Gait,Activity Tolerance Assessment Summary Pt is moving better this morning. She is still complaining of pain but required less assist for bed mobility and increased her ambulation distance. She is not very motivated to attempt more activity at this point. Stated she just wanted to go home and shower and get in bed . This PT feels she will be able to ascend her step at home with assistance from and will benefit from OP PT. Goals Bed Mobility Goal Standby Assistance Transfer Goal Standby Assistance,Front Wheeled Walker Gait Goal Standby Assistance,Front Wheel Walker Gait Distance 100 Other Goals - up/down two stairs with 4WW Days to Meet Goals 3 Frequency of Treatment Frequency Of Treatment Twice a Day Recommendations To Nursing Amount of Assist Needed 1 Person Assist
--- NOTE | 2020-01-12 12:17 | CM.DPC ---
DCP: continued. Dr. Cedeño was here this morning and ok'd pt for d/c to home with HH as per Dr. Tapia's prior plan. Pt worked with therapists this morning. Checked in now with her and her . JASWANT Patel was just getting pt into a w/c to take pt out to her car in company of her . Assured both that [facility] agency would be updated today and that the expectation was that they would see pt Tuesday or Tuesday. Have called Esther now re the d/c today and have faxed the dc summary. The intake person on for today said she will call pt later today to discuss the HH plan.
--- NOTE | 2020-01-12 12:45 | PC.NURSE ---
AM shift Pt needing encouragement, but able to get up OOB, oxycododne and vistaril for good pain control. Plan to d/c after lunch. IV removed, Pt declined shower. Dressing changed. Medicated for pain and wheeled to private vehicle for d/c home.
== END 2020-01-12 12:50 | disposition home health service (06) | DRG 453 ==
LOC: AC 09:20 → ICU 01-10 11:23 → AC 01-10 14:56
PROVIDERS: Nurse Practitioner Adult Health; Admitting Provider Orthopaedic Surgery Orthopaedic Surgery of the Spine; PCP Internal Medicine; Referring Provider Internal Medicine; Visit Provider Orthopaedic Surgery Orthopaedic Surgery of the Spine
PROC: 0SG10AJ Fusion of 2 or more Lumbar Vertebral Joints with Interbody Fusion Device, Posterior Approach, Anterior Column, Open Approach (ICD-10-PCS; principal; 2020-01-09 08:45)
DX: M47.26 Other spondylosis with radiculopathy, lumbar region (principal); J96.02 Acute respiratory failure with hypercapnia; M96.0 Pseudarthrosis after fusion or arthrodesis; T84.038A Mechanical loosening of other internal prosthetic joint, initial encounter; J95.89 Other postprocedural complications and disorders of respiratory system, not elsewhere classified; M48.061 Spinal stenosis, lumbar region without neurogenic claudication; E03.9 Hypothyroidism, unspecified; F17.210 Nicotine dependence, cigarettes, uncomplicated; M96.1 Postlaminectomy syndrome, not elsewhere classified; I10 Essential (primary) hypertension; K59.03 Drug induced constipation; T40.2X5A Adverse effect of other opioids, initial encounter; Z11.59 Encounter for screening for other viral diseases
CPT/HCPCS: 36415; 36600; 72100; 76000; 80053; 82805; 83036; 85014; 85018; 87635; 97116; 97161; 97165; 97530; C1776; C9290; J0131; J0330; J0690; J1100; J1170; J2310; J2405; J2704; J3010

== ENCOUNTER 2020-02-05 14:45 | Emergency (ER) | payer MEDICARE, SELFPAY ==
[2020-01-09 16:58] VITALS: BMI 31.8
[2020-02-05] VITALS (7 sets, daily range): BP systolic 119–154; BP diastolic 71–77; PULSE 78–89; RESP 24; TEMP 36.9; O2SAT 90–100
--- NOTE | 2020-02-05 15:12 | DI.RAD.S_ITS ---
PROCEDURE: XR ACUTE ABDOMEN SERIES INDICATIONS: SURGERY LAST WEEK, abd bloating, constipation TECHNIQUE: One view chest and two views of the abdomen were acquired. COMPARISON: [facility], CR, XR LUMBAR SPINE 2-3V, 01/09/2020, 9:17. [facility], CR, CHEST 2 VIEW, 05/26/2017, 17:37. FINDINGS: Surgical changes and devices: None. Chest: Lungs are clear. Heart size is normal. No pleural effusions. No pneumoperitoneum. Abdomen: Scattered small bowel and colonic gas. No dilated loops of bowel identified. No suspicious calcifications. Visualized solid organ contours appear normal. Bones: No suspicious bony lesions. ACDF. Lumbar spine fixation hardware. Hardware is stable. IMPRESSION: No acute cardiopulmonary abnormality. Nonobstructive bowel gas pattern. If clinically indicated consider further evaluation with CT abdomen pelvis. Dictated by: Gil Zamora M.D. on 02/05/2020 at 14:46 Approved by: Gil Zamora M.D. on 02/05/2020 at 14:49
[2020-02-05 15:30] LABS: Add Manual Diff / Slide Review NO; Basophils Absolute Auto 100 /uL (0-100); Basophils Percent Auto 1.3 % (0-2); Eosinophils Absolute Auto 100 /uL (0-450); Eosinophils Percent Auto 1.5 % (2-4); Hematocrit 38.4 % (36-46); Hemoglobin 12.4 g/dL (12.0-16.0); Lymphocytes Absolute Auto 1100 /uL (1100-4500); Lymphocytes Percent Auto 14.4 % (25-40); Mean Corpuscular HGB Conc 32.2 % (30-36); Mean Corpuscular Hemoglobin 27.8 PG (26-34); Mean Corpuscular Volume 86.4 fL (80-100); Monocytes Absolute Auto 500 /uL (0-900); Monocytes Percent Auto 7.1 % (3-14); Neutrophils Absolute Auto 5500 /uL (1500-7000); Neutrophils Percent Auto 75.7 % (50-75); Platelet Count 311 X10^3/uL (150-400); Red Blood Cell Count 4.45 X10^6/uL (4.0-5.2); White Blood Cell Count 7.3 X10^3/uL (4.5-11.0)
[2020-02-05 15:40] LABS: Prothrombin Time 11.9 SECONDS (10.1-12.7)
[2020-02-05 15:42] LABS: PTT Partial Thromboplastin Tim 32 SECONDS (26.4-36.2)
[2020-02-05 15:44] LABS: Alanine Aminotransferase 14 IU/L (<35); Albumin 3.8 g/dL (3.5-5.0); Albumin Globulin Ratio 1.7 (1.0-2.8); Alkaline Phosphatase 76 U/L (38-126); Aspartate Aminotransferase 18 IU/L (14-36); BUN Creatinine Ratio 20.8 (6-22); Bilirubin Total 0.4 mg/dL (0.2-1.3); Blood Urea Nitrogen 16 mg/dL (7-17); Calcium 9.2 mg/dL (8.4-10.2); Carbon Dioxide 23 mmol/L (22-32); Chloride 105 mmol/L (98-107); Estimated Glomerular Filt Rate > 60.0 mL/min (>60); Globulin 2.2 g/dL (1.7-4.1); Glucose 131 mg/dL (80-110); HEMOLYSIS < 15 (0-50); Lipase 47 U/L (23-300); Potassium 3.8 mmol/L (3.4-5.1); Sodium 135 mmol/L (137-145)
--- NOTE | 2020-02-05 15:57 | ED.ABDPAIN ---
HPI - Abdominal Pain <Carole Oneill, ANATOMIC PATHOLOGIST-BC - Last Filed: 02/05/20 18:18> General Chief Complaint: Abdominal Pain Stated Complaint: constipated/surgery jan 08/taking oxicodone Time Seen by Provider: 02/05/20 15:01 Source: patient and family Mode of arrival: Ambulatory Limitations: no limitations History of Present Illness HPI narrative: The patient is a 69-year-old female current smoker with history of recent spinal surgery who presents with a chief complaint of abdominal pain with constipation. She states that she had a fusion done by Dr. Tapia on January 08. She was not initially sure exactly which charge worried she had, though chart review illustrate that it was a revision lumbar fusion. She states that she was using oxycodone for pain. However she has not had oxycodone since yesterday. She states she has not had a bowel movement since last week, is not sure if it was early last week or late last week. She states she has felt very constipated for the past 4 days, slight nausea and ?retching.? She did eat a pot pie for dinner last night and has had some groin all of so far today. No fevers, muscle aches or chills. She is concerned about constipation. She has tried taking senna, took 1 docusate today. She has not tried MiraLax, magnesium citrate etcetera. She denies any dysuria urgency or frequency. Related Data Home Medications Medication Instructions Recorded Confirmed loratadine [Claritin] 10 mg PO DAILY PRN #0 04/25/12 01/09/20 acetaminophen [Tylenol Extra 1,000 mg PO BID PRN 04/13/18 01/09/20 Strength] Glucosamine-MSM Complex 1 tab PO BID 04/20/18 01/09/20 Previous Rx's Medication Instructions Recorded duloxetine 60 mg capsule,delayed 60 mg PO DAILY #90 cap 10/24/17 release levothyroxine 50 mcg tablet 50 mcg PO QAM #90 tab 05/11/18 alprazolam 0.5 mg tablet See Rx Instructions PO TIDP PRN 05/24/18 #30 tab hydroxyzine pamoate 25 mg PO Q4HR PRN #60 cap 01/10/20 oxycodone 5 - 10 mg PO Q4-5H PRN #90 tab 08/06/20 ondansetron 4 mg PO Q6H PRN #14 tab 02/05/20 Allergies Allergy/AdvReac Type Severity Reaction Status Date / Time No Known Drug Allergies Allergy Verified 01/09/20 08:05 Review of Systems <DEIDRA Stewart - Last Filed: 02/05/20 18:18> Review of Systems Narrative: GENERAL: Denies chills, fatigue, malaise, fever, sweats. HEENT: Denies sinus pain, ear pain, sore throat, difficulty swallowing, dizziness. RESPIRATORY: Denies dyspnea, cough, wheezing, hemoptysis, sputum. CARDIOVASCULAR: Denies chest pain, palpitations, orthopnea, edema, GASTROINTESTINAL: Denies nausea, vomiting, abdominal pain, diarrhea, constipation, melena. : Denies dysuria, frequency, incontinence, hematuria, urinary retention. MUSCULOSKELETAL: See HPI SKIN: Denies rash, skin lesions, or other NEUROLOGIC: Denies weakness, headache, numbness, change in speech, confusion, seizures, incoordination. PSYCHIATRIC: No concerning psychosocial issues. 12 point review of systems is negative except for those stated above Patient History <DEIDRA Stewart - Last Filed: 02/05/20 18:18> Medical History (Updated 02/05/20 @ 17:06 by DEIDRA Stewart) Chronic constipation (Acute) Chronic cough (Acute) Chronic low back pain (Acute) Current smoker History of rectocele (Acute 03/01/16) Hypothyroidism Osteoarthritis (Acute) Recurrent sinusitis (Acute) DENNIS (stress urinary incontinence, female) (Acute) Surgical History History of lumbar spinal fusion (Acute 08/2018) Hx of sinus surgery (Acute) S/P cervical spinal fusion (Acute 04/20/18) Status post colonoscopy Status post colonoscopy Status post hysterectomy Status post trigger finger release (Acute) Family History Brother Age: 72 Diabetes mellitus Father Diabetes mellitus Mother Mental health problem Grandfather Cancer Social History household members: spouse Smoking Status: Current every day smoker alcohol intake: never Smoking Status: Current every day smoker alcohol intake frequency: holidays/special occasions only Substance Use Type: does not use Exam <DEIDRA Stewart - Last Filed: 02/05/20 18:18> Narrative Exam Narrative: GENERAL: This is a well-nourished, well-developed patient, in no acute distress HEAD: Atraumatic. Normocephalic. No temporal or scalp tenderness. EYES: Pupils equal round and reactive. Extraocular motions intact. No scleral icterus. No injection or drainage. ENT: Nose without bleeding, purulent drainage or septal hematoma. Wearing a mask. Airway patent. NECK: Trachea midline. No JVD or lymphadenopathy. Supple, nontender, no meningeal signs. CARDIOVASCULAR: Regular rate and rhythm without murmurs, gallops, or rubs. RESPIRATORY: Clear to auscultation. Breath sounds equal bilaterally. No wheezes, rales, or rhonchi. No cough. No increased respiratory effort. No accessory muscle use. GASTROINTESTINAL: Abdomen soft, diffusely tender, nondistended. No hepato-splenomegaly, or palpable masses. No guarding. Active bowel sounds all 4 quadrants EXTREMITIES: No clubbing, cyanosis, or edema. No joint tenderness, effusion, or edema noted. BACK: Nontender without deformity or crepitance. No flank tenderness. NEURO: AOx3. SKIN: No rash or erythema. Initial Vital Signs Initial Vital Signs: Vital Signs Temperature 98.5 F 02/05/20 14:51 Pulse Rate 87 02/05/20 14:51 Respiratory Rate 24 02/05/20 14:51 Blood Pressure 154/73 H 02/05/20 14:51 Pulse Oximetry 100 02/05/20 14:51 <Marisol Bazan DO - Last Filed: 02/06/20 10:03> Initial Vital Signs Initial Vital Signs: Vital Signs Temperature 98.5 F 02/05/20 14:51 Pulse Rate 87 02/05/20 14:51 Respiratory Rate 24 02/05/20 14:51 Blood Pressure 154/73 H 02/05/20 14:51 Pulse Oximetry 100 02/05/20 14:51 Course <DEIDRA Stewart - Last Filed: 02/05/20 18:18> Orders Ordered: Discontinued Medications Magnesium Citrate (Magnesium Citrate) 300 ml PO NOW ONE Stop: 02/05/20 16:32 Last Admin: 02/05/20 17:01 Dose: 300 ml Documented by: FRANCISCO J Ondansetron HCl (Zofran) 4 mg IV NOW ONE Stop: 02/05/20 15:55 Last Admin: 02/05/20 16:05 Dose: 4 mg Documented by: ASHLEY Vital Signs Vital signs: Vital Signs - 8 hr 02/05/20 14:51 02/05/20 15:00 02/05/20 15:30 Temperature 98.5 F Pulse Rate 87 86 78 Respiratory Rate 24 Blood Pressure 154/73 H 127/75 Pulse Oximetry 100 97 97 02/05/20 15:54 02/05/20 16:00 02/05/20 16:30 Temperature Pulse Rate 83 89 82 Respiratory Rate Blood Pressure 119/71 129/77 128/71 Pulse Oximetry 94 90 L 95 02/05/20 17:00 Temperature Pulse Rate 85 Respiratory Rate Blood Pressure 123/71 Pulse Oximetry 99 <Marisol Bazan DO - Last Filed: 02/06/20 10:03> Orders Ordered: Discontinued Medications Magnesium Citrate (Magnesium Citrate) 300 ml PO NOW ONE Stop: 02/05/20 16:32 Last Admin: 02/05/20 17:01 Dose: 300 ml Documented by: FRANCISCO J Ondansetron HCl (Zofran) 4 mg IV NOW ONE Stop: 02/05/20 15:55 Last Admin: 02/05/20 16:05 Dose: 4 mg Documented by: ASHLEY Vital Signs Vital signs: Vital Signs - 8 hr 02/05/20 14:51 02/05/20 15:00 02/05/20 15:30 Temperature 98.5 F Pulse Rate 87 86 78 Respiratory Rate 24 Blood Pressure 154/73 H 127/75 Pulse Oximetry 100 97 97 02/05/20 15:54 02/05/20 16:00 02/05/20 16:30 Temperature Pulse Rate 83 89 82 Respiratory Rate Blood Pressure 119/71 129/77 128/71 Pulse Oximetry 94 90 L 95 02/05/20 17:00 Temperature Pulse Rate 85 Respiratory Rate Blood Pressure 123/71 Pulse Oximetry 99 MDM - Abdominal Pain <DEIDRA Stewart - Last Filed: 02/05/20 18:18> Lab Data Attestation: I reviewed the patient's lab results. Result diagrams: 02/05/20 15:15 02/05/20 15:15 Labs: Lab Results 02/05/20 02/05/20 02/05/20 Range/Units 15:15 15:15 15:15 WBC 7.3 (4.5-11.0) X10^3/uL RBC 4.45 (4.0-5.2) X10^6/uL Hgb 12.4 (12.0-16.0) g/dL Hct 38.4 (36-46) % MCV 86.4 (80-100) fL MCH 27.8 (26-34) PG MCHC 32.2 (30-36) % RDW 14.0 (11.6-14.8) % Plt Count 311 (150-400) X10^3/uL Neut % (Auto) 75.7 H (50-75) % Lymph % (Auto) 14.4 L (25-40) % [place] % (Auto) 7.1 (3-14) % Eos % (Auto) 1.5 L (2-4) % Baso % (Auto) 1.3 (0-2) % Neut # (Auto) 5500 (4579-3521) /uL Lymph # (Auto) 1100 (1860-0220) /uL [place] # (Auto) 500 (0-900) /uL Eos # (Auto) 100 (0-450) /uL Baso # (Auto) 100 (0-100) /uL PT 11.9 (10.1-12.7) SECONDS INR 1.0 (0.9-1.3) APTT 32 (26.4-36.2) SECONDS Sodium 135 L (137-145) mmol/L Potassium 3.8 (3.4-5.1) mmol/L Chloride 105 (98-107) mmol/L Carbon Dioxide 23 (22-32) mmol/L BUN 16 (7-17) mg/dL Creatinine 0.77 (0.52-1.04) mg/dL Estimated GFR > 60.0 (>60) mL/min BUN/Creatinine Ratio 20.8 (6-22) Glucose 131 H (80-110) mg/dL Calcium 9.2 (8.4-10.2) mg/dL Total Bilirubin 0.4 (0.2-1.3) mg/dL AST 18 (14-36) IU/L ALT 14 (<35) IU/L Alkaline Phosphatase 76 (38-126) U/L Total Protein 6.0 L (6.3-8.2) g/dL Albumin 3.8 (3.5-5.0) g/dL Globulin 2.2 (1.7-4.1) g/dL Albumin/Globulin Ratio 1.7 (1.0-2.8) Lipase 47 (23-300) U/L Imaging Data Abdominal x-ray: Radiologist's Impression: [address] [place] [id number] XRay Report Signed Patient: Rosi Carrillo MMR#: [id number] : [id number]:[id number] Age/Sex: 69 / FDate of Service: 02/05/20 Loc: ED Accession Number: [id number] Procedure: XR acute abdomen series Ordering Provider: Carole Oneill PROCEDURE: XR ACUTE ABDOMEN SERIES INDICATIONS: SURGERY LAST WEEK, abd bloating, constipation TECHNIQUE: One view chest and two views of the abdomen were acquired. COMPARISON: [facility], , XR LUMBAR SPINE 2-3V, 01/09/2020, 9:17. [facility], , CHEST 2 VIEW, 05/26/2017, 17:37. FINDINGS: Surgical changes and devices: None. Chest: Lungs are clear. Heart size is normal. No pleural effusions. No pneumoperitoneum. Abdomen: Scattered small bowel and colonic gas. No dilated loops of bowel identified. No suspicious calcifications. Visualized solid organ contours appear normal. Bones: No suspicious bony lesions. ACDF. Lumbar spine fixation hardware. Hardware is stable. IMPRESSION: No acute cardiopulmonary abnormality. Nonobstructive bowel gas pattern. If clinically indicated consider further evaluation with CT abdomen pelvis. Dictated by: Gil Zamora M.D. on 02/05/2020 at 14:46 Approved by: Gil Zamora M.D. on 02/05/2020 at 14:49 MDM Narrative Medical decision making narrative: The patient is a 69-year-old female who presents with a chief complaint of constipation. Her abdominal x-ray shows no acute bowel obstruction, she does not have an acute abdomen on exam. Her vitals are benign, her lab work is grossly benign with no leukocytosis. I offered the patient an enema in the emergency department, but she would rather go home intake magnesium citrate, which we provided for her. I did discuss at length use of senna, docusate, MiraLax, and other things to help get her bowels moving. I discussed coming back to the emergency department for any acute concerns such as inability keep down fluids, abdominal pain with fever. I encouraged her to follow up with primary care provider for re-evaluation in a few days as well as her surgeon. Encouraged her to continue not taking narcotics. Overall patient appears well and nontoxic throughout her stay in the emergency department. Patient and have no questions or concerns upon discharge and state understanding of return precautions as well as follow-up care. <Marisol Bazan, DO - Last Filed: 02/06/20 10:03> Lab Data Labs: Lab Results 02/05/20 02/05/20 02/05/20 Range/Units 15:15 15:15 15:15 WBC 7.3 (4.5-11.0) X10^3/uL RBC 4.45 (4.0-5.2) X10^6/uL Hgb 12.4 (12.0-16.0) g/dL Hct 38.4 (36-46) % MCV 86.4 (80-100) fL MCH 27.8 (26-34) PG MCHC 32.2 (30-36) % RDW 14.0 (11.6-14.8) % Plt Count 311 (150-400) X10^3/uL Neut % (Auto) 75.7 H (50-75) % Lymph % (Auto) 14.4 L (25-40) % [place] % (Auto) 7.1 (3-14) % Eos % (Auto) 1.5 L (2-4) % Baso % (Auto) 1.3 (0-2) % Neut # (Auto) 5500 (4915-4545) /uL Lymph # (Auto) 1100 (7935-7069) /uL [place] # (Auto) 500 (0-900) /uL Eos # (Auto) 100 (0-450) /uL Baso # (Auto) 100 (0-100) /uL PT 11.9 (10.1-12.7) SECONDS INR 1.0 (0.9-1.3) APTT 32 (26.4-36.2) SECONDS Sodium 135 L (137-145) mmol/L Potassium 3.8 (3.4-5.1) mmol/L Chloride 105 (98-107) mmol/L Carbon Dioxide 23 (22-32) mmol/L BUN 16 (7-17) mg/dL Creatinine 0.77 (0.52-1.04) mg/dL Estimated GFR > 60.0 (>60) mL/min BUN/Creatinine Ratio 20.8 (6-22) Glucose 131 H (80-110) mg/dL Calcium 9.2 (8.4-10.2) mg/dL Total Bilirubin 0.4 (0.2-1.3) mg/dL AST 18 (14-36) IU/L ALT 14 (<35) IU/L Alkaline Phosphatase 76 (38-126) U/L Total Protein 6.0 L (6.3-8.2) g/dL Albumin 3.8 (3.5-5.0) g/dL Globulin 2.2 (1.7-4.1) g/dL Albumin/Globulin Ratio 1.7 (1.0-2.8) Lipase 47 (23-300) U/L Discharge Plan Departure Patient Disposition: Home Clinical Impression: Constipation Qualifiers: Constipation type: unspecified constipation type Qualified Code(s): K59.00 - Constipation, unspecified Discharge Date/Time: 02/05/20 17:15 Instructions: DI for Constipation Activity Restrictions/Additional Instructions: Thank you for trusting us with your care today. Your imaging and lab work came back reassuring. Given that you have not had a bowel movement since last week, I anticipate that you would feel better if we can get your bowels moving. We have sent you home with magnesium citrate. This should help get things going. Other things I suggest: MiraLax once per day, docusate twice per day, you can use senna as needed. Docusate or Colace is a stool softener. This will not help move things along but will make things easier to move. Senna is a laxative. This helps move things along. Please take this with plenty of fluids. You can also use an enema such as fleets enema or Dulcolax suppository You can use the old nursing trick of warm applesauce, with warm prune juice and a tab of butter on top Please follow-up with primary care provider in the next few days Please come back to the emergency department for any acute concerns such as abdominal pain with fever, inability keep down fluids Prescriptions: New ondansetron 4 mg tablet,disintegrating 4 mg PO Q6H PRN (Reason: nausea and vomiting) Qty: 14 RF: 0 No Action loratadine [Claritin] 10 MG tablet 10 mg PO DAILY PRN (Reason: bronchial allergy) Qty: 0 RF: 0 levothyroxine 50 mcg tablet 50 mcg PO QAM Qty: 90 RF: 0 alprazolam [Xanax] 0.5 mg tablet See Rx Instructions PO TIDP PRN (Reason: anxiety) Qty: 30 RF: 0 duloxetine 60 mg capsule,delayed release(DR/EC) 60 mg PO DAILY Qty: 90 RF: 3 acetaminophen [Tylenol Extra Strength] 500 mg Tablet 1,000 mg PO BID PRN (Reason: pain) RF: 0 Glucosamine-MSM Complex Tablet 1 tab PO BID RF: 0 oxycodone 5 mg Tablet 5 - 10 mg PO Q4-5H PRN (Reason: Pain, Severe (7-10)) Qty: 90 RF: 0 hydroxyzine pamoate 25 mg Capsule 25 mg PO Q4HR PRN (Reason: Spasms) Qty: 60 RF: 0 Referrals: Emperatriz Peters ARNP [Primary Care Provider] - <Marisol Bazan DO - Last Filed: 02/06/20 10:03> [facility] Robbie Attestation: I was immediately available in the department for consultation. Documentation has been reviewed. I agree with assessment and plan.
[2020-02-05] MEDS: ONDANSETRON 4 MG/2 ML INJ IV (16:05)
[2020-02-05] MEDS: MAGNESIUM CITRATE 300 ML SOLUTION PO (17:01)
== END 2020-02-05 17:15 | disposition home or self-care (01) ==
PROVIDERS: Emergency Provider Nurse Practitioner Family; PCP Internal Medicine
DX: K59.00 Constipation, unspecified (principal); R10.9 Unspecified abdominal pain
CPT/HCPCS: 36415; 74022; 80053; 83690; 85025; 85610; 85730; 96374; 99284; J2405

== ENCOUNTER → 2020-08-15 09:40 | Outpatient (CLI) | payer MEDICARE, SELFPAY ==
[2020-01-09 16:58] VITALS: BMI 31.8
[2020-08-15] MEDS: COVID-19 VACC, Ad26(JANSSEN)/PF 0.5 ML IM (09:49)
== END ==
PROVIDERS: PCP Internal Medicine; Visit Provider Internal Medicine
DX: Z23 Encounter for immunization (principal)
CPT/HCPCS: 0031A; 91303

== ENCOUNTER → 2020-12-18 14:37 | Outpatient (CLI) | payer MEDICARE, SELFPAY ==
[2020-01-09 16:58] VITALS: BMI 31.8
== END ==
PROVIDERS: PCP Internal Medicine; Referring Provider Internal Medicine; Visit Provider Internal Medicine
DX: M81.0 Age-related osteoporosis without current pathological fracture (principal); Z78.0 Asymptomatic menopausal state; E07.9 Disorder of thyroid, unspecified; Z72.0 Tobacco use; Z82.62 Family history of osteoporosis
CPT/HCPCS: 77080

== ENCOUNTER → 2020-12-27 08:51 | Outpatient (CLI) | payer MEDICARE, SELFPAY ==
[2020-01-09 16:58] VITALS: BMI 31.8
--- NOTE | 2020-12-27 08:53 | DI.MG.S_ITS ---
BILATERAL DIGITAL SCREENING MAMMOGRAM 3D/2D WITH CAD: 12/27/2020 CLINICAL: Routine screening. Family history of breast cancer. Comparison is made to exams dated: 02/08/2017 mammogram, 12/17/2015 mammogram, and 09/25/2014 mammogram - [facility]. The tissue of both breasts is heterogeneously dense. This may lower the sensitivity of mammography. Current study was also evaluated with a Computer Aided Detection (CAD) system. There is a biopsy clip in the left breast. No significant masses, calcifications, or other findings are seen in either breast. There has been no significant interval change. IMPRESSION: NEGATIVE There is no mammographic evidence of malignancy. A 1 year screening mammogram is recommended. This exam was interpreted at Station ID: [id number]. NOTE: For mammograms, a report in lay terms will be sent to the patient. Approximately 15% of breast malignancies will not be visualized mammographically. In the management of a palpable breast mass, a negative mammogram must not discourage biopsy of a clinically suspicious lesion. Electronically Signed By: Mick gu/cuco:12/29/2020 09:06:35 letter sent: Normal Exam ACR BI-RADS Category 1: Negative 3341F
== END ==
PROVIDERS: PCP Internal Medicine; Referring Provider Internal Medicine; Visit Provider Internal Medicine
DX: Z12.31 Encounter for screening mammogram for malignant neoplasm of breast (principal); Z80.3 Family history of malignant neoplasm of breast
CPT/HCPCS: 77063; 77067

== ENCOUNTER → 2021-04-17 08:32 | Outpatient (CLI) | payer MEDICARE, SELFPAY ==
[2020-01-09 16:58] VITALS: BMI 31.8
[2021-04-17] MEDS: COVID-19 VACC #3, MRNA(MOD) 50 MCG/0.25 ML VIAL IM (08:39)
== END ==
PROVIDERS: PCP Internal Medicine; Visit Provider Internal Medicine
DX: Z23 Encounter for immunization (principal)
CPT/HCPCS: 0013A; 91301

== ENCOUNTER → 2022-11-10 17:27 | Outpatient (CLI) | payer MEDICARE, SELFPAY ==
[2020-01-09 16:58] VITALS: BMI 31.8
== END ==
PROVIDERS: PCP Internal Medicine; Visit Provider Nurse Practitioner Family
DX: J02.9 Acute pharyngitis, unspecified (principal)
CPT/HCPCS: 87070

== ENCOUNTER → 2023-04-29 09:44 | Outpatient (CLI) | payer MEDICARE, SELFPAY ==
[2020-01-09 16:58] VITALS: BMI 31.8
--- NOTE | 2023-04-29 09:47 | DI.RAD.S_ITS ---
Bone Density Report Name: DAYANNA SOW Age: 73 Sex: Female Ethnicity: White Date of : 1950 Indication: osteopenia; parental hip fracture; Referring Provider: CITLALY GOULD Study: Bone densitometry was performed. Exam Date: April 29, 2023 Accession number: [id number] Bone Density: Region BMD T-score Z-score Classification Femoral Neck (Left) 0.612 -2.1 -0.2 Osteopenia Total Hip (Left) 0.739 -1.7 0.0 Osteopenia Femoral Neck (Right) 0.620 -2.1 -0.1 Osteopenia Total Hip (Right) 0.756 -1.5 0.1 Osteopenia Total Hip Mean 0.748 -1.6 0.1 Osteopenia Total Forearm (Left) 0.437 -2.6 -0.5 Osteoporosis 1/3 Forearm (Left) 0.519 -2.9 -0.6 Osteoporosis UD Forearm (Left) 0.347 -1.7 0.0 Osteopenia World Health Organization criteria for BMD impression classify patients as: Normal (T-score at or above -1.0), Osteopenia (T-score between -1.0 and -2.5), or Osteoporosis (T-score at or below -2.5). 10-year Fracture Risk(1): Major Osteoporotic Fracture 22% Hip Fracture 12% Reported Risk Factors: [place] (), Neck BMD=0.612, BMI=32.1, parental fracture, smoking (1) FRAX(R) Version 3.08. Fracture probability calculated for an untreated patient. Fracture probability may be lower if the patient has received treatment. Previous Exams: -- Region Exam Age BMD T-score BMD Change BMD Change Date g/cm2 vs Baseline vs Previous -- Total Hip(Left) 04/29/2023 73 0.739 -1.7 -0.078 (-9.5%)# -0.006 (-0.8%)# 12/18/2020 70 0.745 -1.6 -0.072 (-8.8%)* -0.080 (-9.7%)* 03/12/2016 66 0.825 -1.0 0.008 (1.0%) 0.008 (1.0%) 11/30/2004 54 0.817 -1.0 Total Hip(Right) 04/29/2023 73 0.756 -1.5 -0.085 (-10.1%)# 0.000 (0.0%)# 12/18/2020 70 0.756 -1.5 -0.084 (-10.0%)* -0.111 (-12.8%)* 03/12/2016 66 0.867 -0.6 0.027 (3.2%) 0.027 (3.2%) 11/30/2004 54 0.841 -0.8 -- *Denotes significance at 95% confidence level, LSC for Total Hip = 0.027 g/cm2 # Denotes dissimilar scan types or analysis methods Impression: The patient has low bone mass, based on the Left Femoral Neck T-score. The patient has an estimated ten-year risk of hip fracture of 12% and an estimated ten-year risk of major fracture of 22%, based on the WHO FRAX algorithm. The patient has risk factors, including: parental hip fracture, smoking. No significant bone loss was observed. Discussion: BONE DENSITY IS LOW AT ONE OR MORE SKELETAL SITES. THE PATIENT'S BMD AND CLINICAL RISK FACTORS CONTRIBUTE TO THIS PATIENT'S HIGH RISK OF FRACTURE. This patient's lowest T-score is low at one or more skeletal sites. It meets the World Health Organization's (WHO) criteria for low bone mass (T-score between -1.0 and -2.5). The patient's 10-year risk of hip fracture and 10 year risk of a major osteoporotic fracture as calculated by FRAX exceeds the threshold where pharmacological therapy is recommended by the National Osteoporosis Foundation (NOF). However, all treatment decisions require clinical judgment and consideration of individual patient factors, including patient preferences, comorbidities, previous drug use, risk factors not captured in the FRAX model (e.g., frailty, falls, vitamin D deficiency, increased bone turnover, interval significant decline in bone density) and possible under or overestimation of fracture risk by FRAX. The patient should follow a healthful lifestyle (good nutrition with adequate calcium and vitamin D, and appropriate weight-bearing exercise). Follow-Up: Consider a repeat BMD and Vertebral Fracture Assessment (VFA) exam in 2 years or sooner if medically necessary, to reassess this patient's status. Reported by: [facility] PÉREZ M.D. on 04/29/2023 11:06:00 AM.
--- NOTE | 2023-04-29 09:47 | DI.MG.S_ITS ---
BILATERAL DIGITAL SCREENING MAMMOGRAM 3D/2D WITH CAD: 04/29/2023 CLINICAL: Routine screening. Family history of breast cancer. Comparison is made to exams dated: 12/27/2020 mammogram, 02/08/2017 mammogram, and 12/17/2015 mammogram - [facility]. Both breasts are heterogeneously dense, which may obscure small masses (category c / 51-75% glandular tissue). Current study was also evaluated with a Computer Aided Detection (CAD) system. There is a biopsy clip in the left breast. No significant masses, calcifications, or other findings are seen in either breast. There has been no significant interval change. IMPRESSION: NEGATIVE There is no mammographic evidence of malignancy. A 1 year screening mammogram is recommended. Based on the Tyrer Cuzick model (a risk assessment model) the patient's lifetime risk is 4.6% and her 10 year risk is 3.4%. According to the ACR, ACS, and NCCN guidelines, an annual breast MRI exam along with mammogram is recommended if the patient's lifetime risk is 20% or greater. This exam was interpreted at Station ID: [id number]. NOTE: For mammograms, a report in lay terms will be sent to the patient. Approximately 15% of breast malignancies will not be visualized mammographically. In the management of a palpable breast mass, a negative mammogram must not discourage biopsy of a clinically suspicious lesion. Electronically Signed By: Gil callejas/cuco:04/29/2023 17:43:57 letter sent: Normal Exam ACR BI-RADS Category 1: Negative 3341F
== END ==
PROVIDERS: PCP Internal Medicine; Referring Provider Internal Medicine; Visit Provider Internal Medicine
DX: Z12.31 Encounter for screening mammogram for malignant neoplasm of breast (principal); M81.0 Age-related osteoporosis without current pathological fracture; N95.1 Menopausal and female climacteric states; Z80.3 Family history of malignant neoplasm of breast; M85.89 Other specified disorders of bone density and structure, multiple sites
CPT/HCPCS: 77063; 77067; 77080; 77081

== ENCOUNTER 2023-11-04 16:57 | Observation (INO) | payer MEDICARE, SELFPAY ==
[2020-01-09 16:58] VITALS: BMI 31.8
[2023-11-04 17:09] VITALS: BP 109/74; PULSE 77; RESP 19; TEMP 36.4; O2SAT 97; BMI 33.0
[2023-11-04 17:31] LABS: Add Manual Diff / Slide Review NO; Basophils Absolute Auto 100 /uL (0-100); Basophils Percent Auto 0.8 % (0-2); Eosinophils Absolute Auto 200 /uL (0-450); Eosinophils Percent Auto 1.6 % (2-4); Hematocrit 43.4 % (36-46); Lymphocytes Absolute Auto 1800 /uL (1100-4500); Lymphocytes Percent Auto 12.2 % (25-40); Mean Corpuscular HGB Conc 32.4 % (30-36); Mean Corpuscular Hemoglobin 28.8 PG (26-34); Mean Corpuscular Volume 89.2 fL (80-100); Monocytes Absolute Auto 1200 /uL (0-900); Monocytes Percent Auto 8.4 % (3-14); Neutrophils Absolute Auto 11200 /uL (1500-7000); Platelet Count 376 X10^3/uL (150-400); Red Blood Cell Count 4.87 X10^6/uL (4.0-5.2); Red Cell Distribution Width 14.2 % (11.6-14.8); White Blood Cell Count 14.6 X10^3/uL (4.5-11.0)
[2023-11-04 17:46] LABS: Alanine Aminotransferase 22 IU/L (<35); Albumin 4.2 g/dL (3.5-5.0); Albumin Globulin Ratio 1.6 (1.0-2.8); Alkaline Phosphatase 107 U/L (38-126); Aspartate Aminotransferase 35 IU/L (14-36); Bilirubin Total 0.9 mg/dL (0.2-1.3); Blood Urea Nitrogen 12 mg/dL (7-17); Calcium 9.4 mg/dL (8.4-10.2); Carbon Dioxide 23 mmol/L (22-32); Chloride 103 mmol/L (98-107); Estimated Glomerular Filt Rate 54 mL/min (>60); Globulin 2.7 g/dL (1.7-4.1); Glucose 183 mg/dL (80-110); HEMOLYSIS < 15 (0-50); Lipase 68 U/L (23-300); Potassium 4.3 mmol/L (3.4-5.1); Sodium 136 mmol/L (137-145); Total Protein 6.9 g/dL (6.3-8.2)
--- NOTE | 2023-11-04 19:17 | ED_ITS ---
HPI - Abdominal Pain General Chief Complaint: Abdominal Pain Stated Complaint: abd pain, nausea, diarrhea sent by [facility] Time Seen by Provider: 11/04/23 19:04 Mode of arrival: Ambulatory History of Present Illness HPI narrative: 73-year-old female with history of hypothyroidism, anxiety, depression, chronic pain, tobacco use presents from the walk-in clinic for abdominal pain. Patient reports 6 days of right lower quadrant abdominal pain that has not improved. Reports occasional nausea. Denies vomiting, changes in bowel habits, denies fever. Since pain persisted she decided to present for evaluation. Denies previous history of abdominal surgeries. Related Data Home Medications Medication Instructions Recorded Confirmed loratadine 10 mg tablet (Claritin) 10 mg PO DAILY PRN bronchial 04/25/12 11/04/23 allergy ##0 acetaminophen 500 mg tablet 1,000 mg PO BID PRN pain 04/13/18 11/04/23 (Tylenol Extra Strength) hhpqvvyzoim-xawxrbablcdmmpnsgdtrv-crg 1 tab PO BID 04/20/18 11/04/23 Q-mykcoldnf-jtawrt no.21 tablet (Glucosamine-Methylsulfonylmethane Complex tablet) ibandronate 150 mg tablet 150 mg PO QMONTH 11/04/23 11/04/23 Previous Rx's Medication Instructions Recorded duloxetine 60 mg capsule,delayed 60 mg PO DAILY #90 caps 10/24/17 release levothyroxine 50 mcg tablet 50 mcg PO QAM #90 tabs 05/11/18 alprazolam 0.5 mg tablet (Xanax) See Rx Instructions PO TIDP PRN 05/24/18 anxiety #30 tabs Allergies Allergy/AdvReac Type Severity Reaction Status Date / Time No Known Drug Allergies Allergy Verified 11/10/22 17:07 Review of Systems Review of Systems Narrative: See HPI Patient History Medical History (Updated 11/05/23 @ 04:09 by Carole Das MD) Osteoarthritis Chronic low back pain History of rectocele (03/01/16) Chronic cough Chronic constipation DENNIS (stress urinary incontinence, female) Recurrent sinusitis Current smoker Hypothyroidism Surgical History History of lumbar spinal fusion (08/2018) S/P cervical spinal fusion (04/20/18) Hx of sinus surgery Status post trigger finger release Status post colonoscopy Status post colonoscopy Status post hysterectomy Family History Brother Age: 76 Diabetes mellitus Father Diabetes mellitus Mother Mental health problem Grandfather Cancer Social History household members: spouse Smoking Status: Current every day smoker alcohol intake: current Smoking Status: Current every day smoker alcohol intake frequency: holidays/special occasions only Substance Use Type: does not use Exam Initial Vital Signs Initial Vital Signs: Vital Signs Temperature 97.5 F L 11/04/23 17:09 Pulse Rate 77 11/04/23 17:09 Respiratory Rate 19 11/04/23 17:09 Blood Pressure 109/74 11/04/23 17:09 Pulse Oximetry 97 11/04/23 17:09 Oxygen Delivery Method Room Air 11/04/23 17:09 Const: Awake, alert, no acute distress, nontoxic appearing Cardiac: regular rate, regular rhythm RESP: unlabored, clear bilaterally, no wheezing GI: Soft, right lower quadrant tenderness to deep palpation, negative Rovsing sign, negative psoas sign, no rebound, no guarding Skin: Warm, Dry, intact, no rashes Neuro: AO x3, CN II-XII grossly intact, moves all extremities Course Orders Ordered: ED Orders 11/04/23 19:16 CT abdomen pelvis w con Stat Hydrocodone Bitart/Acetaminophen (Hydrocodone/Acet 5/325 Tablet) 1 tab PO Q4H PRN PRN Reason: Pain, Moderate (4-6) Hydrocodone Bitart/Acetaminophen (Hydrocodone/Acet 5/325 Tablet) 2 tab PO Q4H PRN PRN Reason: Pain, Severe (7-10) Heparin Sodium (Porcine) (Heparin 5,000 Unit/Ml Vial) 5,000 unit SUBCUT BID [facility] Last Admin: 11/04/23 23:05 Dose: 5,000 unit Documented By: AGW Dextrose/Sodium Chloride (Dextrose 5%-0.45% Ns) 1,000 mls @ 100 mls/hr IV CONT [facility] Last Admin: 11/04/23 23:05 Dose: 100 mls/hr Documented By: AGW Piperacillin Sod/Tazobactam (Sod 3.375 gm/ Sodium Chloride) 100 mls @ 25 mls/hr IV Q8H [facility] Last Admin: 11/05/23 02:29 Dose: 25 mls/hr Documented By: VANESSA Ibuprofen (Ibuprofen 400 Mg Tablet) 400 mg PO Q4H [facility] Last Admin: 11/05/23 02:28 Dose: Not Given Documented By: VANESSA Naloxone HCl (Naloxone 0.4 Mg/Ml Vial) 0.2 mg IV Q2MIN PRN PRN Reason: Opiate Reversal Ondansetron HCl (Ondansetron 4 Mg Odt) 4 mg PO NOW PRN PRN Reason: Nausea And Vomiting Ondansetron HCl (Ondansetron 4 Mg/2 Ml Inj) 4 mg IV NOW PRN PRN Reason: Nausea And Vomiting Ondansetron HCl (Ondansetron 4 Mg/2 Ml Inj) 4 mg IV Q8HR PRN PRN Reason: Nausea And Vomiting Pantoprazole Sodium (Pantoprazole Dr 20 Mg Tablet) 20 mg PO 0600 [facility] Discontinued Medications Sodium Chloride (Normal Saline 0.9%) 1,000 mls @ 1,000 mls/hr IV BOLUS ONE Stop: 11/04/23 20:15 Last Infusion: 11/04/23 21:15 Dose: Infused Documented By: Admin: 11/04/23 19:57 Dose: 1,000 mls/hr Documented By: JUSTO Piperacillin Sod/Tazobactam (Sod 4.5 gm/ Sodium Chloride) 100 mls @ 200 mls/hr IV NOW ONE Stop: 11/04/23 21:29 Last Infusion: 11/04/23 22:35 Dose: Infused Documented By: Admin: 11/04/23 22:05 Dose: 200 mls/hr Documented By: GRANT Piperacillin Sod/Tazobactam (Sod 3.375 gm/ Sodium Chloride) 100 mls @ 25 mls/hr IV Q8H [facility] Last Admin: 11/05/23 02:44 Dose: Not Given Documented By: VANESSA Vital Signs Vital signs: Vital Signs - 8 hr 11/04/23 17:09 Temperature 97.5 F L Pulse Rate 77 Respiratory Rate 19 Blood Pressure 109/74 Pulse Oximetry 97 Oxygen Delivery Method Room Air MDM - Abdominal Pain Differential Diagnosis Differential diagnosis: Likely abdominal pain, acute appendicitis and calculus of kidney Lab Data 11/04/23 17:22 11/04/23 17:22 Labs: Lab Results 11/04/23 Range/Units 17:22 WBC 14.6 H (4.5-11.0) X10^3/uL RBC 4.87 (4.0-5.2) X10^6/uL Hgb 14.0 (12.0-16.0) g/dL Hct 43.4 (36-46) % MCV 89.2 (80-100) fL MCH 28.8 (26-34) PG MCHC 32.4 (30-36) % RDW 14.2 (11.6-14.8) % Plt Count 376 (150-400) X10^3/uL Neut % (Auto) 77.0 H (50-75) % Lymph % (Auto) 12.2 L (25-40) % [place] % (Auto) 8.4 (3-14) % Eos % (Auto) 1.6 L (2-4) % Baso % (Auto) 0.8 (0-2) % Neut # (Auto) 47600 H (9042-4909) /uL Lymph # (Auto) 1800 (5557-4079) /uL [place] # (Auto) 1200 H (0-900) /uL Eos # (Auto) 200 (0-450) /uL Baso # (Auto) 100 (0-100) /uL Sodium 136 L (137-145) mmol/L Potassium 4.3 (3.4-5.1) mmol/L Chloride 103 (98-107) mmol/L Carbon Dioxide 23 (22-32) mmol/L BUN 12 (7-17) mg/dL Creatinine 1.09 H (0.52-1.04) mg/dL Estimated GFR 54 L (>60) mL/min BUN/Creatinine Ratio 11.0 (6-22) Glucose 183 H (80-110) mg/dL Calcium 9.4 (8.4-10.2) mg/dL Total Bilirubin 0.9 (0.2-1.3) mg/dL AST 35 (14-36) IU/L ALT 22 (<35) IU/L Alkaline Phosphatase 107 (38-126) U/L Total Protein 6.9 (6.3-8.2) g/dL Albumin 4.2 (3.5-5.0) g/dL Globulin 2.7 (1.7-4.1) g/dL Albumin/Globulin Ratio 1.6 (1.0-2.8) Lipase 68 (23-300) U/L Point of care testing: Urine Dip Bedside Urine Glucose Negative Bedside Urine Bilirubin - Negative Bedside Urine Ketone - Negative Urine Specific [place] 1.00 Bedside Urine Occult Blood - Negative Bedside Urine pH 6.0 Bedside Urine Protein - Negative Bedside Urine Urobilinogen - Negative Bedside Urine Nitrite - Negative Bedside Urine Leukocytes - Negative Esterase Imaging Data CT scan - abdomen/pelvis: Radiologist's Impression: PROCEDURE: CT ABDOMEN PELVIS W CON INDICATIONS: RLQ ABD PAIN X 6 DAYS TECHNIQUE: After the administration of intravenous contrast, axial sections acquired from the lung bases to the pubic symphysis. Coronal and sagittal reformats were performed. For radiation dose reduction, the following was used: automated exposure control, adjustment of mA and/or kV according to patient size. COMPARISON: None. FINDINGS: Image quality: Diagnostic. Lower Chest: No significant findings. There is a small hiatal hernia. ABDOMEN: Liver: No solid mass. Gallbladder: No radiopaque gallstones or wall thickening. Biliary ducts: No biliary dilation. Pancreas: No ductal dilation. Spleen: Size is within normal limits. Adrenal Glands: No adrenal nodules. Kidneys and Ureters: No hydronephrosis. No solid mass. No complex renal cystic lesion which requires follow up. Stomach and Bowel: Appendix is markedly enlarged measuring up to 15 mm in diameter. There is appendiceal wall thickening and marked periappendiceal stranding in the right lower quadrant. A complex fluid collection with rim enhancement is present in the right lower quadrant measuring 2.0 x 2.5 cm, compatible with an abscess. Lateral to this collection, there is a small collection with fluid and air measuring 1.5 x 1.6 cm, also compatible with an abscess. An alternative diagnostic consideration is a perforated appendiceal or cecal mass. Normal small bowel and colonic caliber, without significant wall thickening. There are scattered colonic diverticula. No CT findings to suggest acute diverticulitis. There is mild diffuse colonic wall thickening involving the splenic flexure, descending and transverse colon, probably related to chronic inflammation secondary to diverticular disease. Peritoneum: No abnormal intraperitoneal fluid. No free air. Ventral Wall: No significant ventral hernia. Abdominal Nodes: No retroperitoneal or mesenteric adenopathy by size criteria. Vessels: Aorta and inferior vena cava are normal in size. PELVIS: Pelvic Organs: Unremarkable. Bladder: No bladder wall thickening, accounting for underdistention. Pelvic Nodes: No enlarged lymph nodes. Miscellaneous: No inguinal hernias are seen. Bones: No aggressive osseous abnormality. Extensive degenerative and postsurgical changes in lumbar spine. There is osteopenia. IMPRESSION: 1. Acute appendicitis. There are findings consistent with appendiceal perforation and small periappendiceal abscesses. Less likely, this could represent perforated appendiceal cecal mass. 2. Diverticulosis without acute diverticulitis. 3. There is diffuse colonic wall thickening involving the splenic flexure, descending and sigmoid colon, probably related to chronic inflammatory change related to diverticular disease. Superimposed colitis cannot be excluded. The result was discussed with Dr. Das in ER. Dictated by: Jagdish Alvarez M.D. on 11/04/2023 at 21:24 Approved by: Jagdish Alvarez M.D. on 11/04/2023 at 21:49 MDM Narrative Medical decision making narrative: Nontoxic patient with persistent right lower quadrant abdominal pain. Abdomen is soft but she was tender to palpation in the right lower quadrant. No peritoneal signs. Based on patient's age and duration of symptoms labs and CT imaging will be ordered. Laboratory work is reviewed, WBC count 14.6. Other laboratory work is within normal limits. Preliminary review of CT abdomen and pelvis seems to show inflammation and fluid in the right lower quadrant. CT results discussed with Radiology Dr. Alvarez. Patient has acute appendicitis with periappendiceal small abscess. Zosyn ordered for coverage. Case discussed with Dr. Jennings of General surgery, who stated that the abscess was small and at this point could be treated with antibiotics. Likely will not need surgery at this time. Dr. Jennings will admit to her service for further treatment. Discharge Plan Departure Patient Disposition: Home Clinical Impression: Abscess, periappendiceal Acute appendicitis Qualifiers: Acute appendicitis type: with localized peritonitis Appendicitis gangrene presence: without gangrene Appendicitis perforation presence: unspecified whether perforation present Appendicitis abscess presence: with abscess Q ualified Code(s): K35.33 - Acute appendicitis with perforation, localized peritonitis, and gangrene, with abscess
[2023-11-04] MEDS: SODIUM CHLORIDE 0.9% 1,000 ML 1000 ML IV (19:57)
[2023-11-04] MEDS: PIPERACILLIN/TAZO 4.5 GM in SODIUM CHLORIDE 0.9% 100 ML IV (22:05)
[2023-11-04 22:34] VITALS: BMI 33.0
[2023-11-04] MEDS: HEPARIN 5,000 UNIT/ML VIAL 5000 UNIT SUBCUT (23:05)
[2023-11-04] MEDS: DEXTROSE 5%-0.45% NS 1,000 ML 100 ML IV (23:05)
[2023-11-05] MEDS: PIPERACILLIN/TAZO 3.375 GM in SODIUM CHLORIDE 0.9% 100 ML IV ×3 (02:29→18:37)
[2023-11-05 03:33] VITALS: BP 106/59; PULSE 88; RESP 18; TEMP 36.3; O2SAT 92
[2023-11-05 04:44] LABS: Add Manual Diff / Slide Review NO; Basophils Absolute Auto 300 /uL (0-100); Basophils Percent Auto 2.9 % (0-2); Eosinophils Absolute Auto 200 /uL (0-450); Eosinophils Percent Auto 1.5 % (2-4); Hematocrit 39.4 % (36-46); Hemoglobin 12.8 g/dL (12.0-16.0); Lymphocytes Absolute Auto 1100 /uL (1100-4500); Lymphocytes Percent Auto 10.4 % (25-40); Mean Corpuscular HGB Conc 32.6 % (30-36); Mean Corpuscular Hemoglobin 28.7 PG (26-34); Monocytes Absolute Auto 900 /uL (0-900); Neutrophils Absolute Auto 7800 /uL (1500-7000); Neutrophils Percent Auto 76.2 % (50-75); Platelet Count 255 X10^3/uL (150-400); Red Blood Cell Count 4.48 X10^6/uL (4.0-5.2); Red Cell Distribution Width 14.1 % (11.6-14.8); White Blood Cell Count 10.2 X10^3/uL (4.5-11.0)
[2023-11-05 05:23] LABS: BUN Creatinine Ratio 13.2 (6-22); Blood Urea Nitrogen 10 mg/dL (7-17); Calcium 8.3 mg/dL (8.4-10.2); Carbon Dioxide 25 mmol/L (22-32); Chloride 108 mmol/L (98-107); Estimated Glomerular Filt Rate > 60 mL/min (>60); Glucose 130 mg/dL (80-110); HEMOLYSIS 15 (0-50); Potassium 4.1 mmol/L (3.4-5.1); Sodium 137 mmol/L (137-145)
[2023-11-05 08:00] VITALS: BP 100/53; PULSE 90; RESP 16; TEMP 36.7; O2SAT 94
[2023-11-05] MEDS: HEPARIN 5,000 UNIT/ML VIAL 5000 UNIT SUBCUT ×2 (08:31→21:18)
[2023-11-05] MEDS: PANTOPRAZOLE DR 20 MG TABLET PO (08:31)
--- NOTE | 2023-11-05 09:52 | P.HP_ITS ---
History of Present Illness History of Present Illness Date Patient Seen: 11/05/23 Time Patient Seen: 09:52 Chief complaint: abd pain, nausea, diarrhea sent by [facility] Narrative: Six days of feeling unwell, now with lower abdominal pain, diarrhea and anorexia. Pain is dull with intermittent sharp. CT scan that I reviewed shows ruptured appendicitis with 2 abscess that are <3cm each. Plan: Antibiotics, surgery only if antibiotics fail. [facility] Medical History Osteoarthritis Chronic low back pain History of rectocele (03/01/16) Chronic cough Chronic constipation DENNIS (stress urinary incontinence, female) Recurrent sinusitis Current smoker Hypothyroidism Surgical History History of lumbar spinal fusion (08/2018) S/P cervical spinal fusion (04/20/18) Hx of sinus surgery Status post trigger finger release Status post colonoscopy Status post colonoscopy Status post hysterectomy Family History Brother Age: 76 Diabetes mellitus Father Diabetes mellitus Mother Mental health problem Grandfather Cancer Social History household members: spouse Smoking Status: Current every day smoker alcohol intake: current Meds Home Medications and Allergies Home Medications Medication Instructions Recorded Confirmed Type loratadine 10 mg tablet (Claritin) 10 mg PO DAILY PRN bronchial 04/25/12 11/04/23 History allergy ##0 duloxetine 60 mg capsule,delayed 60 mg PO DAILY #90 caps 10/24/17 11/04/23 Rx release acetaminophen 500 mg tablet 1,000 mg PO BID PRN pain 04/13/18 11/04/23 History (Tylenol Extra Strength) yqmgauxgixp-nhbcvngpeldazkhwnortb-vsj 1 tab PO BID 04/20/18 11/04/23 History R-wxvrnxqbj-veplxl no.21 tablet (Glucosamine-Methylsulfonylmethane Complex tablet) levothyroxine 50 mcg tablet 50 mcg PO QAM #90 tabs 05/11/18 11/04/23 Rx alprazolam 0.5 mg tablet (Xanax) See Rx Instructions PO TIDP PRN 05/24/18 11/04/23 Rx anxiety #30 tabs ibandronate 150 mg tablet 150 mg PO QMONTH 11/04/23 11/04/23 History Allergies Allergy/AdvReac Type Severity Reaction Status Date / Time No Known Drug Allergies Allergy Verified 11/10/22 17:07 Review of Systems Review of Systems ROS: Yes All systems reviewed with the patient and are negative except as otherwise documented Exam Vital Signs (past 8 hours): - 11/05/23 03:33 11/05/23 08:00 Temperature 97.3 F L 98.1 F Pulse Rate 88 90 Respiratory Rate 18 16 Blood Pressure 106/59 L 100/53 L Pulse Oximetry 92 94 Oxygen Flow Rate 0 0 Oxygen Delivery Method Room Air Oxygen Flow Rate 0 Const General: cooperative, comfortable and ill appearing Nutritional Appearance: average body habitus HENMN Head: normocephalic and atraumatic Ears: hearing grossly normal bilaterally Eyes Conjunctivae: conjunctivae normal Sclera: sclerae normal Neck Neck: trachea midline Resp Effort & Inspection: normal respiratory effort and able to speak in complete sentences Cardio Rate: regular rate Rhythm: regular rhythm GI Inspection: non-distended Palpation: soft and tender (RLQ) Skin General: atrophy and dry skin Neuro General: patient alert, patient awake and patient oriented x3 Cognition: normal cognition Psych Mental Status: mental status grossly normal Judgment: judgment good Objective Labs 11/05/23 04:25 11/05/23 04:25 Labs: Laboratory Results - last 24 hr 11/04/23 11/05/23 17:22 04:25 WBC 14.6 H 10.2 RBC 4.87 4.48 Hgb 14.0 12.8 Hct 43.4 39.4 MCV 89.2 88.0 MCH 28.8 28.7 MCHC 32.4 32.6 RDW 14.2 14.1 Plt Count 376 255 Neut % (Auto) 77.0 H 76.2 H Lymph % (Auto) 12.2 L 10.4 L [place] % (Auto) 8.4 9.0 Eos % (Auto) 1.6 L 1.5 L Baso % (Auto) 0.8 2.9 H Neut # (Auto) 78428 H 7800 H Lymph # (Auto) 1800 1100 [place] # (Auto) 1200 H 900 Eos # (Auto) 200 200 Baso # (Auto) 100 300 H Sodium 136 L 137 Potassium 4.3 4.1 Chloride 103 108 H Carbon Dioxide 23 25 BUN 12 10 Creatinine 1.09 H 0.76 Estimated GFR 54 L > 60 BUN/Creatinine Ratio 11.0 13.2 Glucose 183 H 130 H Calcium 9.4 8.3 L Total Bilirubin 0.9 AST 35 ALT 22 Alkaline Phosphatase 107 Total Protein 6.9 Albumin 4.2 Globulin 2.7 Albumin/Globulin Ratio 1.6 Lipase 68 Assessment & Plan Assessment & Plan narrative: Ruptured appendicitis with abscess Plan: medical management. Time Spent With Patient Time with patient: 30 to 49 minutes with 50% spent counseling/coordinating care Quality VTE Deep Vein Thrombosis/Pulmonary Embolism Present on Admission: No
[2023-11-05] MEDS: DULOXETINE 30 MG CAPSULE 60 MG PO (10:32)
[2023-11-05] MEDS: LEVOTHYROXINE 50 MCG TABLET PO (10:32)
[2023-11-05 12:00] VITALS: BP 107/56; PULSE 89; RESP 16; TEMP 36.6; O2SAT 97
--- NOTE | 2023-11-05 13:56 | CM.DANOTE ---
Initial DCP Assessment Visit Note Reviewed EMR and team rounds for pt's medical status and updates. Met with pt at bedside to introduce self and role, pt was found to be resting comfortably in bed, alert/oriented, and able to discuss preferences for d/c once she's medically stable. Pt resides independently at baseline in her own home w/spouse here in [place]. Her spouse will plan to transport her back home once she is ready for d/c. Payor: Medicare PCP: Emperatriz Peters Pt is a 73 year-old F who presented to the ED last evening with c/o worsening lower right quadrant pain over the last 6-days. She was seen first in the [facility], then referred to the ED for further evaluation. CT Abd/Pelvis showed ruptured, acute appendicitis. Surgery was consulted, and the decision was made to start pt on IV ABO's first, and if that fails, then surgery. Pt was then placed in OBS for further tx and monitoring. She is NOT NPO at this time. DCP will continue to monitor and assist with evolving needs and assistance for final d/c plan. Discharge Planning/Care Management CM Discharge Assessment Start: 11/05/23 13:54 Freq: Status: Active Protocol: Document 11/05/23 13:54 DPL (Rec: 11/05/23 13:56 DPL [id number]) Discharge Planning Assessment Assigned Signs And Displays Salesperson MARY KAY Fields Advance Directives? Yes Advance Directives on File Yes History Provided By Patient,Medical Record Has Patient been admitted in last 30 No days? Prior Living Arrangements House Household Members spouse Type of transporation used prior to Drives own vehicle admit Independent with ADL's Yes Is patient alert and oriented? Yes Comment N/A Caregiver for Another No Comment N/A Comment No anticipated home d/c needs identified at this time. Comment Has supportive at home Discharge Plan Home Transportation Arrangement Spouse Referrals Initiated None needed Whiteboard Updated in Patient Room with Yes name and ext. # of Signs And Displays Salesperson Review Status In Process Please Provide Date Initial DC 11/05/23 Assessment Was Performed
[2023-11-05] MEDS: IBUPROFEN 400 MG TABLET PO ×2 (14:28→21:18)
[2023-11-05 16:00] VITALS: BP 126/66; PULSE 98; RESP 18; TEMP 36.1; O2SAT 95
[2023-11-05 19:45] VITALS: BP 95/62; PULSE 89; RESP 16; TEMP 36.2; O2SAT 96
[2023-11-05] MEDS: SODIUM CHLORIDE 0.9% FLUSH 10 ML IV (21:22)
[2023-11-05 23:00] VITALS: BP 123/65; PULSE 87; RESP 16; TEMP 36.2; O2SAT 98
[2023-11-06] MEDS: IBUPROFEN 400 MG TABLET PO ×2 (02:05→06:24)
[2023-11-06] MEDS: PIPERACILLIN/TAZO 3.375 GM in SODIUM CHLORIDE 0.9% 100 ML IV ×2 (02:06→09:09)
[2023-11-06 05:15] VITALS: BP 126/65; PULSE 90; RESP 16; TEMP 36.1; O2SAT 95
[2023-11-06] MEDS: LEVOTHYROXINE 50 MCG TABLET PO (06:25)
[2023-11-06] MEDS: PANTOPRAZOLE DR 20 MG TABLET PO (06:25)
[2023-11-06 07:58] VITALS: BP 119/72; PULSE 60; RESP 19; TEMP 36.3; O2SAT 97
[2023-11-06] MEDS: DULOXETINE 30 MG CAPSULE 60 MG PO (09:08)
[2023-11-06] MEDS: SODIUM CHLORIDE 0.9% FLUSH 10 ML IV (09:09)
[2023-11-06 09:49] LABS: Add Manual Diff / Slide Review NO; Basophils Absolute Auto 100 /uL (0-100); Basophils Percent Auto 1.5 % (0-2); Eosinophils Absolute Auto 200 /uL (0-450); Eosinophils Percent Auto 2.2 % (2-4); Hematocrit 38.8 % (36-46); Hemoglobin 12.6 g/dL (12.0-16.0); Lymphocytes Absolute Auto 900 /uL (1100-4500); Lymphocytes Percent Auto 12.9 % (25-40); Mean Corpuscular HGB Conc 32.6 % (30-36); Mean Corpuscular Hemoglobin 28.5 PG (26-34); Mean Corpuscular Volume 87.6 fL (80-100); Monocytes Absolute Auto 600 /uL (0-900); Monocytes Percent Auto 8.8 % (3-14); Neutrophils Absolute Auto 5400 /uL (1500-7000); Neutrophils Percent Auto 74.6 % (50-75); Platelet Count 306 X10^3/uL (150-400); Red Blood Cell Count 4.43 X10^6/uL (4.0-5.2); Red Cell Distribution Width 14.3 % (11.6-14.8); White Blood Cell Count 7.2 X10^3/uL (4.5-11.0)
[2023-11-06] MEDS: AMOXICILLIN/CLAV 875/125 MG 1 TAB PO (10:29)
[2023-11-06] MEDS: DOCUSATE 100 MG CAPSULE 200 MG PO (10:29)
--- NOTE | 2023-11-06 13:07 | CM.DPC ---
DCP Discharge Home Per MD, pt was able to be switched to PO meds and ambulating, pain controlled, voided and tolerated diet and medically stable to discharge home with no identified barriers to discharge. Per RN, no concerns noted and discharge instructions provided and pt taken to spouse POV for transport home today. MARY KAY Wallace
== END 2023-11-06 10:40 | disposition home or self-care (01) ==
LOC: ED 19:04 → AC 21:59
PROVIDERS: Emergency Medicine; Admitting Provider Surgery; Emergency Provider Emergency Medicine; PCP Internal Medicine; Referring Provider Emergency Medicine; Visit Provider Surgery
DX: K35.33 Acute appendicitis with perforation, localized peritonitis, and gangrene, with abscess (principal)
CPT/HCPCS: 36415; 74177; 80048; 80053; 81003; 83690; 85025; 93005; 96361; 96365; 96366; 99221; 99284; G0378; J1644; J2543; Q9967

== ENCOUNTER → 2023-11-28 12:13 | Outpatient (CLI) | payer MEDICARE, SELFPAY ==
[2023-11-04 22:34] VITALS: BMI 33.0
--- NOTE | 2023-11-28 12:15 | DI.CT.S_ITS ---
PROCEDURE: CT ABDOMEN PELVIS W CON INDICATIONS: Acute appendicitis with generalized peritonitis TECHNIQUE: After the administration of intravenous contrast, axial sections acquired from the lung bases to the pubic symphysis. Coronal and sagittal reformats were performed. For radiation dose reduction, the following was used: automated exposure control, adjustment of mA and/or kV according to patient size. COMPARISON: [facility], CT, CT ABDOMEN PELVIS W CON, 11/04/2023, 19:36. FINDINGS: Image quality: Diagnostic. Lower Chest: Mild dependent atelectasis. Heart is normal in size. Trace pericardial effusion. Small hiatal hernia. ABDOMEN: Liver: No solid mass. Subcentimeter hypodensities, too small technique characterize and favored to represent simple cysts. Gallbladder: No radiopaque gallstones or wall thickening. Biliary ducts: No biliary dilation. Pancreas: No ductal dilation. Spleen: Size is within normal limits. Adrenal Glands: No adrenal nodules. Kidneys and Ureters: No hydronephrosis. No solid mass. No complex renal cystic lesion which requires follow up. Stomach and Bowel: Focal area of wall thickening involving the cecum (2/58). No organized fluid collections. There is mild adjacent fat stranding. Diverticulosis without evidence of acute diverticulitis. Peritoneum: No abnormal intraperitoneal fluid. No free air. Ventral Wall: No significant ventral hernia. Abdominal Nodes: No retroperitoneal or mesenteric adenopathy by size criteria. Vessels: Aorta and inferior vena cava are normal in size. Atherosclerotic vascular calcifications. PELVIS: Pelvic Organs: Unremarkable. Bladder: No bladder wall thickening, accounting for underdistention. Pelvic Nodes: No enlarged lymph nodes. Miscellaneous: No inguinal hernias are seen. Bones: No aggressive osseous abnormality. L1 through S1 posterior spinal fixation. Decreased osseous mineralization. Degenerative changes of the spine. IMPRESSION: There is a focal area of wall thickening involving the cecum with mild surrounding inflammation, likely representing resolving appendicitis. Given focal nature of wall thickening, recommend colonoscopy once inflammation resolves to assess for underlying neoplasm. Significant diverticulosis without evidence of acute diverticulitis. Dictated by: Naeem Morris M.D. on 11/28/2023 at 15:00 Approved by: Naeem Morris M.D. on 11/28/2023 at 15:04
== END ==
PROVIDERS: PCP Internal Medicine; Referring Provider Internal Medicine; Visit Provider Internal Medicine
DX: K35.211 Acute appendicitis with generalized peritonitis, with perforation and abscess (principal); K57.90 Diverticulosis of intestine, part unspecified, without perforation or abscess without bleeding; K44.9 Diaphragmatic hernia without obstruction or gangrene
CPT/HCPCS: 74177; Q9967

== ENCOUNTER → 2023-12-14 15:15 | Outpatient (CLI) | payer MEDICARE, SELFPAY ==
[2023-12-14 17:07] LABS: Estimated Glomerular Filt Rate 58 mL/min (>60)
== END ==
PROVIDERS: PCP Internal Medicine; Referring Provider Surgery; Visit Provider Surgery
DX: K35.33 Acute appendicitis with perforation, localized peritonitis, and gangrene, with abscess (principal)
CPT/HCPCS: 36415; 82565

== ENCOUNTER → 2023-12-15 12:24 | Outpatient (CLI) | payer MEDICARE, SELFPAY ==
--- NOTE | 2023-12-15 12:25 | DI.CT.S_ITS ---
PROCEDURE: CT ABDOMEN PELVIS W CON INDICATIONS: History of appendicitis TECHNIQUE: After the administration of intravenous contrast, axial sections acquired from the lung bases to the pubic symphysis. Coronal and sagittal reformats were performed. For radiation dose reduction, the following was used: automated exposure control, adjustment of mA and/or kV according to patient size. COMPARISON: [facility], CT, CT ABDOMEN PELVIS W CON, 11/28/2023, 13:31. FINDINGS: Image quality: Diagnostic Lower chest: Scattered scarring and atelectasis. Small hiatal hernia. There is oral contrast in the distal esophagus. Liver: Unremarkable Gallbladder and biliary system: Unremarkable, nondilated Pancreas: No ductal dilation Spleen: Nonenlarged Adrenals: No discrete nodules Kidneys: No solid mass or hydronephrosis Vessels and lymph nodes: The main portal vein is patent. No abdominal aortic aneurysm. No pathologic lymph nodes by size criteria. Bowel and peritoneum: No evidence of small bowel obstruction. Colonic diverticula are present. No pathologic ascites. Wall thickening persists at the cecum. Overall inflammatory changes have decreased. Body wall: Small fat containing umbilical hernia Pelvis: Bladder is unremarkable. The uterus is absent Bones: Degenerative changes, no acute or suspicious osseous finding. Lumbosacral fusion hardware is seen. IMPRESSION: Persistent wall thickening at the cecum, correlate with direct visualization if not already performed. Surrounding inflammatory changes have decreased. Other findings as above. Dictated by: Drew Perez M.D. on 12/15/2023 at 16:47 Approved by: Drew Perez M.D. on 12/15/2023 at 16:53
== END ==
PROVIDERS: PCP Internal Medicine; Referring Provider Surgery; Visit Provider Surgery
DX: K35.33 Acute appendicitis with perforation, localized peritonitis, and gangrene, with abscess (principal); K44.9 Diaphragmatic hernia without obstruction or gangrene; K57.90 Diverticulosis of intestine, part unspecified, without perforation or abscess without bleeding; K42.9 Umbilical hernia without obstruction or gangrene; Z90.710 Acquired absence of both cervix and uterus; Z98.1 Arthrodesis status
CPT/HCPCS: 74177; Q9967

== ENCOUNTER 2024-03-01 06:38 | Day surgery (SDC) | payer MEDICARE, SELFPAY ==
--- NOTE | 2024-03-01 | PATH_ITS ---
[facility] Accession Number: [id number] No. of containers..01 Tissue . 01 Material submitted: . colon - DESCENDING POLYP . 01 Diagnosis: DESCENDING COLON, POLYP: Tubular adenoma. MRV 03/06/2024 1128 Local . 01 Electronically signed: . Helena Gomez MD, Pathologist NPI- [id number] . 01 Gross description: . Received in formalin with two patient identifiers and descending colon polyp, are three jimenez soft tissue fragments, 0.3 to 0.4 cm in greatest dimension. Submitted in A1. ([id number]) /MRV 03/04/2024 1205 Local . 01 Pathologist provided ICD-10: D12.4 . 01 CPT . 409152 Specimen Comment: A courtesy copy of this report has been sent to [phone] Performed at: [address] [facility] [id number] MD John Norris MD Phone: [phone]
[2024-03-01] MEDS: LACTATED RINGERS 1,000 ML 42 ML IV (07:24)
[2024-03-01 07:27] VITALS: BP 140/85; PULSE 91; RESP 16; TEMP 36.6; O2SAT 97
--- NOTE | 2024-03-01 07:39 | PM.HP.1 ---
History of Present Illness History of Present Illness Date Patient Seen: 03/01/24 Time Patient Seen: 07:39 Chief complaint: Colonoscopy Narrative: Rosi is a 74 year old woman with history of appendiciitis and abdominal pain. See proir notes for detals. FORMERLY [facility], [facility] Medical History Osteoarthritis Chronic low back pain History of rectocele (03/01/16) Chronic cough Chronic constipation DENNIS (stress urinary incontinence, female) Recurrent sinusitis Current smoker Hypothyroidism Surgical History History of lumbar spinal fusion (08/2018) S/P cervical spinal fusion (04/20/18) Hx of sinus surgery Status post trigger finger release Status post colonoscopy Status post colonoscopy Status post hysterectomy Family History Brother Age: 76 Diabetes mellitus Father Diabetes mellitus Mother Mental health problem Grandfather Cancer Social History marital status: household members: spouse lives independently: Yes occupational status: previously employed Smoking Status: Current every day smoker alcohol intake: former substance use type: does not use Meds Home Medications and Allergies Home Medications Medication Instructions Recorded Confirmed Type loratadine 10 mg tablet (Claritin) 10 mg PO DAILY PRN bronchial 04/25/12 03/01/24 History allergy ##0 duloxetine 60 mg capsule,delayed 60 mg PO DAILY #90 caps 10/24/17 03/01/24 Rx release levothyroxine 50 mcg tablet 50 mcg PO QAM #90 tabs 05/11/18 03/01/24 Rx alprazolam 0.5 mg tablet (Xanax) See Rx Instructions PO TIDP PRN 05/24/18 03/01/24 Rx anxiety #30 tabs ibandronate 150 mg tablet 150 mg PO QMONTH 11/04/23 03/01/24 History propranolol 10 mg tablet 10 mg PO BID anxiety 03/01/24 03/01/24 History Allergies Allergy/AdvReac Type Severity Reaction Status Date / Time No Known Drug Allergies Allergy Verified 03/01/24 07:25 Exam Vital Signs (past 8 hours): - 03/01/24 07:27 Temperature 97.9 F Pulse Rate 91 H Respiratory Rate 16 Blood Pressure 140/85 Pulse Oximetry 97 Oxygen Delivery Method Room Air Oxygen Delivery Method Room Air Const General: No acute distress Assessment & Plan Assessment and plan (1) Abscess, periappendiceal: Status: Acute Plan Colonoscopy Time-Based Coding :: [TOTAL MINUTES] spent with patient and on the chart (including review of chart, obtaining history, exam, reviewing outside data, placing orders, documenting exam and treatment plan, and counseling patient) on [DATE].
[2024-03-01 08:02] VITALS: BP 167/91; PULSE 95; RESP 20; TEMP 36.6; O2SAT 90
[2024-03-01 08:07] VITALS: BP 132/73; PULSE 96; RESP 14; O2SAT 99
--- NOTE | 2024-03-01 08:07 | PM.OP.COLON ---
Operative Date/Time/Diagnoses Date of procedure: 03/01/24 Time of procedure: 08:07 Pre-op diagnosis: Abnormal imaging of the colon Post-op diagnosis: same Procedure & Clinicians Study performed: Colonoscopy Same procedure as scheduled: Yes Surgeon: Garrett Adams Procedure Notes Procedure in detail: Surgeon: Garrett Adams MD Anesthesia: Emerita Mccarthy CRNA Procedure: The patient was brought to the endoscopy suite, placed in left lateral decubitus position. The patient was connected to monitoring devices. A time-out was performed. Sedation was administered. Once the patient was adequately sedated, a digital rectal exam was performed and was normal. The scope was then inserted and advanced to the cecum where the appendiceal orifice was identified and photographed. No abnormalities were identified within the cecum or around the appendiceal orifice. The scope was then slowly withdrawn over greater than 6 minutes. The mucosa was thoroughly inspected. There was a 5 mm polyp in the descending colon which was removed with a cold forceps. The scope was retroflexed in the rectum. No other abnormalities were seen. The scope was straightened and removed. The patient was awakened and brought to recovery. Scope withdrawal time: 10 minutes Sedation time: 18 minutes EBL: 2 mL Findings: 5 mm polyp in the descending colon Post-procedure Disposition: PACU
[2024-03-01 08:12] VITALS: BP 116/65; PULSE 85; RESP 21; O2SAT 99
[2024-03-01] MEDS: ALBUTEROL/IPRATROPIUM 3 ML AMPUL INH (08:19)
== END 2024-03-01 08:28 | disposition home or self-care (01) ==
PROVIDERS: PCP Internal Medicine; Referring Provider Surgery; Visit Provider Surgery
PROC: 0DJD8ZZ Inspection of Lower Intestinal Tract, Via Natural or Artificial Opening Endoscopic (ICD-10-PCS; CPT 45378; principal; 2024-03-01 07:45)
DX: R93.3 Abnormal findings on diagnostic imaging of other parts of digestive tract (principal); R10.9 Unspecified abdominal pain; D12.4 Benign neoplasm of descending colon
CPT/HCPCS: 45380

== ENCOUNTER → 2024-03-19 12:47 | Outpatient (CLI) | payer MEDICARE, SELFPAY ==
[2024-03-19 13:18] LABS: Estimated Glomerular Filt Rate > 60 mL/min (>60)
== END ==
PROVIDERS: PCP Internal Medicine; Referring Provider Surgery; Visit Provider Surgery
DX: K35.33 Acute appendicitis with perforation, localized peritonitis, and gangrene, with abscess (principal)
CPT/HCPCS: 36415; 82565

== ENCOUNTER → 2024-03-21 07:54 | Outpatient (CLI) | payer MEDICARE, SELFPAY ==
--- NOTE | 2024-03-21 09:30 | DI.CT.S_ITS ---
PROCEDURE: CT ABDOMEN PELVIS W CON INDICATIONS: History of appendicitis TECHNIQUE: Oral contrast was given in this patient. After the administration of intravenous contrast, axial sections acquired from the lung bases to the pubic symphysis. Coronal and sagittal reformats were performed. For radiation dose reduction, the following was used: automated exposure control, adjustment of mA and/or kV according to patient size. COMPARISON: [facility], CT, CT ABDOMEN PELVIS W CON, 11/28/2023, 13:31. [facility], CT, CT ABDOMEN PELVIS W CON, 11/04/2023, 19:36. [facility], CT, CT ABDOMEN PELVIS W CON, 12/15/2023, 13:28. FINDINGS: Image quality: There is artifact associated with the metallic hardware. Artifact from the metallic hardware is reduced by metal reconstruction algorithm. Lower Chest: Mild dependent atelectasis can be seen. The heart size is normal. There is a small hiatal hernia. ABDOMEN: Liver: No solid mass. Gallbladder: No radiopaque gallstones or wall thickening. Biliary ducts: No biliary dilation. Pancreas: No ductal dilation. Spleen: Size is within normal limits. Adrenal Glands: No adrenal nodules. Kidneys and Ureters: No hydronephrosis. No solid mass. No complex renal cystic lesion which requires follow up. Stomach and Bowel: Prior appendectomy. No focal abnormalities can be seen within the right lower quadrant of the abdomen. No dilated loops of small bowel are seen. There is significant distal colonic diverticulosis. No alexei findings of active diverticulitis can be seen. No additional colonic abnormality is seen. Peritoneum: No abnormal intraperitoneal fluid. No free air. Ventral Wall: A mild periumbilical hernia is seen, containing fat. Abdominal Nodes: No retroperitoneal or mesenteric adenopathy by size criteria. Vessels: Aorta and inferior vena cava are normal in size. PELVIS: Pelvic Organs: This patient is status post hysterectomy. No adnexal masses are seen. Bladder: No bladder wall thickening, accounting for underdistention. Pelvic Nodes: No enlarged lymph nodes. Miscellaneous: No inguinal hernias are seen. Bones: No aggressive osseous abnormality. L1 through S1 postoperative hardware is seen, without alexei complication. IMPRESSION: Status post appendectomy, without complication seen. Significant distal colonic diverticulosis is seen, without findings of active diverticulitis. Additional findings: Small hiatal hernia Fat containing periumbilical hernia L1 through S1 postoperative hardware Hysterectomy Dictated by: Wood Mccauley M.D. on 03/21/2024 at 13:16 Approved by: Wood Mccauley M.D. on 03/21/2024 at 13:19
== END ==
LOC: CT 07:55
PROVIDERS: PCP Internal Medicine; Referring Provider Surgery; Visit Provider Surgery
DX: K35.33 Acute appendicitis with perforation, localized peritonitis, and gangrene, with abscess (principal); K44.9 Diaphragmatic hernia without obstruction or gangrene; K57.90 Diverticulosis of intestine, part unspecified, without perforation or abscess without bleeding
CPT/HCPCS: 74177; Q9967

== ENCOUNTER → 2024-08-03 12:36 | Outpatient (CLI) | payer MEDICARE, SELFPAY ==
--- NOTE | 2024-08-03 12:38 | DI.CT.S_ITS ---
PROCEDURE: CT LUNG LOW DOSE SCREENING INDICATIONS: NICOTINE DEPENDENCE TECHNIQUE: Noncontrast 2.0-2.5 mm thick sections acquired from the pulmonary apices to the posterior costophrenic angles. 7 mm thick axial MIP, and 5 mm coronal and sagittal reformats were then acquired. For radiation dose reduction, the following was used: automated exposure control, adjustment of mA and/or kV according to patient size. COMPARISON: [facility], CHEST 2 VIEW, 05/26/2017, 17:37. FINDINGS: Image quality: Diagnostic. Lower Neck: No enlarged lymph nodes. Thyroid: No thyroid nodules which require sonographic follow up, per consensus guidelines. Axillae: No enlarged lymph nodes. Chest Wall: Unremarkable. Bones: Unremarkable. Lungs and Pleura: No pneumothorax or pleural effusions. No consolidation or suspicious nodules. Heart: Heart size is normal. No pericardial effusion. Thoracic Vessels: The aorta and pulmonary arteries demonstrate normal size. Mediastinum and Shiela: No enlarged lymph nodes. Esophagus: No wall thickening. No hiatal hernia. Upper Abdomen: Visualized upper abdomen solid organs and bowel loops appear normal. IMPRESSION: No suspicious pulmonary nodules. LUNG-RADS 1; continued annual screening, if eligible. Clinically Significant Non-pulmonary Findings: None. Dictated by: Kory Juarez M.D. on 08/03/2024 at 15:50 Approved by: Kory Juarez M.D. on 08/03/2024 at 15:51
== END ==
PROVIDERS: PCP Internal Medicine; Referring Provider Internal Medicine; Visit Provider Internal Medicine
DX: F17.210 Nicotine dependence, cigarettes, uncomplicated (principal); Z12.2 Encounter for screening for malignant neoplasm of respiratory organs
CPT/HCPCS: 71271

== ENCOUNTER → 2024-08-20 13:46 | Outpatient (CLI) | payer MEDICARE, SELFPAY ==
--- NOTE | 2024-08-20 13:47 | DI.CT.S_ITS ---
PROCEDURE: CT SINUS SCREEN WO CON INDICATIONS: JAW PAIN TECHNIQUE: Noncontrast 3.0 mm axial images acquired from the frontal sinuses to the mid-sella, with coronal and sagittal reformats. For radiation dose reduction, the following was used: automated exposure control, adjustment of mA and/or kV according to patient size. COMPARISON: None. FINDINGS: Image quality: Excellent. Maxillary Sinuses: No bony remodeling or destruction. Sinuses are clear. Ethmoid Air Cells: Remote bilateral subtotal ethmoidectomies. Residual sinuses are clear. Sphenoid Sinuses: No bony remodeling or destruction. Sinuses are clear. Frontal Sinuses: No bony remodeling or destruction. Sinuses are clear. Ostiomeatal Complexes: Ostiomeatal complexes are patent. No Omaira cells. Miscellaneous: Visualized intra-orbital contents are normal. No dilia bullosa or paradoxical turbinate curvature. No nasal septal deviation. TMJs are grossly unremarkable. IMPRESSION: 1. Remote subtotal bilateral ethmoidectomies. 2. No acute or chronic sinus disease. 3. TMJs are grossly unremarkable. Dictated by: Odin Toscano M.D. on 08/20/2024 at 18:03 Approved by: Odin Toscano M.D. on 08/20/2024 at 18:06
--- NOTE | 2024-08-20 13:47 | DI.CT.S_ITS ---
PROCEDURE: CT HEAD/BRAIN WO CON INDICATIONS: JAW PAIN TECHNIQUE: Noncontrast 4.5 mm thick angled axial sections acquired from the foramen magnum to the vertex, with coronal and sagittal reformats. For radiation dose reduction, the following was used: automated exposure control, adjustment of mA and/or kV according to patient size. COMPARISON: None. FINDINGS: Image quality: Diagnostic. CSF spaces: Basal cisterns are patent. No extra-axial fluid collections. The ventricles are symmetric in size and shape. Brain: No intracranial bleeds or masses. There is cerebral volume loss for age, with resultant ventricular and sulcal prominence. There are periventricular and deep white matter chronic small vessel ischemic changes. There is intracranial internal carotid artery atherosclerosis. Skull and face: Calvarium and visualized facial bones appear intact, without suspicious lesions. Sinuses: Visualized sinuses and mastoids are clear. IMPRESSION: No acute intracranial pathology. Dictated by: Odin Toscano M.D. on 08/20/2024 at 18:01 Approved by: Odin Toscano M.D. on 08/20/2024 at 18:03
== END ==
PROVIDERS: PCP Registered Nurse; Referring Provider Registered Nurse; Visit Provider Registered Nurse
DX: R68.84 Jaw pain (principal); Z98.890 Other specified postprocedural states
CPT/HCPCS: 70450; 70486

== ENCOUNTER → 2025-04-30 10:47 | Outpatient (CLI) | payer MEDICARE, SELFPAY ==
--- NOTE | 2025-04-30 10:49 | DI.MG.S_ITS ---
MM screening mammo BI: 04/30/2025. BI-RADS: 2 CLINICAL: 75-year old female for bilateral screening mammogram. Tyrer-Cuzick lifetime risk of 11.5%. Current reported family history of breast cancer: mother and maternal aunt. The patient had a prior left breast biopsy. PRIOR EXAMS 04/29/2023, 12/27/2020, 02/08/2017, 12/17/2015. MAMMOGRAPHY TECHNIQUE: 2D and 3D (tomosynthesis) digital mammographic views obtained, with additional images as needed for full coverage. Current study was also evaluated with a Computer Aided Detection (CAD) system. DENSITY C. The breasts are heterogeneously dense, which may obscure small masses. MAMMOGRAPHY FINDINGS Right: No suspicious mass, asymmetry, microcalcification, or other abnormality seen. Left: Biopsy marker present on the left. There are no suspicious masses, calcifications, or other findings in the breast. IMPRESSION: Right * No evidence of malignancy. Left * No evidence of malignancy with benign findings. RECOMMENDATIONS Bilateral * Annual screening mammography. OVERALL ASSESSMENT CATEGORY BI-RADS-2: Benign. The [employer] recommends annual screening mammography beginning at age 40 for women with average risk of breast cancer. ELECTRONICALLY SIGNED: Ida Dumont M.D. on 05/07/2025 at 11:51:56 AM PT Interpreting Station ID: [id number]
--- NOTE | 2025-04-30 10:49 | DI.RAD.S_ITS ---
PROCEDURE: XR DEXA AXIAL SKELETON INDICATIONS: Osteoporosis Screening COMPARISON: [facility], CR, XR DEXA AXIAL SKELETON, 04/29/2023, 10:26. FINDINGS: Lumbar Spine: Not evaluated Left Femoral Neck: Bone mineral density 0.636 g/cm2, T score -1.9. There is interval 3.9% increase in left femoral neck bone mineral density. Left Hip: Bone mineral density 0.759 g/cm2, T score -1.5. There is interval 2.7% increase in total left hip bone mineral density. Left Forearm: Bone mineral density 0.506 g/cm2, T score -3.1. There is interval 2.4% decrease in left forearm bone mineral density. Fracture Risk Calculation (when applicable): 10-year fracture risk of a major osteoporotic fracture 23 percent and of a hip fracture 15 percent. (T score greater or equal to -1.0 to: NORMAL) (T score from -1.1 to -2.4: OSTEOPENIA) (T score less than or equal to -2.5: OSTEOPOROSIS) IMPRESSION: Osteoporosis as above. Follow-up guidelines as follows: Osteoporosis: Consider a repeat DEXA and Vertebral Fracture Assessment (VFA) exam in 2 years or sooner if medically necessary, to reassess this patient's status. Osteopenia: Consider a repeat DEXA in 2-3 years to reassess this patient's status, or if there is a new clinical indication. Normal: Consider a repeat DEXA in 5 years or sooner, or if there is a new clinical indication. All treatment decisions require clinical judgment and consideration of individual patient factors, including patient preferences, comorbidities, previous drug use, risk factors not captured in the FRAX model (e.g., frailty, falls, vitamin D deficiency, increased bone turnover, interval significant decline in bone density ) and possible under- or over-estimation of fracture risk by FRAX. In addition, the NOF Guide recommends that FDA-approved medical therapies be considered in postmenopausal women and men age >= 50 years with a: * Hip or vertebral (clinical or morphometric) fracture * T-score of <=-2.5 at the spine or hip * Ten-year fracture probability by FRAX of >= 3% for hip fracture or >=20% for major osteoporotic fracture. Dictated by: Eleuterio Ivan M.D. on 04/30/2025 at 17:51 Approved by: Eleuterio Ivan M.D. on 04/30/2025 at 17:52
== END ==
LOC: RAD 10:49
PROVIDERS: PCP Registered Nurse; Referring Provider Registered Nurse; Visit Provider Registered Nurse
DX: Z12.31 Encounter for screening mammogram for malignant neoplasm of breast (principal); R92.333 Mammographic heterogeneous density, bilateral breasts; Z80.3 Family history of malignant neoplasm of breast; M81.0 Age-related osteoporosis without current pathological fracture
CPT/HCPCS: 77063; 77067; 77080